=== PATIENT | female | born 1975 | race Caucasian/White ===

== ENCOUNTER 2019-11-04 08:34 | Emergency (ER) | payer OTHER, SELFPAY ==
[2019-11-04 08:43] VITALS: BP 117/68; PULSE 68; RESP 16; TEMP 36.9; O2SAT 100
--- NOTE | 2019-11-04 08:49 | ED.GENADULT ---
HPI - General Adult General Chief complaint: Ear Stated complaint: Ear Pain Time Seen by Provider: 11/04/19 09:06 Source: patient Mode of arrival: ambulatory Limitations: no limitations History of Present Illness HPI narrative: 43-year-old female patient resents to the [facility] with complaints of right ear pain. Patient states that she has had this off and on for the past 2 weeks but is gotten increasingly worse the past couple of days. Patient states she is also been having some cold and sinus symptoms for the past 2 weeks as well that she has been taking Tylenol and ibuprofen for but denies taking any other medication for symptoms. Denies any fevers. Denies any sore throat or coughing but states that she has had a little bit of a stuffy nose. Patient denies any chest pain or shortness of breath. Patient denies getting a flu shot this year. Related Data Home Medications Medication Instructions Recorded Confirmed albuterol sulfate INHALATION 11/04/19 dextroamphetamine-amphetamine 11/04/19 hydrocodone-acetaminophen 11/04/19 ibuprofen 11/04/19 ipratropium-albuterol [Combivent INHALATION 11/04/19 Respimat] tramadol mg 11/04/19 zolpidem 11/04/19 Allergies Allergy/AdvReac Type Severity Reaction Status Date / Time No Known Allergies Allergy Unknown Verified 11/29/18 20:54 Review of Systems Review of Systems: Narrative: CONSTITUTIONAL: Denies fever, chills, or sweats. EYES: Denies visual changes, redness, or discharge. ENT: Positive rhinorrhea, congestion, denies sore throat, positive right otalgia. CARDIOVASCULAR: Denies chest pain, palpitations, or edema. RESPIRATORY: Denies cough or dyspnea. GASTROINTESTINAL: Denies abdominal pain, nausea, vomiting, or diarrhea. GENITOURINARY: Denies dysuria or hematuria. SKIN: Denies rash or itching. MUSCULOSKELETAL: Denies back pain, joint pain, or myalgia. NEUROLOGIC: Positive headache, denies numbness, or weakness. PSYCHIATRIC: Denies anxiety or depression. COUNTS INCLUDE 234 BEDS AT THE [facility] Family History Family History Father Hypertension Family history of elevated blood lipids Family history of congestive heart failure Family history of lung cancer Family history of coronary artery disease Social History Social History Smoking status: Current every day smoker Alcohol intake: never Comments At the time of my signature I agree with nursing past medical history, surgical, social, and family history. There is no relevant family history pertinent to the presenting complaint. Exam Narrative: Exam Narrative: GENERAL: Well-appearing, well-nourished, and in no acute distress. HEAD: Normocephalic, atraumatic. No tenderness noted to frontal maxillary sinuses on palpation. EYES: PERRLA and EOMI. ENT: Nares with erythema and edema noted bilaterally, no rhinorrhea or epistaxis. Mucous membranes moist. Posterior pharynx with no erythema, tonsillectomy, exudates or lesions present. The left TM is clear with no erythema or foreign bodies in the canal. The right TM does have a significant amount of fluid behind the ear but there is no erythema no foreign bodies in the canal. NECK: Supple. No lymphadenopathy CHEST: Clear to auscultation. No respiratory distress. HEART: Regular rate and rhythm. No murmur heard. Normal peripheral pulses. ABDOMEN: Soft, nontender, nondistended, normal active bowel sounds. EXTREMITIES: Normal range of motion. No edema. SKIN: Warm, dry, no rash. NEURO: No focal deficits. Alert and oriented x3. Course Vital Signs Vital signs: Vital Signs Temperature 36.9 C 11/04/19 08:43 Pulse Rate 68 11/04/19 08:43 Respiratory Rate 16 11/04/19 08:43 Blood Pressure 117/68 11/04/19 08:43 Pulse Oximetry 100 11/04/19 08:43 Temperature 36.9 C 11/04/19 08:43 Pulse Rate 68 11/04/19 08:43 Respiratory Rate 16 11/04/19 08:43 Blood Pressure 1
== END 2019-11-04 09:21 | disposition home or self-care (01) ==
PROVIDERS: Emergency Provider Nurse Practitioner Family; PCP Emergency Medicine
DX: J01.90 Acute sinusitis, unspecified (principal); H93.8X1 Other specified disorders of right ear; F17.200 Nicotine dependence, unspecified, uncomplicated; J45.909 Unspecified asthma, uncomplicated; M79.7 Fibromyalgia
CPT/HCPCS: 99213; G0463

== ENCOUNTER 2019-11-23 18:09 | Emergency (ER) | payer OTHER, SELFPAY ==
[2019-11-23 18:30] VITALS: BP 125/65; PULSE 67; RESP 16; TEMP 37.1; O2SAT 98
--- NOTE | 2019-11-23 18:37 | ED.GENADULT ---
HPI - General Adult General Chief complaint: Ear Stated complaint: Earache/Toothache Time Seen by Provider: 11/23/19 18:39 Source: patient Mode of arrival: ambulatory Limitations: no limitations History of Present Illness HPI narrative: 43-year-old female patient presents to the [facility] with complaints of right ear pain for the past 2 to 3 weeks. Patient states she was seen here 2 weeks ago and was given a daily antihistamine, nasal steroid and an oral steroid for fluid behind the ears. Patient states that the oral steroid really did not help much but continues to take the Flonase and Zyrtec which she also feels like is not helping much either. Patient states that the pain to the right ear is actually shooting down that she also making her jaw painful. Patient states that she does have a broken tooth and back that is been broken for a long time so she is unsure if the pain is actually coming from the tooth or the ear. Denies any fevers. Denies any stuffy nose, runny nose, coughing, chest pain, shortness of breath or abdominal pain. Related Data Home Medications Medication Instructions Recorded Confirmed albuterol sulfate INHALATION 11/04/19 dextroamphetamine-amphetamine 11/04/19 hydrocodone-acetaminophen 11/04/19 ibuprofen 11/04/19 ipratropium-albuterol [Combivent INHALATION 11/04/19 Respimat] tramadol mg 11/04/19 zolpidem 11/04/19 Allergies Allergy/AdvReac Type Severity Reaction Status Date / Time No Known Allergies Allergy Unknown Verified 11/29/18 20:54 Review of Systems Review of Systems: Narrative: CONSTITUTIONAL: Denies fever, chills, or sweats. EYES: Denies visual changes, redness, or discharge. ENT: Denies rhinorrhea, congestion, sore throat, positive right otalgia. Positive right-sided jaw pain CARDIOVASCULAR: Denies chest pain, palpitations, or edema. RESPIRATORY: Denies cough or dyspnea. GASTROINTESTINAL: Denies abdominal pain, nausea, vomiting, or diarrhea. GENITOURINARY: Denies dysuria or hematuria. SKIN: Denies rash or itching. MUSCULOSKELETAL: Denies back pain, joint pain, or myalgia. NEUROLOGIC: Denies headache, numbness, or weakness. PSYCHIATRIC: Denies anxiety or depression. [facility]MERLY [facility], 1928–1983 Social History Social History Smoking status: Current every day smoker Alcohol intake: never Comments At the time of my signature I agree with nursing past medical history, surgical, social, and family history. There is no relevant family history pertinent to the presenting complaint. Exam Narrative: Exam Narrative: GENERAL: Well-appearing, well-nourished, and in no acute distress. HEAD: Normocephalic, atraumatic. EYES: PERRLA and EOMI. ENT: Nares clear, no rhinorrhea or epistaxis. Mucous membranes moist. Posterior pharynx with no erythema, tonsillar margin, exudates or lesions present. There is a broken tooth to the right back molar on the bottom but there is no surrounding erythema or tenderness noted on palpation. Bilateral TMs are clear no erythema or foreign bodies in the canal. No fluid noted behind the TMs at this time. NECK: Supple. No lymphadenopathy CHEST: Clear to auscultation. No respiratory distress. HEART: Regular rate and rhythm. No murmur heard. Normal peripheral pulses. ABDOMEN: Soft, nontender, nondistended, normal active bowel sounds. EXTREMITIES: Normal range of motion. No edema. SKIN: Warm, dry, no rash. NEURO: No focal deficits. Alert and oriented x3. Course Vital Signs Vital signs: Vital Signs Temperature 37.1 C 11/23/19 18:30 Pulse Rate 67 11/23/19 18:30 Respiratory Rate 16 11/23/19 18:30 Blood Pressure 125/65 11/23/19 18:30 Pulse Oximetry 98 11/23/19 18:30 Temperature 37.1 C 11/23/19 18:30 Pulse Rate 67 11/23/19 18:30 Respiratory Rate 16 11/23/19 18:30 Blood Pressure 125/65 11/23/19 18:30 Pulse Oximetry 98 11/23/19 18:30 Vital signs reviewed. Medical Decision Making
== END 2019-11-23 18:52 | disposition home or self-care (01) ==
PROVIDERS: Emergency Provider Nurse Practitioner Family; PCP Emergency Medicine
DX: H92.01 Otalgia, right ear (principal); F17.200 Nicotine dependence, unspecified, uncomplicated
CPT/HCPCS: 99213; G0463

== ENCOUNTER 2020-08-25 20:59 | Emergency (ER) | payer OTHER, SELFPAY ==
--- NOTE | ~2020-08-25 | XR_ITS ---
EXAMINATION: XR chest 1V portable DATE: 08/25/2020 21:51 INDICATION: Cough, congestion, wheezing, fever, body aches TECHNIQUE: frontal view of the chest was obtained. COMPARISON: Chest radiograph dated 05/08/2018 FINDINGS: The lungs remain clear with no focal airspace opacities, pulmonary edema, pleural effusion or pneumot horax. The cardiomediastinal silhouette is normal. Visualized bones and soft tissues are unremarkable . IMPRESSION: 1. No acute cardiopulmonary disease. Reviewed, dictated and finalized at location [facility]. [facility]
[2020-08-25 21:02] VITALS: BP 132/77; PULSE 101; RESP 18; TEMP 36.8
--- NOTE | 2020-08-25 21:17 | ED.URI ---
HPI - URI/Sore Throat General Chief Complaint: Upper Respiratory Infection Stated Complaint: flu like symptoms Time Seen by Provider: 08/25/20 21:17 Source: patient Mode of arrival: ambulatory Limitations: no limitations History of Present Illness HPI Narrative: Patient is a 44-year-old who presents for evaluation of flulike symptoms. States she started feeling unwell a week ago with low-grade fever, sore throat, rhinorrhea and congestion. No loss of sense of taste or smell. Patient reports fatigue and myalgias. She reports sore throat has improved. She reports dry cough without hemoptysis. She reports that she has been wheezing, she does endorse that she is a daily smoker. She denies any history of COPD or emphysema. Patient reports some intermittent shortness of breath, she denies any chest pain. Patient is concerned she may have pneumonia or influenza. Patient has follow-up with her primary care physician next week. Related Data Home Medications Medication Instructions Recorded Confirmed albuterol sulfate INHALATION 11/04/19 dextroamphetamine-amphetamine 11/04/19 hydrocodone-acetaminophen 11/04/19 ibuprofen 11/04/19 ipratropium-albuterol [Combivent INHALATION 11/04/19 Respimat] tramadol mg 11/04/19 zolpidem 11/04/19 Allergies Allergy/AdvReac Type Severity Reaction Status Date / Time No Known Allergies Allergy Unknown Verified 11/29/18 20:54 Review of Systems Review of Systems: Narrative: CONSTITUTIONAL: Reports intermittent fever and chills EYES: Denies visual changes, redness, or discharge. ENT: Reports rhinorrhea, congestion, sore throat CARDIOVASCULAR: Denies chest pain, palpitations, or edema. RESPIRATORY: Reports cough, reports intermittent mild shortness of breath GASTROINTESTINAL: Denies abdominal pain, nausea, vomiting, or diarrhea. GENITOURINARY: Denies dysuria or hematuria. SKIN: Denies rash or itching. MUSCULOSKELETAL: Denies back pain, joint pain, reports myalgias NEUROLOGIC: Denies headache, numbness, or weakness. [facility] Past Medical History Medical History Asthma Endometriosis Fibromyalgia Surgical History Surgical History H/O: hysterectomy Family History Family History Father Hypertension Family history of elevated blood lipids Family history of congestive heart failure Family history of lung cancer Family history of coronary artery disease Social History Social History Smoking status: Current every day smoker Alcohol intake: never Exam Narrative: Exam Narrative: GENERAL: Awake, alert, conversant HEAD: Normocephalic, atraumatic. EYES: PERRLA and EOMI. ENT: Nares clear, no rhinorrhea or epistaxis. Mucous membranes moist. Oropharynx is clear. No erythema or exudate. NECK: Supple. CHEST: No respiratory distress, breathing even and non labored, faint bilateral expiratory wheezing in the upper and lower lobes, coarse respirations HEART: Regular rate, sinus rhythm, no murmur ABDOMEN:Non distended, non tender EXTREMITIES: Normal range of motion. No edema. SKIN: Warm, dry, no rash. NEURO:No focal deficits. Alert and oriented x3 Course Vital Signs Vital signs: Vital Signs Temperature 36.8 C 08/25/20 21:02 Pulse Rate 101 H 08/25/20 21:02 Respiratory Rate 18 08/25/20 21:02 Blood Pressure 132/77 08/25/20 21:02 Temperature 36.8 C 08/25/20 21:02 Pulse Rate 72 08/25/20 22:27 Respiratory Rate 20 08/25/20 22:27 Blood Pressure 132/77 08/25/20 21:02 MDM - URI/Sore Throat MDM Narrative Medical decision making narrative: Patient presented for evaluation of fever, myalgias, cough. The time of assessment, ABCs are intact and vital signs are stable. No increased work of breathing or respiratory distress. Patient with m
--- NOTE | 2020-08-25 22:05 | PC.NURSE ---
Addendum entered by Diane Young RN 08/25/20 22:23: patient seen at 2150 Original Note: patient brought back to ED room 21 with possible flu-like symptoms vs covid. see triage notes. patient has been out in our waiting area due to no available beds. sitting on stretcher. alert. oriented. assessments documented. no distress. call light in reach. aware of expected wait time.
[2020-08-25 22:11] LABS: Basophils Absolute Auto 0.1 K/mm3 (0.0-0.1); Basophils Percent Auto 0.5 % (0.2-1.2); Eosinophils Absolute Auto 0.5 K/mm3 (0-0.3); Eosinophils Percent Auto 4.4 % (0-4.4); Hematocrit 41.6 % (37.0-47.0); Hemoglobin 14.1 g/dL (12.0-15.0); Immature Granulocyte Absolute 0.03 K/mm3 (0.00-0.031); Immature Granulocyte Percent A 0.3 % (0-0.5); Lymphocytes Absolute Auto 3.65 K/mm3 (0.9-3.2); Lymphocytes Percent Auto 33.2 % (18.3-44.2); Mean Corpuscular HGB Conc 33.9 g/dl (32-36); Mean Corpuscular Hemoglobin 29.6 pg (26-34); Mean Corpuscular Volume 87.2 fl (80-100); Mean Platelet Volume 9.1 fl (7.4-10.4); Monocytes Absolute Auto 0.6 K/mm3 (0.1-0.6); Monocytes Percent Auto 5.7 % (2.6-8.5); Neutrophils Absolute Auto 6.1 K/mm3 (1.3-6.7); Neutrophils Percent Auto 55.9 % (45.5-73.1); Platelet Count Result 436 k/mm3 (150-375); Red Blood Count 4.77 M/mm3 (4.2-5.4); Red Cell Distribution Width 13.3 % (11.5-14.5)
--- NOTE | 2020-08-25 22:15 | PC.NURSE ---
flu swab, strep swab and covid swab done. electronic prepress technician in room for labs. patient updated on current treatment plan and expected wait time. call light in reach. ice water offered. kleenex given.
[2020-08-25 22:19] VITALS: PULSE 68; RESP 20
[2020-08-25 22:19] LABS: Anion Gap 8 mmol/L (8-16); Blood Urea Nitrogen 12 mg/dL (7-17); Calcium 9.7 mg/dL (8.4-10.2); Carbon Dioxide 28 mmol/L (22-30); Chloride 102 mmol/L (98-107); Estimated CRCL calculation 80 ml/min; Estimated Glomerular Filt Rate > 60; Glucose 93 mg/dL (65-105); Potassium 4.1 mmol/L (3.4-5.0); Sodium 138 mmol/L (137-145)
[2020-08-25] MEDS: ALBUTEROL SULFATE NEB 2.5 MG/0.5 ML INH 5 MG INHALATION (22:19)
[2020-08-25] MEDS: IPRATROPIUM BR 0.02% INH SOLN 0.5 MG/2.5 ML VIAL INHALATION (22:19)
--- NOTE | 2020-08-25 22:23 | PC.NURSE ---
respiratory in room now.
--- NOTE | 2020-08-25 22:24 | PC.NURSE ---
patient updated on flu results and strep results.
[2020-08-25 22:27] VITALS: PULSE 72; RESP 20
--- NOTE | 2020-08-25 22:36 | PC.NURSE ---
provider here to see patient.
[2020-08-25 22:47] VITALS: BP 124/70; PULSE 68; RESP 16; TEMP 36.6; O2SAT 96
[2020-08-26 14:03] LABS: SARS-CoV-2 RNA PCR Negative
== END 2020-08-25 22:51 | disposition home or self-care (01) ==
PROVIDERS: Emergency Provider Emergency Medicine; PCP Emergency Medicine
DX: J06.9 Acute upper respiratory infection, unspecified (principal); Z20.828 Contact with and (suspected) exposure to other viral communicable diseases; J45.909 Unspecified asthma, uncomplicated; N80.9 Endometriosis, unspecified; M79.7 Fibromyalgia; F17.200 Nicotine dependence, unspecified, uncomplicated
CPT/HCPCS: 36415; 71045; 80048; 85025; 87081; 87635; 87804; 87880; 94640; 99283; C9803; U0003

== ENCOUNTER 2021-05-09 16:05 | Emergency (ER) | payer OTHER, SELFPAY ==
[2021-05-09 16:43] VITALS: BP 133/78; PULSE 74; RESP 18; TEMP 36.4; O2SAT 98
[2021-05-09 17:14] LABS: Basophils Absolute Auto 0.1 K/mm3 (0.0-0.1); Basophils Percent Auto 0.9 % (0.2-1.2); Eosinophils Absolute Auto 0.5 K/mm3 (0-0.3); Eosinophils Percent Auto 6.4 % (0-4.4); Hematocrit 41.5 % (37.0-47.0); Hemoglobin 13.8 g/dL (12.0-15.0); Immature Granulocyte Absolute 0.02 K/mm3 (0.00-0.031); Immature Granulocyte Percent A 0.2 % (0-0.5); Lymphocytes Absolute Auto 2.74 K/mm3 (0.9-3.2); Lymphocytes Percent Auto 33.5 % (18.3-44.2); Mean Corpuscular HGB Conc 33.3 g/dl (32-36); Mean Corpuscular Hemoglobin 29.5 pg (26-34); Mean Corpuscular Volume 88.7 fl (80-100); Mean Platelet Volume 9.7 fl (7.4-10.4); Monocytes Absolute Auto 0.7 K/mm3 (0.1-0.6); Monocytes Percent Auto 8.3 % (2.6-8.5); Neutrophils Absolute Auto 4.1 K/mm3 (1.3-6.7); Neutrophils Percent Auto 50.7 % (45.5-73.1); Platelet Count Result 381 k/mm3 (150-375); Red Blood Count 4.68 M/mm3 (4.2-5.4); Red Cell Distribution Width 13.2 % (11.5-14.5); White Blood Count 8.2 K/mm3 (4.5-10.0)
[2021-05-09 17:24] LABS: Anion Gap 9 mmol/L (8-16); Blood Urea Nitrogen 11 mg/dL (7-17); Calcium 9.9 mg/dL (8.4-10.2); Carbon Dioxide 26 mmol/L (22-30); Chloride 105 mmol/L (98-107); Estimated CRCL calculation 69 ml/min; Estimated Glomerular Filt Rate > 60; Glucose 85 mg/dL (65-110); Potassium 4.1 mmol/L (3.4-5.0); Sodium 140 mmol/L (137-145)
[2021-05-09 18:51] LABS: Add Urine Microscopic? YES; Amorphous Sediment Urine Few; Appearance Urine Cloudy (Clear); Bacteria Urine Trace /hpf; Bilirubin Urine 1+ (Negative); Blood Urine 2+ (Negative); Color Urine Amber (Yellow); Glucose Urine UA Negative (Negative); Ketones Urine Negative (Negative); Leukocyte Esterase Ur Negative LEU/UL (Negative); Mucus Urine Heavy /lpf; Nitrate Urine Negative (Negative); Protein Urine 1+ mg/dL (Negative); RBC Urine 21-50 /hpf (0-2); Squamous Epithelial Cell Urine Many /hpf (Few); WBC Urine 0-3 /hpf
[2021-05-09 18:52] LABS: Specific Grav Ur 1.035 (1.001-1.035)
--- NOTE | 2021-05-09 19:53 | ED.GENADULT ---
HPI - General Adult General Chief complaint: Back Pain/Injury Stated complaint: Middle back pain Time Seen by Provider: 05/09/21 18:58 Source: patient and RN notes reviewed Mode of arrival: ambulatory Limitations: no limitations History of Present Illness HPI narrative: Patient is a 45-year-old female who presents to emergency department for evaluation of blood low back pain on the right side for the last couple of days pain does not radiate not made worse with activity or movement patient denies any other injury or trauma does have history of chronic low back pain also notes chronic blood in her urine she has not followed up with a specialist for does not appear uncomfortable or distressed upon arrival Related Data Home Medications Medication Instructions Recorded Confirmed albuterol sulfate INHALATION 11/04/19 dextroamphetamine-amphetamine 11/04/19 hydrocodone-acetaminophen 11/04/19 ibuprofen 11/04/19 ipratropium-albuterol [Combivent INHALATION 11/04/19 Respimat] tramadol mg 11/04/19 zolpidem 11/04/19 Allergies Allergy/AdvReac Type Severity Reaction Status Date / Time No Known Allergies Allergy Unknown Verified 11/29/18 20:54 Review of Systems Review of Systems: All systems reviewed & are unremarkable except as noted in HPI and below PMFSH Past Medical History Medical History Asthma Endometriosis Fibromyalgia Surgical History Surgical History H/O: hysterectomy Family History Family History Father Hypertension Family history of elevated blood lipids Family history of congestive heart failure Family history of lung cancer Family history of coronary artery disease Social History Social History Smoking status: Current every day smoker Alcohol intake: never Gender identity (if verbalized by the patient): Female Exam Narrative: GENERAL: Well-appearing, well-nourished, and in no acute distress. HEAD: Normocephalic, atraumatic. EYES: PERRLA and EOMI. ENT: Nares clear, no rhinorrhea or epistaxis. Mucous membranes moist. CHEST: Clear to auscultation. No respiratory distress. No wheezes rales or rhonchi HEART: Regular rate and rhythm. No murmur heard. Normal peripheral pulses. ABDOMEN: Soft, nontender, nondistended EXTREMITIES: Normal range of motion. No edema. No tenderness of the lumbar region or deformities noted SKIN: Warm, dry, no rash. NEURO: No focal deficits. Alert and oriented x3. Cranial nerves II through XII grossly intact PSYCH: Normal mood and affect. Course Course Emergency Course: Patient in the room in no distress aware of case findings treatment plan diagnosis will follow with urology for hematuria and primary care for her low back is felt appropriate for outpatient reevaluation and agrees with this plan patient notes she has had some constipation which will also be treated Vital Signs Vital signs: Vital Signs Temperature 97.6 F 05/09/21 16:43 Pulse Rate 74 05/09/21 16:43 Respiratory Rate 18 05/09/21 16:43 Blood Pressure 133/78 05/09/21 16:43 Pulse Oximetry 98 05/09/21 16:43 Temperature 97.6 F 05/09/21 16:43 Pulse Rate 74 05/09/21 16:43 Respiratory Rate 18 05/09/21 16:43 Blood Pressure 133/78 05/09/21 16:43 Pulse Oximetry 98 05/09/21 16:43 Medical Decision Making MDM Narrative Medical decision making narrative: Patient in the room no distress will be treated for constipation and back pain her abdomen is nontender she is afebrile nontoxic-appearing and without emesis and felt appropriate for outpatient reevaluation Vital Signs Vital Signs: Vital Signs Temperature 97.6 F 05/09/21 16:43 Pulse Rate 74 05/09/21 16:43 Respiratory Rate 18 05/09/21 16:43 Blood Pressure 133/78 05/09/21 16:
[2021-05-09 20:07] VITALS: BP 122/78; PULSE 61; RESP 18; TEMP 36.2; O2SAT 100
== END 2021-05-09 20:09 | disposition home or self-care (01) ==
PROVIDERS: Emergency Provider Emergency Medicine; PCP Emergency Medicine
DX: M54.5 Low back pain (principal); K59.00 Constipation, unspecified; J45.909 Unspecified asthma, uncomplicated; N80.9 Endometriosis, unspecified; M79.7 Fibromyalgia; F17.200 Nicotine dependence, unspecified, uncomplicated
CPT/HCPCS: 36415; 80048; 81001; 85025; 99283

== ENCOUNTER 2021-07-15 16:52 | Emergency (ER) | payer OTHER, SELFPAY ==
--- NOTE | ~2021-07-15 | XR_ITS ---
EXAMINATION: XR foot LT min 3V EXAM DATE: 07/15/2021 17:18 INDICATION: Slipped, injured 1st metatarsal . Left foot pain. Initial encounter. TECHNIQUE: Left foot dorsoplantar, lateral and oblique projections obtained and reviewed. There is n o prior study for comparison. FINDINGS: Left metatarsal bones unremarkable. There are no acute fractures or dislocations identifi ed. There is no subcutaneous gas. The soft tissue is unremarkable. There are no radiopaque foreig n bodies. IMPRESSION: 1. XR foot LT min 3V exam without acute osseous findings. Reviewed, dictated and finalized at location G.
[2021-07-15 17:12] VITALS: BP 96/79; PULSE 65; RESP 16; TEMP 36.4; O2SAT 99
--- NOTE | 2021-07-15 17:33 | ED.LOWEXIN ---
HPI - Extremity Injury (Lower) General Chief Complaint: Extremity Injury, Lower Stated Complaint: left foot Pain Time Seen by Provider: 07/15/21 17:39 Source: patient Mode of arrival: ambulatory Limitations: no limitations History of Present Illness HPI Narrative: Lorenza Hanna is a 45 yo female with PMH of asthma fibromyalgia brought to [facility] after sliding on some hill losing her balance and causing pain to her left great toe on the solar side. She has had some swelling and pain when she tries to put on shoes or tennis shoes so she has been wearing thongs and sliders all week but the pain is still persistent. Here for evaluation of toe Related Data Home Medications Medication Instructions Recorded Confirmed albuterol sulfate INHALATION 11/04/19 dextroamphetamine-amphetamine 11/04/19 hydrocodone-acetaminophen 11/04/19 ibuprofen 11/04/19 ipratropium-albuterol [Combivent INHALATION 11/04/19 Respimat] tramadol mg 11/04/19 zolpidem 11/04/19 cyclobenzaprine mg 07/15/21 Allergies Allergy/AdvReac Type Severity Reaction Status Date / Time No Known Allergies Allergy Unknown Verified 07/15/21 17:29 Review of Systems Review of Systems: CONSTITUTIONAL: Denies fever, chills, sweats. EYES: Denies visual changes, redness, discharge. ENT: Denies rhinorrhea, congestion, sore throat, otalgia. CARDIOVASCULAR: Denies chest pain, palpitations, edema. RESPIRATORY: Denies dyspnea, wheezing, cough GASTROINTESTINAL: Denies abdominal pain, nausea, vomiting, diarrhea. GENITOURINARY: Denies dysuria, hematuria, abnormal discharge SKIN: Denies rash or itching. NEUROLOGIC: Denies numbness, or focal weakness. PSYCHIATRIC: Denies anxiety or depression. Left great toe pain PMFSH Past Medical History Medical History Asthma Endometriosis Fibromyalgia Surgical History Surgical History H/O: hysterectomy Family History Family History Father Hypertension Family history of elevated blood lipids Family history of congestive heart failure Family history of lung cancer Family history of coronary artery disease Social History Social History Smoking status: Current every day smoker Alcohol intake: never Gender identity (if verbalized by the patient): Female Comments At time of signature, I agree with nursing past medical, surgical, social and family history. There is no relevant family history pertinent to the presenting complaint. Exam Narrative: GENERAL: This is a well-nourished, well-developed patient, in mild distress. HEAD: normocephalic, atraumatic. EYES:Sclera clear/white. Vision is grossly intact. EARS: External ears normal, Hearing grossly intact. NOSE: External nose normal without nasal discharge, nares without redness, no rhinorrhea. THROAT: Mucous membranes moist, NECK: Neck supple, CARDIOVASCULAR: Regular rate and rhythm without murmurs, gallops, or rubs. RESPIRATORY: Clear to auscultation. Breath sounds equal bilaterally. No wheezes, rales, or rhonchi. GASTROINTESTINAL: Abdomen soft, SKIN: warm, intact with no suspicious lesions or rash, good texture and turgor. NEURO: awake, alert, and oriented to person, place and time. There were no obvious focal neurologic abnormalities. Steady gait EXTREMITIES: Normal range of motion. Left great toe is mildly swollen no ecchymosis the patient is unable to flex toe as she states she used to be able to and can do so with the right toe; mild pain on walking BACK: Nontender without deformity Course Course Emergency Course: Patient came after sliding and stubbing her toe X-ray shows no osseous findings no acute fracture subluxation or dislocation Patient placed in postop shoe and Trung wrap and told to take left 600 mg of ibuprofen 3 time
[2021-07-15 17:35] VITALS: BP 96/79; PULSE 65; RESP 16; TEMP 36.4; O2SAT 99
== END 2021-07-15 17:55 | disposition home or self-care (01) ==
PROVIDERS: Emergency Provider Nurse Practitioner; PCP Emergency Medicine
DX: S93.502A Unspecified sprain of left great toe, initial encounter (principal); W10.2XXA Fall (on)(from) incline, initial encounter; J45.909 Unspecified asthma, uncomplicated; N80.9 Endometriosis, unspecified; M79.7 Fibromyalgia
CPT/HCPCS: 73630; 99213; G0463

== ENCOUNTER 2021-07-27 15:10 | Emergency (ER) | payer OTHER, SELFPAY ==
--- NOTE | 2021-07-27 15:21 | ED.URI ---
HPI - URI/Sore Throat General Chief Complaint: Upper Respiratory Infection Stated Complaint: sore throat Time Seen by Provider: 07/27/21 15:40 Source: patient and RN notes reviewed Mode of arrival: ambulatory Limitations: no limitations History of Present Illness HPI Narrative: Lorenza is a 45-year-old female patient arrives ambulatory to the [facility]. Patient states she has had sneezing and cough since July 22. Patient states she has a sore throat feels like her chest hurts when she takes a deep breath. Patient states the family has been quarantined since when her daughter was sent home with a fever. Patient states that her sister was overall for dinner last Monday on 07/19 and was diagnosed with Covid on July 24. Patient states she has not used any [id number]-jgradoj medicines. Patient states that both daughters have also been sick since last . MD elicited complaint: sore throat and nasal congestion Related Data Home Medications Medication Instructions Recorded Confirmed albuterol sulfate INHALATION 11/04/19 dextroamphetamine-amphetamine 11/04/19 hydrocodone-acetaminophen 11/04/19 tramadol mg 11/04/19 zolpidem 11/04/19 cyclobenzaprine mg 07/15/21 Allergies Allergy/AdvReac Type Severity Reaction Status Date / Time No Known Allergies Allergy Unknown Verified 07/15/21 17:29 Review of Systems Review of Systems: CONSTITUTIONAL: Denies body aches, fever, chills, or sweats. EYES: Denies visual changes, redness, or discharge. ENT: Denies rhinorrhea,+ congestion,+ sore throat, + right otalgia. CARDIOVASCULAR: Denies chest pain, palpitations, or edema. RESPIRATORY: Denies dyspnea; + cough. GASTROINTESTINAL: Denies abdominal pain, +nausea, denies vomiting, or diarrhea. GENITOURINARY: Denies dysuria or hematuria. SKIN: Denies rash, itching, or wounds. MUSCULOSKELETAL: Denies back pain, joint pain, or myalgia. NEUROLOGIC: Denies headache, numbness, tingling, or weakness. PSYCH: Denies depression or anxiety. All systems reviewed & are unremarkable except as noted in HPI and below PMFSH Past Medical History Medical History Asthma Endometriosis Fibromyalgia Surgical History Surgical History H/O: hysterectomy Family History Family History Father Hypertension Family history of elevated blood lipids Family history of congestive heart failure Family history of lung cancer Family history of coronary artery disease Social History Social History Smoking status: Current every day smoker Alcohol intake: never Gender identity (if verbalized by the patient): Female Comments At time of signature, I have reviewed and agree with nursing past medical, surgical, social and family history unless otherwise noted. Please see nursing chart for further information. There is no relevant family history pertinent to the presenting complaint Exam Narrative: GENERAL: Well-appearing, well-nourished, and in no acute distress. HEAD: Normocephalic, atraumatic. EYES: EOMI. No redness or drainage. Conjunctivae normal. ENT: Mucous membranes pink and moist. Nares membranes erythemic. clear rhinorrhea. TMs : Right TM with moderate fluid, mild bulging, no erthema. Left TM with minimal fluid, no erythema. Throat with minimal erythema, clear post nasal drainage. Uvula midline. NECK: Normal AROM. Supple. No lymphadenopathy. CHEST: No respiratory distress. Clear to auscultation. MUSCULOSKELETAL: No bony tenderness. EXTREMITIES: Normal range of motion. No edema. SKIN: Warm, dry, no rash. Capillary refill normal. Normal skin turgor. NEURO: No focal deficits. Alert and oriented x3. Gait steady. PSYCH: Normal affect. No signs of depression or anxiety. C
[2021-07-27 15:29] VITALS: BP 115/75; PULSE 60; RESP 16; TEMP 36; O2SAT 99
== END 2021-07-27 16:20 | disposition home or self-care (01) ==
PROVIDERS: Emergency Provider Nurse Practitioner Family
DX: J00 Acute nasopharyngitis [common cold] (principal); Z20.822 Contact with and (suspected) exposure to COVID-19; J45.909 Unspecified asthma, uncomplicated; N80.9 Endometriosis, unspecified; M79.7 Fibromyalgia
CPT/HCPCS: 87426; 99212; C9803; G0463

== ENCOUNTER 2021-11-04 17:12 | Outpatient (CLI) | payer OTHER, SELFPAY ==
--- NOTE | ~2021-11-04 | MM_ITS ---
EXAMINATION: MM screening omari BI w nena HISTORY: Screening mammogram TECHNIQUE: Craniocaudal and mediolateral oblique 3-D tomosynthesis images were obtained and synthetic 2-D images were generated. CAD analysis was submitted and interpreted. COMPARISON: 01/07/2019 bilateral screening mammogram BREAST PARENCHYMAL COMPOSITION: The breasts are heterogeneously dense, which may obscure small masses . FINDINGS: There is no evidence of suspicious mass, calcification, or architectural distortion to sugg est malignancy in either breast. There has been no suspicious interval change. IMPRESSION: 1. No mammographic evidence of malignancy. 2. Recommend routine screening mammography in one year. BI-RADS Category 1: Negative Reviewed, dictated and finalized at location A. [employer]
== END 2021-11-04 17:13 | disposition home or self-care (01) ==
PROVIDERS: Visit Provider Emergency Medicine
DX: Z12.31 Encounter for screening mammogram for malignant neoplasm of breast (principal)
CPT/HCPCS: 77063; 77067

== ENCOUNTER 2021-12-24 12:21 | Emergency (ER) | payer OTHER, SELFPAY ==
[2021-12-24 12:33] VITALS: BP 93/73; PULSE 69; RESP 16; TEMP 36.8; O2SAT 99
--- NOTE | 2021-12-24 13:17 | ED.URI ---
HPI - URI/Sore Throat General Chief Complaint: Upper Respiratory Infection Stated Complaint: sore throat Time Seen by Provider: 12/24/21 12:50 Source: patient and RN notes reviewed Mode of arrival: ambulatory Limitations: no limitations History of Present Illness HPI Narrative: Patient presents today complaining of sore throat that started this morning. Both of her daughters also present with her with sore throats, and one has been diagnosed with strep throat. She currently rates her pain 4/10 and has tried no [id number] treatment prior to arrival. She denies any additional symptoms. MD elicited complaint: sore throat Related Data Home Medications Medication Instructions Recorded Confirmed dextroamphetamine-amphetamine 20 mg PO DAILY 11/04/19 12/24/21 hydrocodone-acetaminophen 1 tablet PO DIRECTED PRN 11/04/19 12/24/21 tramadol 50 mg PO DIRECTED 11/04/19 12/24/21 zolpidem 10 mg PO HS 11/04/19 12/24/21 Allergies Allergy/AdvReac Type Severity Reaction Status Date / Time No Known Allergies Allergy Unknown Verified 12/24/21 12:25 Review of Systems Review of Systems: CONSTITUTIONAL: Denies body aches, fever, chills, or sweats. EYES: Denies visual changes, redness, or discharge. ENT: Denies rhinorrhea, congestion, or otalgia.+ Sore throat CARDIOVASCULAR: Denies chest pain, palpitations, or edema. RESPIRATORY: Denies cough or dyspnea. GASTROINTESTINAL: Denies abdominal pain, nausea, vomiting, or diarrhea. GENITOURINARY: Denies dysuria or hematuria. SKIN: Denies rash, itching, or wounds. MUSCULOSKELETAL: Denies back pain, joint pain, or myalgia. NEUROLOGIC: Denies headache, numbness, tingling, or weakness. PSYCH: Denies depression or anxiety. [facility] Past Medical History Medical History Asthma Endometriosis Fibromyalgia Surgical History Surgical History H/O: hysterectomy Family History Family History Father Hypertension Family history of elevated blood lipids Family history of congestive heart failure Family history of lung cancer Family history of coronary artery disease Social History Social History Smoking status: Current every day smoker Alcohol intake: never Gender identity (if verbalized by the patient): Female Comments At time of signature, I have reviewed and agree with nursing past medical, surgical, social and family history unless otherwise noted. Please see nursing chart for further information. There is no relevant family history pertinent to the presenting complaint Exam Narrative: GENERAL: Well-appearing, well-nourished, and in no acute distress. HEAD: Normocephalic, atraumatic. EYES: EOMI. No redness or drainage. Conjunctivae normal. ENT: Mucous membranes pink and moist. Nares clear. No rhinorrhea. TMs normal bilaterally. Throat mildly erythematous without edema or exudate. Uvula midline. NECK: Normal AROM. Supple. 1 right posterior lymph node is mildly inflamed. CHEST: No respiratory distress. Clear to auscultation. HEART: Regular rate and rhythm. No murmur appreciated. Normal peripheral pulses. EXTREMITIES: Normal range of motion. No edema. SKIN: Warm, dry, no rash. Capillary refill normal. Normal skin turgor. NEURO: No focal deficits. Alert and oriented x3. Gait steady. PSYCH: Normal affect. No signs of depression or anxiety. Course Course Level of Care: Express Care Visit Vital Signs Vital signs: Vital Signs Temperature 98.3 F 12/24/21 12:33 Pulse Rate 69 12/24/21 12:33 Respiratory Rate 16 12/24/21 12:33 Blood Pressure 93/73 L 12/24/21 12:33 Pulse Oximetry 99 12/24/21 12:33 Temperature 98.3 F 12/24/21 12:33 Pulse Rate 69 12/24/21 12:33 Respiratory Rate 16 12/24/21 12:33 Blood P
== END 2021-12-24 13:27 | disposition home or self-care (01) ==
PROVIDERS: Emergency Provider Nurse Practitioner; PCP Emergency Medicine
DX: J02.9 Acute pharyngitis, unspecified (principal); F17.200 Nicotine dependence, unspecified, uncomplicated; J45.909 Unspecified asthma, uncomplicated; N80.9 Endometriosis, unspecified; M79.7 Fibromyalgia
CPT/HCPCS: 87081; 87880; 99213; G0463

== ENCOUNTER 2022-11-16 18:54 | Emergency (ER) | payer OTHER, SELFPAY ==
--- NOTE | 2022-11-16 18:56 | ED.URI ---
HPI - URI/Sore Throat General Chief Complaint: Upper Respiratory Infection Stated Complaint: fever/sore throat Time Seen by Provider: 11/16/22 18:55 Source: patient Mode of arrival: ambulatory Limitations: no limitations History of Present Illness HPI Narrative: Lorenza is a 46-year-old female patient presenting to the clinic today with complaints of fever and sore throat x 1 day. She reports she has had a fever of 101.8? F. Denies any known exposure to anybody with COVID, flu, or strep. MD elicited complaint: sore throat and nasal congestion Related Data Home Medications Medication Instructions Recorded Confirmed dextroamphetamine-amphetamine 20 20 mg PO DAILY 11/04/19 12/24/21 mg tablet hydrocodone 5 mg-acetaminophen 325 1 tablet PO DIRECTED PRN Pain 11/04/19 12/24/21 mg tablet tramadol 50 mg tablet 50 mg PO DIRECTED 11/04/19 12/24/21 zolpidem 10 mg tablet 10 mg PO HS 11/04/19 12/24/21 Allergies Allergy/AdvReac Type Severity Reaction Status Date / Time No Known Allergies Allergy Unknown Verified 11/16/22 18:59 Review of Systems Review of Systems: Pertinent positives per HPI. Patient denies any rash, headache, visual changes, dizziness, cough, shortness of breath, chest pain, palpitations, nausea, vomiting, diarrhea, constipation, abdominal pain, or any urinary issues. PMFSH Past Medical History Medical History Asthma Endometriosis Fibromyalgia Surgical History Surgical History H/O: hysterectomy Family History Family History Father Hypertension Family history of elevated blood lipids Family history of congestive heart failure Family history of lung cancer Family history of coronary artery disease Social History Social History Smoking status: Current every day smoker Alcohol intake: never Gender identity (if verbalized by the patient): Female Comments At the time of my signature, I reviewed and agree with the nursing past medical, surgical, social, and family history. There is no relevant family history pertinent to the patient complaint. Exam Narrative: General: Well-developed, well nourished, in no apparent distress Head: Normocephalic, atraumatic Eyes: Pupils equally round and reactive to light bilaterally, EOM intact, sclera and conjunctive clear, no discharge, lids normal Ears: TMs intact and clear, ear canals clear, no drainage, grossly hearing normal. Nose: Nares patent, clear discharge, no inflammation, no sinus tenderness. Mouth: Oral pharynx without lesions or masses, good dentition, MMM. Oropharynx red, postnasal drip Neck: Supple, trachea midline, no enlargement of anterior or posterior cervical nodes, no thyroid masses or goiter palpable. Cardio: Regular rate and rhythm, s1 and s2 normal, no murmur appreciated. Resp: Clear to auscultation bilaterally, no rhonchi, rales, wheezing or rubs Course Course Emergency Course: Portions of this record may have been created with voice recognition software. Level of Care: Express Care Visit Vital Signs Vital signs: Vital Signs Temperature 37.0 C 11/16/22 18:57 Pulse Rate 75 11/16/22 18:57 Respiratory Rate 16 11/16/22 18:57 Blood Pressure 124/76 11/16/22 18:57 Pulse Oximetry 100 11/16/22 18:57 Oxygen Delivery Room Air 11/16/22 18:57 Temperature 37.0 C 11/16/22 18:57 Pulse Rate 75 11/16/22 18:57 Respiratory Rate 16 11/16/22 18:57 Blood Pressure 124/76 11/16/22 18:57 Pulse Oximetry 100 11/16/22 18:57 Oxygen Delivery Room Air 11/16/22 18:57 Vital signs reviewed MDM - URI/Sore Throat MDM Narrative Medical decision making narrative: At the time of visit patient is resting comfortably on exam table. Strep screen was nega
[2022-11-16 18:57] VITALS: BP 124/76; PULSE 75; RESP 16; TEMP 37; O2SAT 100
== END 2022-11-16 19:35 | disposition home or self-care (01) ==
PROVIDERS: Emergency Provider Nurse Practitioner Family; PCP Emergency Medicine
DX: J02.8 Acute pharyngitis due to other specified organisms (principal); F17.200 Nicotine dependence, unspecified, uncomplicated; Z79.891 Long term (current) use of opiate analgesic; Z20.822 Contact with and (suspected) exposure to COVID-19
CPT/HCPCS: 87081; 87426; 87804; 87880; 99213; C9803; G0463

== ENCOUNTER 2023-02-18 10:32 | Emergency (ER) | payer OTHER, SELFPAY ==
[2023-02-18 10:47] VITALS: BP 122/74; PULSE 62; RESP 16; TEMP 36.6; O2SAT 98
--- NOTE | 2023-02-18 11:38 | ED.URI ---
HPI - URI/Sore Throat General Chief Complaint: Upper Respiratory Infection Stated Complaint: itchy throat, productive cough History of Present Illness HPI Narrative: 47-year-old female presented for complaint of sore throat occasional nonproductive cough since yesterday. Endorses daughter with similar symptoms. Has not taken anything for symptoms. Denies shortness of breath, wheezing, nausea, vomiting, fevers or chills. Related Data Home Medications Medication Instructions Recorded Confirmed dextroamphetamine-amphetamine 20 20 mg PO DAILY 11/04/19 02/18/23 mg tablet hydrocodone 5 mg-acetaminophen 325 1 tablet PO DIRECTED PRN Pain 11/04/19 02/18/23 mg tablet tramadol 50 mg tablet 50 mg PO DIRECTED 11/04/19 02/18/23 zolpidem 10 mg tablet 10 mg PO HS 11/04/19 02/18/23 Allergies Allergy/AdvReac Type Severity Reaction Status Date / Time No Known Allergies Allergy Unknown Verified 02/18/23 10:39 Review of Systems Review of Systems: CONSTITUTIONAL: Denies body aches, fever, chills, or sweats. EYES: Denies visual changes, redness, or discharge. ENT: Denies rhinorrhea, congestion, or otalgia. CARDIOVASCULAR: Denies chest pain, palpitations, or edema. RESPIRATORY: Denies dyspnea. GASTROINTESTINAL: Denies abdominal pain, nausea, vomiting, or diarrhea. SKIN: Denies rash, itching, or wounds. MUSCULOSKELETAL: Denies back pain, joint pain, or myalgia. NEUROLOGIC: Denies headache PMFSH Past Medical History Medical History Asthma Endometriosis Fibromyalgia Surgical History Surgical History H/O: hysterectomy Family History Family History Father Hypertension Family history of elevated blood lipids Family history of congestive heart failure Family history of lung cancer Family history of coronary artery disease Social History Social History Smoking status: Current every day smoker Alcohol intake: never Gender identity (if verbalized by the patient): Female Exam Narrative: GENERAL: well-appearing, no acute distress. EYES: conjunctivae clear ENT: Mucous membranes moist. TM pearly sellers with normal light reflex bilaterally; no tragal tenderness. Oropharynx erythematous without lesions. Tonsils absent. No drooling, no hoarseness, no trismus, uvula midline. No tripod positioning, hot potato voice, or soft palate swelling. NECK: Supple. No lymphadenopathy CHEST: Clear to auscultation, breath sounds equal. No respiratory distress, speaks in full sentences. HEART: Regular rate and rhythm. No murmur heard. SKIN: Warm, dry, no rash. NEURO: Alert and oriented x3. Course Course Emergency Course: Patient is aware of diagnosis, understands and agrees to treatment plan. Anticipatory guidance given. Patient agrees to follow-up as directed and is aware of reasons to seek care at the emergency department. Portions of this record may have been created with voice recognition software Level of Care: Express Care Visit Vital Signs Vital signs: Vital Signs Temperature 98 F 02/18/23 10:47 Pulse Rate 62 02/18/23 10:47 Respiratory Rate 16 02/18/23 10:47 Blood Pressure 122/74 02/18/23 10:47 Pulse Oximetry 98 02/18/23 10:47 Oxygen Delivery Room Air 02/18/23 10:47 Temperature 98 F 02/18/23 10:47 Pulse Rate 62 02/18/23 10:47 Respiratory Rate 16 02/18/23 10:47 Blood Pressure 122/74 02/18/23 10:47 Pulse Oximetry 98 02/18/23 10:47 Oxygen Delivery Room Air 02/18/23 10:47 MDM - URI/Sore Throat MDM Narrative Medical decision making narrative: strep result reviewed with pt. mother is requesting antibiotic treatment at this time, advised against it and to wait for culture. Mother refused. Advise supportive treatments.
== END 2023-02-18 11:45 | disposition home or self-care (01) ==
PROVIDERS: Emergency Provider Nurse Practitioner Family; PCP Emergency Medicine
DX: J02.9 Acute pharyngitis, unspecified (principal); F17.200 Nicotine dependence, unspecified, uncomplicated; J45.909 Unspecified asthma, uncomplicated; N80.9 Endometriosis, unspecified; M79.7 Fibromyalgia
CPT/HCPCS: 87081; 87880; 99213; G0463

== ENCOUNTER 2023-02-22 11:43 | Outpatient (CLI) | payer OTHER, SELFPAY ==
--- NOTE | ~2023-02-22 | MM_ITS ---
EXAMINATION: MM screening omari BI w nena HISTORY: Screening mammogram, family history of breast cancer in her mother. TECHNIQUE: Craniocaudal and mediolateral oblique 3-D tomosynthesis images were obtained and synthetic 2-D images were generated. CAD analysis was submitted and interpreted. COMPARISON: 11/04/2021, 01/07/2019 BREAST PARENCHYMAL COMPOSITION: The breasts are heterogeneously dense, which may obscure small masses . FINDINGS: RIGHT BREAST: No suspicious mass, calcification, or architectural distortion are identified to sugges t malignancy. There has been no suspicious interval change. LEFT BREAST: There is a possible mass in the middle third of the outer breast 5 cm from the nipple. I n addition, there is an asymmetry in the posterior third of inner breast on the craniocaudal view. IMPRESSION: 1. Left breast findings as above. 2. Additional mammographic views and possible breast ultrasound are recommended. BI-RADS Category 0: Incomplete: Needs additional imaging evaluation. Reviewed, dictated and finalized at location A. IMPRESSION: 1. Left breast findings as above. 2. Additional mammographic views and possible breast ultrasound are recommended . BI-RADS Category 0: Incomplete: Needs additional imaging evaluation.
== END 2023-02-22 11:44 | disposition home or self-care (01) ==
LOC: ANHIMG 11:44
PROVIDERS: PCP Emergency Medicine; Visit Provider Emergency Medicine
DX: Z12.31 Encounter for screening mammogram for malignant neoplasm of breast (principal); R92.8 Other abnormal and inconclusive findings on diagnostic imaging of breast
CPT/HCPCS: 77063; 77067

== ENCOUNTER 2023-04-27 14:40 | Emergency (ER) | payer OTHER, SELFPAY ==
--- NOTE | ~2023-04-27 | XR_ITS ---
XR chest 2V DATE: 04/27/2023 15:31 INDICATION: Chest pain TECHNIQUE: PA and lateral views COMPARISON: 08/25/2020 portable AP chest FINDINGS: Normal heart size. No hilar or mediastinal enlargement. No pulmonary infiltrate or consolid ation, pleural effusion or pulmonary vascular congestion or pneumothorax is detected. Included skelet al structures are unremarkable. IMPRESSION: No active cardiopulmonary disease Reviewed, dictated and finalized at location L.
--- NOTE | 2023-04-27 14:41 | ECG_ITS ---
Measurements Intervals [place] Rate: 62 P: 65 [place]: 134 QRS: -4 QRSD: 80 T: 48 QT: 419 QTc: 427 Interpretive Statements SINUS RHYTHM RSR' IN V1 OR V2, PROBABLY NORMAL VARIANT BASELINE ARTIFACT- II, III BORDERLINE ECG NO PREVIOUS ECG AVAILABLE FOR COMPARISON Electronically Signed On 04-27-2023 15:43:39 CDT by Rey Bliss D.O.
[2023-04-27 14:42] VITALS: BP 146/83; PULSE 62; RESP 16; TEMP 36.4; O2SAT 99
[2023-04-27 15:06] LABS: Basophils Absolute Auto 0.1 K/mm3 (0.0-0.1); Basophils Percent Auto 0.8 % (0.2-1.2); Eosinophils Absolute Auto 0.3 K/mm3 (0-0.3); Eosinophils Percent Auto 3.9 % (0-4.4); Hematocrit 36.5 % (37.0-47.0); Hemoglobin 12.3 g/dL (12.0-15.0); Immature Granulocyte Absolute 0.01 K/mm3 (0.00-0.031); Immature Granulocyte Percent A 0.1 % (0-0.5); Mean Corpuscular HGB Conc 33.7 g/dl (32-36); Mean Corpuscular Hemoglobin 29.1 pg (26-34); Mean Corpuscular Volume 86.3 fl (80-100); Mean Platelet Volume 9.2 fl (7.4-10.4); Monocytes Absolute Auto 0.5 K/mm3 (0.1-0.6); Monocytes Percent Auto 7.4 % (2.6-8.5); Neutrophils Absolute Auto 4.3 K/mm3 (1.3-6.7); Neutrophils Percent Auto 58.8 % (45.5-73.1); Platelet Count Result 380 k/mm3 (150-375); Red Blood Count 4.23 M/mm3 (4.2-5.4); Red Cell Distribution Width 12.9 % (11.5-14.5); White Blood Count 7.3 K/mm3 (4.5-10.0)
[2023-04-27 15:15] LABS: Prothrombin Time 13.9 Seconds (11.1-14.7)
[2023-04-27 15:16] LABS: Alanine Aminotransferase 20 U/L (6-35); Albumin Level 4.3 g/dL (3.5-5.1); Alkaline Phosphatase 52 U/L (38-126); Anion Gap 9 mmol/L (8-16); Aspartate Amino Transferase 24 U/L (14-36); Bilirubin,Total 0.5 mg/dL (0.2-1.3); Blood Urea Nitrogen 9 mg/dL (7-17); Carbon Dioxide 24 mmol/L (22-30); Chloride 103 mmol/L (98-107); Estimated CRCL calculation 68 ml/min; Estimated Glomerular Filt Rate > 60; Glucose 108 mg/dL (65-110); Lipase 86 U/L (23-300); Partial Thromboplastin Time 24.8 SECONDS (22.3-36.8); Potassium 3.1 mmol/L (3.4-5.0); Sodium 136 mmol/L (137-145)
[2023-04-27 15:28] LABS: Troponin I < 0.012 ng/mL (0.000-0.034)
[2023-04-27 16:54] VITALS: O2SAT 100
[2023-04-27 18:52] LABS: Troponin I < 0.012 ng/mL (0.000-0.034)
[2023-04-27 19:45] VITALS: PULSE 53; RESP 22; O2SAT 100
[2023-04-27 19:54] VITALS: BP 123/73
--- NOTE | 2023-04-27 20:08 | ED.CHESTPAIN ---
HPI - Chest Pain General Chief Complaint: Chest Pain Stated Complaint: cp Time Seen by Provider: 04/27/23 16:45 History of Present Illness HPI narrative: Patient is a 47-year-old female who presents ER with chest pain. Right side going into the armpit. Occurred for several seconds. Then it went away on its own. It then returned for 15 minutes. No radiation into the jaw. No dyspnea. No runny nose or sore throat or productive cough. Initially she could not talk due to the pain. No history of heart disease. No lower extremity swelling. No hemoptysis. Patient reports she was particularly active doing yard work yesterday. Related Data Home Medications Medication Instructions Recorded Confirmed dextroamphetamine-amphetamine 20 20 mg PO DAILY 11/04/19 02/18/23 mg tablet hydrocodone 5 mg-acetaminophen 325 1 tablet PO DIRECTED PRN Pain 11/04/19 02/18/23 mg tablet tramadol 50 mg tablet 50 mg PO DIRECTED 11/04/19 02/18/23 zolpidem 10 mg tablet 10 mg PO HS 11/04/19 02/18/23 Allergies Allergy/AdvReac Type Severity Reaction Status Date / Time No Known Allergies Allergy Unknown Verified 04/27/23 16:59 Review of Systems Review of Systems: All systems reviewed & are unremarkable except as noted in HPI and below Constitutional: Constitutional: Denies chills, Denies fatigue and Denies fever(s) ENT: Denies nasal congestion and Denies sore throat Cardiovascular: Cardiovascular: Reports chest pain, Denies rapid heart rate and Denies radiating jaw, neck or arm pain Respiratory: Respiratory: Denies cough and Denies dyspnea Gastrointestinal: Gastrointestinal: Denies abdominal pain, Denies nausea and Denies vomiting Integumentary/Breasts: Skin/Breast: Denies erythema and Denies rash PMF Past Medical History Medical History Asthma Endometriosis Fibromyalgia Surgical History Surgical History H/O: hysterectomy Family History Family History Father Hypertension Family history of elevated blood lipids Family history of congestive heart failure Family history of lung cancer Family history of coronary artery disease Social History Social History Smoking status: Current every day smoker Alcohol intake: never Gender identity (if verbalized by the patient): Female Exam Narrative: GENERAL: Well-appearing, well-nourished, and in no acute distress. HEAD: Normocephalic, atraumatic. ENT: Mucous membranes moist. CHEST: Clear to auscultation. No respiratory distress. HEART: Regular rate and rhythm. Normal peripheral pulses. ABDOMEN: Soft, nontender, nondistended. EXTREMITIES: Normal range of motion. No edema. SKIN: Warm, dry, no rash. NEURO: Alert and oriented x3. PSYCH: Normal mood and affect. Course Course Emergency Course: Patient resting comfortably. Troponin negative x2. EKG reassuring. Discharge home. Vital Signs Vital signs: Vital Signs Temperature 97.6 F 04/27/23 14:42 Pulse Rate 62 04/27/23 14:42 Respiratory Rate 16 04/27/23 14:42 Blood Pressure 146/83 H 04/27/23 14:42 Pulse Oximetry 99 04/27/23 14:42 Oxygen Delivery Room Air 04/27/23 14:42 Temperature 97.6 F 04/27/23 14:42 Pulse Rate 53 L 04/27/23 19:45 Respiratory Rate 22 H 04/27/23 19:45 Blood Pressure 123/73 04/27/23 19:54 Pulse Oximetry 100 04/27/23 19:45 Oxygen Delivery Room Air 04/27/23 16:54 MDM - Chest Pain Lab Data 04/27/23 14:57 04/27/23 14:57 Labs: Lab Results 04/27/23 04/27/23 Range/Units 14:57 18:21 WBC 7.3 (4.5-10.0) K/mm3 RBC 4.23 (4.2-5.4) M/mm3 Hgb 12.3 (12.0-15.0) g/dL Hct 36.5 L (37.0-47.0) % MCV 86.3 (80-100) fl MCH 29.1 (26-34) pg MCHC 33.7 (32-36) g/dl RDW
[2023-04-27 20:28] VITALS: BP 117/67
== END 2023-04-27 20:28 | disposition home or self-care (01) ==
PROVIDERS: Emergency Provider Emergency Medicine; PCP Emergency Medicine
DX: R07.9 Chest pain, unspecified (principal); J45.909 Unspecified asthma, uncomplicated; N80.9 Endometriosis, unspecified; M79.7 Fibromyalgia; F17.200 Nicotine dependence, unspecified, uncomplicated; R94.31 Abnormal electrocardiogram [ECG] [EKG]
CPT/HCPCS: 36415; 71046; 80053; 83690; 84484; 85025; 85610; 85730; 93005; 99284

== ENCOUNTER 2023-05-03 12:16 | Outpatient (CLI) | payer OTHER, SELFPAY ==
--- NOTE | ~2023-05-03 | MMUS_ITS ---
EXAMINATION: MM diagnostic omari LT w nena, US breast LT limited HISTORY: Left breast asymmetry and possible left breast mass on screening mammogram TECHNIQUE: Additional 3-D tomosynthesis images of the left breast were performed and synthetic 2-D im ages were generated. CAD analysis was submitted and interpreted. High resolution limited left breast ultrasound was performed. COMPARISON: 02/22/2023, 11/04/2021, 01/07/2019 BREAST PARENCHYMAL COMPOSITION: The breasts are heterogeneously dense, which may obscure small masses . FINDINGS: MAMMOGRAPHIC FINDINGS: There is a 5 mm round, obscured, equal density mass in the middle third of the outer breast at the 3: 00 location 4.5 cm from the nipple. A subtle asymmetry persists in the posterior third of the upper i nner breast 8 cm from the nipple. ULTRASOUND: There is a 6 mm cyst at the 2:00 location 3 cm from the nipple corresponding to the mammographic find ing in the upper outer breast. No sonographic correlate is identified for the asymmetry of the inner breast. IMPRESSION: 1. Probably benign asymmetry of the inner left breast. 2. Recommend 6 month follow-up left diagnostic mammogram and possible ultrasound. BI-RADS category 3, probably benign findings. Reviewed, dictated and finalized at location A. IMPRESSION: 1. Probably benign asymmetry of the inner left breast. 2. Recommend 6 month follow-up left diagnostic mammogram and possible ultrasoun d. BI-RADS category 3, probably benign findings.
== END 2023-05-03 12:17 | disposition home or self-care (01) ==
PROVIDERS: PCP Emergency Medicine; Visit Provider Emergency Medicine
DX: R92.8 Other abnormal and inconclusive findings on diagnostic imaging of breast (principal)
CPT/HCPCS: 76642; 77061; 77065; G0279

== ENCOUNTER 2023-06-09 17:58 | Emergency (ER) | payer OTHER, SELFPAY ==
[2023-06-09 18:13] VITALS: BP 136/68; PULSE 63; RESP 16; TEMP 37; O2SAT 100
--- NOTE | 2023-06-09 19:05 | ED.URI ---
HPI - URI/Sore Throat General Chief Complaint: Upper Respiratory Infection Stated Complaint: Sore Throat Time Seen by Provider: 06/09/23 18:52 Source: patient and RN notes reviewed Mode of arrival: ambulatory Limitations: no limitations History of Present Illness HPI Narrative: Patient presents today complaining of a sore throat since yesterday. Denies any additional symptoms. Currently rates her pain 3/10 and has tried no [id number] treatment prior to arrival. One of her daughters tested positive for strep throat today. Related Data Home Medications Medication Instructions Recorded Confirmed dextroamphetamine-amphetamine 20 20 mg PO DAILY 11/04/19 02/18/23 mg tablet hydrocodone 5 mg-acetaminophen 325 1 tablet PO DIRECTED PRN Pain 11/04/19 02/18/23 mg tablet tramadol 50 mg tablet 50 mg PO DIRECTED 11/04/19 02/18/23 zolpidem 10 mg tablet 10 mg PO HS 11/04/19 02/18/23 Allergies Allergy/AdvReac Type Severity Reaction Status Date / Time No Known Allergies Allergy Unknown Verified 06/09/23 18:41 Review of Systems Review of Systems: CONSTITUTIONAL: Denies body aches, fever, chills, or sweats. EYES: Denies visual changes, redness, or discharge. ENT: Denies rhinorrhea, congestion, or otalgia.+ sore throat CARDIOVASCULAR: Denies chest pain, palpitations, or edema. RESPIRATORY: Denies cough or dyspnea. GASTROINTESTINAL: Denies abdominal pain, nausea, vomiting, or diarrhea. GENITOURINARY: Denies dysuria or hematuria. SKIN: Denies rash, itching, or wounds. MUSCULOSKELETAL: Denies back pain, joint pain, or myalgia. NEUROLOGIC: Denies headache, numbness, tingling, or weakness. PSYCH: Denies depression or anxiety. [facility] Past Medical History Medical History Asthma Endometriosis Fibromyalgia Surgical History Surgical History H/O: hysterectomy Family History Family History Father Hypertension Family history of elevated blood lipids Family history of congestive heart failure Family history of lung cancer Family history of coronary artery disease Social History Social History Smoking status: Current every day smoker Alcohol intake: never Gender identity (if verbalized by the patient): Female Comments At time of signature, I have reviewed and agree with nursing past medical, surgical, social and family history unless otherwise noted. Please see nursing chart for further information. There is no relevant family history pertinent to the presenting complaint Exam Narrative: GENERAL: Well-appearing, well-nourished, and in no acute distress. HEAD: Normocephalic, atraumatic. EYES: EOMI. No redness or drainage. Conjunctivae normal. ENT: Mucous membranes pink and moist. Nares clear. No rhinorrhea. TMs normal bilaterally. Throat mildly erythematous without edema or exudate. Uvula midline. NECK: Normal AROM. Supple. No lymphadenopathy. CHEST: No respiratory distress. Clear to auscultation. HEART: Regular rate and rhythm. No murmur appreciated. Normal peripheral pulses. EXTREMITIES: Normal range of motion. No edema. SKIN: Warm, dry, no rash. Capillary refill normal. Normal skin turgor. NEURO: No focal deficits. Alert and oriented x3. Gait steady. PSYCH: Normal affect. No signs of depression or anxiety. Course Course Level of Care: Express Care Visit Vital Signs Vital signs: Vital Signs Temperature 98.6 F 06/09/23 18:13 Pulse Rate 63 06/09/23 18:13 Respiratory Rate 16 06/09/23 18:13 Blood Pressure 136/68 06/09/23 18:13 Pulse Oximetry 100 06/09/23 18:13 Oxygen Delivery Room Air 06/09/23 18:13 Temperature 98.6 F 06/09/23 18:13 Pulse Rate 63 06/09/23 18:13 Respiratory Rate 16 06/09/23 18:13 Blood
== END 2023-06-09 19:14 | disposition home or self-care (01) ==
PROVIDERS: Emergency Provider Nurse Practitioner; PCP Emergency Medicine
DX: J02.9 Acute pharyngitis, unspecified (principal); F17.200 Nicotine dependence, unspecified, uncomplicated; J45.909 Unspecified asthma, uncomplicated; N80.9 Endometriosis, unspecified; M79.7 Fibromyalgia
CPT/HCPCS: 87081; 87880; 99213; G0463

== ENCOUNTER 2023-11-04 11:47 | Emergency (ER) | payer OTHER, SELFPAY ==
[2023-11-04 11:58] VITALS: BP 133/77; PULSE 71; RESP 16; TEMP 37.4; O2SAT 99
--- NOTE | 2023-11-04 12:09 | ED.GENADULT ---
HPI - General Adult General Chief complaint: Back Pain/Injury Stated complaint: right lower back pain Time Seen by Provider: 11/04/23 12:09 Source: patient, RN notes reviewed and old records reviewed Mode of arrival: ambulatory Limitations: no limitations History of Present Illness HPI narrative: 47-year-old female presents to the [facility] with right lower back pain. Patient states that it started this morning. Also reports some urgency and frequency with urination. Denies burning. Denies abdominal pain. No nausea or vomiting. States that she takes had Vicodin on a regular basis Onset (ago): hour(s) Treatments prior to arrival: none Related Data Home Medications Medication Instructions Recorded Confirmed dextroamphetamine-amphetamine 20 20 mg PO DAILY 11/04/19 11/04/23 mg tablet hydrocodone 5 mg-acetaminophen 325 1 tablet PO DIRECTED PRN Pain 11/04/19 11/04/23 mg tablet tramadol 50 mg tablet 50 mg PO DIRECTED 11/04/19 11/04/23 zolpidem 10 mg tablet 10 mg PO HS 11/04/19 11/04/23 valacyclovir 500 mg tablet See Rx Instructions .Route .COMPLEX 11/04/23 11/04/23 Allergies Allergy/AdvReac Type Severity Reaction Status Date / Time No Known Allergies Allergy Unknown Verified 11/04/23 12:01 Review of Systems Review of Systems: All systems reviewed & are unremarkable except as noted in HPI and below Constitutional: Constitutional: Reports no additional constitutional complaints Eyes: Eyes: Reports no additional eye complaints ENT: Reports system reviewed and no additional complaints, except as documented Cardiovascular: Cardiovascular: Reports no additional cardiovascular complaints, Denies chest pain and Denies dyspnea Respiratory: Respiratory: Reports no additional respiratory complaints, Denies chest congestion, Denies cough and Denies dyspnea Gastrointestinal: Gastrointestinal: Reports no additional gastrointestinal complaints, Denies abdominal pain, Denies nausea and Denies vomiting Genitourinary: Genitourinary: Reports as per HPI Musculoskeletal: Musculoskeletal: Reports as per HPI and Reports back pain Integumentary/Breasts: Skin/Breast: Reports system reviewed and no additional complaints, except as docu Neurologic: Reports system reviewed and no additional complaints, except as documented Psychiatric: Psychiatric: Reports no additional psychiatric complaints Allergic/Immunologic: Allergic/Immunologic: Reports no additional allergic/immunologic complaints PMFSH Past Medical History Medical History Asthma Endometriosis Fibromyalgia Surgical History Surgical History H/O: hysterectomy Family History Family History Father Hypertension Family history of elevated blood lipids Family history of congestive heart failure Family history of lung cancer Family history of coronary artery disease Social History Social History Smoking status: Current every day smoker Alcohol intake: never Gender identity (if verbalized by the patient): Female Comments At the time of my signature, I reviewed and agree with the nursing past medical, surgical, social, and family history. There is no relevant family history pertinent to the patient complaint. Exam Const: General: cooperative, healthy appearing, comfortable, no acute distress, well developed, alert and well nourished Nutritional Appearance: well nourished Orientation/consciousness: patient oriented x3 Limitations: no limitations HENMT: Head: normal to inspection Ears: hearing grossly normal bilaterally and external ears normal Face/Nose/Sinus: Normal external nose present, Normal nares present, Normal nasal mucous membranes and turbinates present, normal facial exam and face symmetric Face and sinus: normal facial e
== END 2023-11-04 12:57 | disposition home or self-care (01) ==
PROVIDERS: Emergency Provider Nurse Practitioner; PCP Emergency Medicine
DX: N39.0 Urinary tract infection, site not specified (principal); J45.909 Unspecified asthma, uncomplicated; M79.7 Fibromyalgia; N80.9 Endometriosis, unspecified; F17.200 Nicotine dependence, unspecified, uncomplicated
CPT/HCPCS: 81003; 87086; 99213; G0463

== ENCOUNTER 2024-01-31 10:08 | Outpatient (CLI) | payer OTHER, SELFPAY ==
--- NOTE | ~2024-01-31 | MMUS_ITS ---
EXAMINATION: MM diagnostic omari BI w nena, US breast BI complete HISTORY: Six-month follow-up of probable benign mammographic asymmetry of left breast TECHNIQUE: ML, MLO and CC 3-D tomosynthesis images of both breasts were performed and synthetic 2-D i mages were generated. CAD analysis was submitted and interpreted. High resolution bilateral complete breast ultrasound examination including all 4 quadrants and subareolar area of each breast was perfor med. COMPARISON: 05/03/2023 diagnostic left mammogram and limited left breast ultrasound examination 02/22/2023, 11/04/2019 bilateral screening mammogram examinations BREAST PARENCHYMAL COMPOSITION: The breasts are heterogeneously dense, which may obscure small masses . FINDINGS: MAMMOGRAPHIC FINDINGS: There is a low-density circumscribed approximately 7 mm mass in the upper outer left breast at mid de pth (MLO Tomosynthesis image /, ML Tomosynthesis image ). No suspicious mass or architectural distortion, malignant calcification, skin thickening or retractio n or significant new or developing density is detected. ULTRASOUND: No suspicious mass or suspicious shadowing of either breast is detected. 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 Bilateral benign cysts; no evidence of malignancy 2. Routine annual mammographic screening is recommended BI-RADS Category 2: Benign finding(s). Reviewed, dictated and finalized at location A. IMPRESSION: 1. Bilateral benign cysts; no evidence of malignancy 2. Routine annual mammographic screening is recommended BI-RADS Category 2: Benign finding(s).
== END 2024-01-31 10:09 | disposition home or self-care (01) ==
LOC: ANHIMG 11:47
PROVIDERS: PCP Emergency Medicine; Visit Provider Emergency Medicine
DX: R92.2 Inconclusive mammogram (principal); N63.20 Unspecified lump in the left breast, unspecified quadrant
CPT/HCPCS: 76641; 77061; 77062; 77065; 77066; G0279

== ENCOUNTER 2024-07-16 10:34 | Emergency (ER) | payer OTHER, SELFPAY ==
[2024-07-16 10:50] VITALS: BP 117/69; PULSE 62; RESP 16; TEMP 36.3; O2SAT 100
--- NOTE | 2024-07-16 11:06 | ED.URI ---
HPI - URI/Sore Throat General Chief Complaint: Upper Respiratory Infection Stated Complaint: Sore Throat Time Seen by Provider: 07/16/24 10:35 Source: patient Mode of arrival: ambulatory Limitations: no limitations History of Present Illness HPI Narrative: Patient is a 48-year-old female who presents with congestion and sore throat started yesterday. Denies any fever, chills, nausea vomiting, diarrhea, abdominal pain, ear pain, cough. Has not taken anything for her symptoms Related Data Home Medications Medication Instructions Recorded Confirmed dextroamphetamine-amphetamine 20 20 mg PO DAILY 11/04/19 07/16/24 mg tablet hydrocodone 5 mg-acetaminophen 325 1 tablet PO DIRECTED PRN Pain 11/04/19 07/16/24 mg tablet tramadol 50 mg tablet 50 mg PO DIRECTED 11/04/19 07/16/24 zolpidem 10 mg tablet 10 mg PO HS 11/04/19 07/16/24 valacyclovir 500 mg tablet 500 mg PO DAILY 11/04/23 07/16/24 Allergies Allergy/AdvReac Type Severity Reaction Status Date / Time No Known Allergies Allergy Unknown Verified 07/16/24 10:54 Review of Systems Review of Systems: All systems reviewed & are unremarkable except as noted in HPI and below Constitutional: Constitutional: Denies body ache(s), Denies chills, Denies fatigue, Denies fever(s), Denies headache(s), Denies malaise and Denies weakness Eyes: Eyes: Denies blurry vision, Denies itchy eyes and Denies loss of vision ENT: Denies otalgia, Denies headache(s), Reports nasal congestion, Denies sinus pain and Reports sore throat Cardiovascular: Cardiovascular: Denies chest pain, Denies irregular heart rhythm and Denies dyspnea Respiratory: Respiratory: Denies cough and Denies dyspnea Gastrointestinal: Gastrointestinal: Denies abdominal pain, Denies diarrhea, Denies nausea and Denies vomiting Musculoskeletal: Musculoskeletal: Denies back pain, Denies myalgias and Denies arthralgias Integumentary/Breasts: Skin/Breast: Denies pruritus and Denies rash Neurologic: Denies headache(s), Denies loss of vision and Denies weakness Psychiatric: Psychiatric: Reports no additional psychiatric complaints Endocrine: Endocrine: Denies fatigue Allergic/Immunologic: Allergic/Immunologic: Denies itchy eyes PMFSH Past Medical History Medical History Asthma Endometriosis Fibromyalgia Surgical History Surgical History H/O: hysterectomy Family History Family History Father Hypertension Family history of elevated blood lipids Family history of congestive heart failure Family history of lung cancer Family history of coronary artery disease Social History Social History Smoking status: Current every day smoker Alcohol intake: never Gender identity (if verbalized by the patient): Female Comments At time of signature, agree with nursing past medical, surgical, social and family history. There is no relevant family history pertinent to the presenting complaint. Exam Const: General: cooperative, healthy appearing, comfortable, no acute distress and well nourished Nutritional Appearance: well nourished Orientation/consciousness: patient oriented x3 Limitations: no limitations HENMT: Head: normal to inspection, normocephalic and atraumatic Ears: hearing grossly normal bilaterally, external ears normal, TM's normal bilaterally, EAC's normal and no periauricular adenopathy Face/Nose/Sinus: Normal external nose present, Abnormal mucous membranes and turbinates present erythematous bilateral and diffuse, normal facial exam, sinuses nontender and face symmetric Face and sinus: normal facial exam, sinuses nontender and face symmetric Mouth: Yes Normal oral and palatal mucosa present, Yes lip normal, Yes tongue normal, Yes Normal salivary glands and ducts present, Yes
== END 2024-07-16 11:45 | disposition home or self-care (01) ==
PROVIDERS: Emergency Provider Nurse Practitioner Family; PCP Emergency Medicine
DX: J06.9 Acute upper respiratory infection, unspecified (principal); F17.200 Nicotine dependence, unspecified, uncomplicated; J45.909 Unspecified asthma, uncomplicated; N80.9 Endometriosis, unspecified; M79.7 Fibromyalgia
CPT/HCPCS: 99211; G0463

== ENCOUNTER 2024-09-19 13:02 | Emergency (ER) | payer OTHER, SELFPAY ==
[2024-09-19 13:16] VITALS: BP 131/74; PULSE 77; RESP 18; TEMP 36.6; O2SAT 100
--- NOTE | 2024-09-19 13:26 | ED.URI ---
HPI - URI/Sore Throat General Chief Complaint: Upper Respiratory Infection Stated Complaint: Fever/Sore Throat Source: patient, family, RN notes reviewed and old records reviewed Mode of arrival: ambulatory Limitations: no limitations History of Present Illness HPI Narrative: Patient presents accompanied by her daughter. She is complaining of sore throat for 1 day. She is unsure of fever status. She has been taking [id number] medications for her symptoms with poor relief. She is concerned that she has strep throat, reports that her mother lives with her and her daughter, and she was recently diagnosed with strep. No drooling or stridor, able to manage own secretions. Not in any distress at this time Related Data Home Medications ?Medication ?Instructions ?Recorded ?Confirmed ?Last Taken ?Type dextroamphetamine-amphetamine 20 20 mg PO DAILY 11/04/19 07/16/24 Unknown History mg tablet hydrocodone 5 mg-acetaminophen 325 1 tablet PO DIRECTED PRN Pain 11/04/19 07/16/24 Unknown History mg tablet tramadol 50 mg tablet 50 mg PO DIRECTED 11/04/19 07/16/24 Unknown History zolpidem 10 mg tablet 10 mg PO HS 11/04/19 07/16/24 Unknown History valacyclovir 500 mg tablet 500 mg PO DAILY 11/04/23 07/16/24 Unknown History Allergies Allergy/AdvReac Type Severity Reaction Status Date / Time No Known Allergies Allergy Unknown Verified 07/16/24 10:54 Review of Systems Review of Systems: All systems reviewed & are unremarkable except as noted in HPI and below Constitutional: Constitutional: Reports no additional constitutional complaints ENT: Reports system reviewed and no additional complaints, except as documented, Reports as per HPI and Reports sore throat Cardiovascular: Cardiovascular: Reports no additional cardiovascular complaints Respiratory: Respiratory: Reports no additional respiratory complaints Gastrointestinal: Gastrointestinal: Reports no additional gastrointestinal complaints [facility] Past Medical History Medical History Asthma Endometriosis Fibromyalgia Surgical History Surgical History H/O: hysterectomy Family History Family History Father Hypertension Family history of elevated blood lipids Family history of congestive heart failure Family history of lung cancer Family history of coronary artery disease Social History Social History Smoking status: Current every day smoker Alcohol intake: never Gender identity (if verbalized by the patient): Female Comments At the time of my signature, I reviewed and agree with the nursing past medical, surgical, social, and family history. There is no relevant family history pertinent to the patient complaint. Exam Const: General: cooperative, no acute distress, alert and awake Orientation/consciousness: oriented to person, oriented to place and oriented to time HENMT: Head: normal to inspection Mouth: Yes moist mucous membranes Throat: posterior oropharynx abnormal erythema Resp: Effort & Inspection: normal respiratory effort and able to speak in complete sentences Auscultation: clear to auscultation bilaterally, no crackles, no rales, no rhonchi and no wheezes Cardio: Palpation: normal PMI Rate: regular rate Rhythm: regular rhythm Heart sounds: S1 normal heart sound present and S2 normal heart sound present Neuro: General: oriented to person, oriented to place and oriented to time Cranial nerves: Yes CN's II-XII intact bilaterally Psych: Appearance: grossly normal Thought process: Normal thought process present Insight: Good insight present (Psych) Judgement: Good judgement present (Psych) Course Course Level of Care: Express Care Visit Vital Signs Vital signs: Vital Signs Temperature 97.9 F 09/19/24 13:16 Pulse Rate 77 09/19/24 13:16 Respiratory Rate 18 09/19/24 13:16 Blood Pressure 131/74 09/19/24 13:16 Pulse Oximetry 100 09/19/24 13:16 Oxygen Delivery Room Air 09/19/24 13:16 Temperature 97.9 F 09/19/24 13:16 Pulse Rate 77 09/19/24 13:16 Respiratory Rate 18 09/19/24 13:16 Blood Pressure 131/74 09/19/24 13:16 Pulse Oximetry 100 09/19/24 13:16 Oxygen Delivery Room Air 09/19/24 13:16 Reviewed MDM - URI/Sore Throat MDM Narrative Medical decision making narrative: Negative strep, culture pending. Patient nontoxic appearing. Stable for discharge home with supportive care measures. Some parts of this dictation were generated by voice recognition software and may contain typographical and/or grammatical inaccuracies. Discharge instructions reviewed with patient, as well as provided in writing per nursing staff. The instructions also include specific and strict return/GO TO THE ER as well as f/u information. All questions have been answered, and the patient deny any further questions with discharge and discharge plan. Differential Diagnosis Differential diagnosis: Likely upper respiratory infection, otitis media, sinusitis, influenza and pharyngitis Medical Records Attestation: I reviewed the patient's medical records. Lab Data Attestation: I reviewed the patient's lab results. Discharge Plan Discharge Clinical Impression: Viral infection Patient Disposition: Home, Self-Care Condition: Stable Instructions: Antibiotic Form, Cold Symptoms (ED) Additional Instructions: Tylenol and/or ibuprofen per package instructions as needed for fever or pain. Emergency department for new or worse symptoms. Follow with primary care provider. Patient Language: Kazakh Prescriptions: No Action hydrocodone-acetaminophen 5-325 mg tablet 1 tablet PO DIRECTED PRN (Reason: Pain) tramadol 50 mg tablet 50 mg PO DIRECTED dextroamphetamine-amphetamine 20 mg tablet 20 mg PO DAILY zolpidem 10 mg tablet 10 mg PO HS valacyclovir 500 mg tablet 500 mg PO DAILY nitrofurantoin monohyd/m-cryst [Macrobid] 100 mg capsule 100 mg PO Q12H 5 Days Qty: 10 0RF Rx Instructions: must administer with a meal/food Follow-up/Referrals: Pierre Ramon MD [Primary Care Provider] - 2 Weeks Stand Alone Forms: Work/School Release IP Time of Disposition: 13:38
[2024-09-19 13:32] LABS: EDSTREPNEGPOS1 Negative (Negative)
== END 2024-09-19 13:47 | disposition home or self-care (01) ==
PROVIDERS: Emergency Provider Nurse Practitioner Family; PCP Emergency Medicine
DX: B34.9 Viral infection, unspecified (principal); F17.200 Nicotine dependence, unspecified, uncomplicated; J45.909 Unspecified asthma, uncomplicated; N80.9 Endometriosis, unspecified; M79.7 Fibromyalgia
CPT/HCPCS: 87070; 87880; 99213; G0463

== ENCOUNTER 2024-10-29 08:52 | Emergency (ER) | payer OTHER, SELFPAY ==
--- NOTE | ~2024-10-29 | XR_ITS ---
EXAMINATION: XR foot RT min 3V DATE: 10/29/2024 09:24 INDICATION: Right second toe pain. TECHNIQUE: 4 views of right foot were obtained. COMPARISON: None. FINDINGS: There is mild hallux valgus. No fracture. There is mild osteoarthritis of first metatarsoph alangeal joint. IMPRESSION: 1. Mild hallux valgus. 2. Mild osteoarthritis of first metatarsophalangeal joint. Reviewed, dictated and finalized at location [facility]
--- NOTE | 2024-10-29 08:54 | ED_ITS ---
HPI - Extremity Injury (Lower) General Chief Complaint: Extremity Injury, Lower Stated Complaint: right ankle injury Time Seen by Provider: 10/29/24 09:09 Source: patient, RN notes reviewed and old records reviewed Mode of arrival: ambulatory Limitations: no limitations History of Present Illness HPI Narrative: 48-year-old female presents to the [facility] with right distal foot pain and 2nd toe pain patient states that it 10 days ago she missed a step and stubbed her toe. Reports that it was bruise, swollen. Concern for fracture. Patient does take prescribed tramadol and hydrocodone Onset (ago): day(s) (8-) Treatments prior to arrival: other (Pain medication) Related Data Home Medications ?Medication ?Instructions ?Recorded ?Confirmed ?Last Taken ?Type dextroamphetamine-amphetamine 20 20 mg PO DAILY 11/04/19 10/29/24 Unknown History mg tablet hydrocodone 5 mg-acetaminophen 325 1 tablet PO DIRECTED PRN Pain 11/04/19 10/29/24 Unknown History mg tablet tramadol 50 mg tablet 50 mg PO DIRECTED 11/04/19 10/29/24 Unknown History zolpidem 10 mg tablet 10 mg PO HS 11/04/19 10/29/24 Unknown History valacyclovir 500 mg tablet 500 mg PO DAILY 11/04/23 10/29/24 Unknown History Allergies Allergy/AdvReac Type Severity Reaction Status Date / Time No Known Allergies Allergy Unknown Verified 10/29/24 08:59 Review of Systems 2 Review of Systems: All systems reviewed & are unremarkable except as noted in HPI and below Constitutional: Constitutional: Reports no additional constitutional complaints ENT: Reports system reviewed and no additional complaints, except as documented Cardiovascular: Cardiovascular: Reports no additional cardiovascular complaints, Denies chest pain and Denies dyspnea Respiratory: Respiratory: Reports no additional respiratory complaints, Denies chest congestion, Denies cough and Denies dyspnea Musculoskeletal: Musculoskeletal: Reports as per HPI Integumentary/Breasts: Skin/Breast: Reports system reviewed and no additional complaints, except as docu PMFSH Past Medical History Medical History Fibromyalgia Endometriosis Asthma Surgical History Surgical History H/O: hysterectomy Family History Family History Father Hypertension Family history of elevated blood lipids Family history of congestive heart failure Family history of lung cancer Family history of coronary artery disease Social History Social History Smoking status: Current every day smoker Alcohol intake: never Gender identity (if verbalized by the patient): Female Comments At the time of my signature, I reviewed and agree with the nursing past medical, surgical, social, and family history. There is no relevant family history pertinent to the patient complaint. Exam 2 Const: General: cooperative, healthy appearing, comfortable, no acute distress, well developed, alert and well nourished Nutritional Appearance: w ell nourished Orientation/consciousness: patient oriented x3 Limitations: no limitations HENMT: Head: normal to inspection Eyes: General: appearance normal, both eyes and all related structures A lignment and Position: alignment normal Neck: Neck: normal visual inspection, full ROM, no lymphadenopathy and no meningeal signs Chest: Chest palpation & inspection: normal inspection of the chest Resp: Effort & Inspection: normal respiratory effort and able to speak in complete sentences Cardio: Rate: regular rate Skin: General skin exam: normal color and no rashes or lesions noted Neuro: General: patient oriented x3, gait normal, moves all extremities and no meningeal signs Cognition (Neuro): normal cognition Speech: normal speech Gait exam (Neuro): Normal gait present Extrem: General: normal to inspection, full ROM, capillary refill normal and normal gait Right lower extremity: foot Details: tenderness (2nd toe. plantar aspect, 2nd metatarsal distal), toes with normal ROM, no edema and vascular exam Details: dorsalis pedis pulse present and normal capillary refill; no abrasion, no laceration, no ecchymosis, no crepitus, no foreign bodies and no puncture wound Ankle/foot/toe images: 1. Tenderness to palpation, no erythema, ecchymosis or swelling is noted. Psych: Appearance: grossly normal and well kempt Mental Status: mental status grossly normal Speech and movement: Normal speech and movement present and Clear speech present Affect: normal affect Attitude: cooperative Course Course Level of Care: Express Care Visit Vital Signs Vital signs: Vital Signs Temperature 97.6 F 10/29/24 09:00 Pulse Rate 56 L 10/29/24 09:00 Respiratory Rate 16 10/29/24 09:00 Blood Pressure 110/58 L 10/29/24 09:00 Pulse Oximetry 100 10/29/24 09:00 Oxygen Delivery Room Air 10/29/24 09:00 Temperature 97.6 F 10/29/24 09:00 Pulse Rate 56 L 10/29/24 09:00 Respiratory Rate 16 10/29/24 09:00 Blood Pressure 110/58 L 10/29/24 09:00 Pulse Oximetry 100 10/29/24 09:00 Oxygen Delivery Room Air 10/29/24 09:00 Reviewed MDM - Extremity Injury (Lower) MDM Narrative Medical decision making narrative: Patient sitting comfortably in exam room. Nontoxic, vitals stable. Patient is in no acute distress. Patient presents with 810 days discomfort to the right 2nd toe, distal metatarsal. X-ray negative Patient appropriate for outpatient treatment with follow-up Discharge instructions reviewed with patient, as well as provided in writing per nursing staff. The instructions also include specific and strict return/GO TO THE ER as well as f/u information. All questions have been answered, and the patient deny any further questions with discharge and discharge plan. Some parts of this dictation were generated by voice recognition software and may contain typographical and/or grammatical inaccuracies. Differential Diagnosis Differential diagnosis: Likely other (Foot fracture, foot contusion, foot strain) Imaging Data Radiologist's impression: EXAMINATION: XR foot RT min 3V DATE: 10/29/2024 09:24 INDICATION: Right second toe pain. TECHNIQUE: 4 views of right foot were obtained. COMPARISON: None. FINDINGS: There is mild hallux valgus. No fracture. There is mild osteoarthritis of first metatarsophalangeal joint. IMPRESSION: 1. Mild hallux valgus. 2. Mild osteoarthritis of first metatarsophalangeal joint. Critical Care Time Critical Care Time Critical Care Time: No Discharge Plan Discharge Clinical Impression: Pain in toe of right foot, Acute pain of right foot Patient Disposition: Home, Self-Care Condition: Stable Instructions: Antibiotic Form, Arthralgia (ED) Additional Instructions: Your Xray did not show a fracture. Wear good supportive shoes at all times. Ice should be applied to help reduce swelling. It can be used for 20 to 30 minutes, every 2-3 hours while awake. Do not apply ice directly to your skin. You can alternate ibuprofen 600mg and Tylenol 500mg every 4 hours as needed for pain. Please schedule a follow-up visit with your personal physician for further evaluation and treatment within 2 weeks especially if symptoms persist. For new or worsening symptoms go directly to the emergency room Patient Language: Kyrgyz Prescriptions: No Action hydrocodone-acetaminophen 5-325 mg tablet 1 tablet PO DIRECTED PRN (Reason: Pain) tramadol 50 mg tablet 50 mg PO DIRECTED dextroamphetamine-amphetamine 20 mg tablet 20 mg PO DAILY zolpidem 10 mg tablet 10 mg PO HS valacyclovir 500 mg tablet 500 mg PO DAILY Follow-up/Referrals: George Mcghee Jr., DPM [Physician] - 1 Week (right foot pain) Pierre Ramon MD [Primary Care Provider] - 2 Weeks (express care follow up right foot pain) Time of Disposition: 09:34
[2024-10-29 09:00] VITALS: BP 110/58; PULSE 56; RESP 16; TEMP 36.4; O2SAT 100
== END 2024-10-29 09:41 | disposition home or self-care (01) ==
PROVIDERS: Emergency Provider Nurse Practitioner; PCP Emergency Medicine
DX: M79.674 Pain in right toe(s) (principal); M79.671 Pain in right foot; F17.200 Nicotine dependence, unspecified, uncomplicated; M79.7 Fibromyalgia; N80.9 Endometriosis, unspecified; J45.909 Unspecified asthma, uncomplicated
CPT/HCPCS: 73630; 99213; G0463

== ENCOUNTER 2024-11-08 02:14 | Day surgery (SDC) | payer OTHER, SELFPAY ==
[2024-10-31 12:45] VITALS: BMI 25.4
--- OUTSIDE RECORDS SUMMARY | 2024-11-08 02:18 | XMS_ITS | Clinical Summary ---
Author Organization [facility] Address [address] [place] [address]. [place], [place] [id number] [place] [id number] Care Team Providers Care Replenishment Analyst Name Role Phone Unavailable Primary Care Provider Unavailabl e Social History Tobacco Use Types Packs/Day Years Used Date Smoking Tobacco: Never Assessed Comments Unknown Sex and Gender Information Value Date Recorded Sex Assigned at Not on file Legal Sex Female 8:00 PM CDT Gender Identity Not on file Sexual Orientation Not on file Plan of Treatment Health Maintenance Due Date Last Done Comments Cervical Cancer Screening Pa p Smear (Age 30 to 64) Every 3 Years 1976 Colorectal Cancer Screening Colonoscopy (10 Years) 1976 Annual Physical 12/30/1979 Hepatitis C 1994 DTaP, Tdap and Td Vaccines ( 1 - Tdap) 12/30/1995 Hepatitis B Vaccines (1 of 3 - 19+ 3-dose series) 12/30/1995 Cervical Cancer Screening Pa p with HPV Testing (Age 30 to 64) Every 5 Years 2006 Cervical Cancer Screening with HPV 2006 Mammogram Screening 2016 COVID-19 Vaccine (2023-2 5 season) 2024 Influenza Adult (#1) 2024 Meningococcal B Vaccine Aged Out No l onger eligible based on patient's age to complete this topic Meningococcal Vaccine Aged Out No josep steven eligible based on patient's age to complete this topic Pneumococcal Vaccine: Pediat rics (0 to 5 Years) and At-Risk Patients (6 to 64 Years) Aged Out No longer eligible b ased on patient's age to complete this topic RSV Immunizations Under 20 Months Aged Out No longer eligible based on patient's age to complete this topic
--- OUTSIDE RECORDS SUMMARY | 2024-11-08 02:18 | XMS_ITS | Continuity of Care Document ---
Author Organization [facility] Address [address] [place] [address] Phone Care Team Providers Care Demo Specialist Name Role Phone Pierre Ramon MD Unavailable Unavailable Allergies, Adverse Reactions, Alerts Substance Reaction Status Criticality No Known Allergies Active No Inform ation Medications Medication Instructions Dosage Effective Dates (start - stop) Status Comments Ambien 10 mg tablet take 1 tablet by oral route every day at bedtime as needed 10 MG - Active avoid driving or operate machines, PRN for insomnia tramadol 50 mg tablet take 1 tablet by oral route every 6 hours as needed as needed 50 MG - Active PRN for pain, avoid driving or operate machines hydrocodone 5 mg-acetaminophen 325 mg tablet take 1 tablet by oral route every 6 hours as needed for pain as needed 1.00 tablet - Active PRN for pain, avoid driving or operate machines Adderall 20 mg tablet take 1 tablet by oral route 2 times every day before breakfast and at noon 20 MG - Active ibuprofen 800 mg tablet take 1 tablet by oral route every 6 - 8 hours with food as needed 800 MG - Active PRN for pain clobetasol 0.05 % shampoo apply by topical route every day a thin layer to dry scalp Leave in place 15 min. then lather and rinse. 0.00 - Active Procedures Procedure Date OFFICE/OUTPATIENT VISIT, EST OFFICE/OUTPATIENT VISIT, EST OFFICE/OUTPATIENT VISIT, EST OFFICE/OUTPATIENT VISIT, EST OFFICE/OUTPATIENT VISIT, EST OFFICE/OUTPATIENT VISIT, EST OFFICE/OUTPATIENT VISIT, EST OFFICE/OUTPATIENT VISIT, EST PREV VISIT, EST, AGE 40-64 February- OFFICE/OUTPATIENT VISIT, EST OFFICE/OUTPATIENT VISIT, EST OFFICE/OUTPATIENT VISIT, EST OFFICE/OUTPATIENT VISIT, EST OFFICE/OUTPATIENT VISIT, EST OFFICE/OUTPATIENT VISIT, EST OFFICE/OUTPATIENT VISIT, EST OFFICE/OUTPATIENT VISIT, EST OFFICE/OUTPATIENT VISIT, EST OFFICE/OUTPATIENT VISIT, EST OFFICE/OUTPATIENT VISIT, EST OFFICE/OUTPATIENT VISIT, EST OFFICE/OUTPATIENT VISIT, EST OFFICE/OUTPATIENT VISIT, EST OFFICE/OUTPATIENT VISIT, EST PREV VISIT, EST, AGE 40-64 Oct- OFFICE/OUTPATIENT VISIT, EST OFFICE/OUTPATIENT VISIT, EST OFFICE/OUTPATIENT VISIT, EST OFFICE/OUTPATIENT VISIT, EST OFFICE/OUTPATIENT VISIT, EST OFFICE/OUTPATIENT VISIT, EST OFFICE/OUTPATIENT VISIT, EST OFFICE/OUTPATIENT VISIT, EST OFFICE/OUTPATIENT VISIT, EST OFFICE/OUTPATIENT VISIT, EST OFFICE/OUTPATIENT VISIT, EST OFFICE/OUTPATIENT VISIT, EST PREV VISIT, EST, AGE 40-64 OFFICE/OUTPATIENT VISIT, EST OFFICE/OUTPATIENT VISIT, EST OFFICE/OUTPATIENT VISIT, EST OFFICE/OUTPATIENT VISIT, EST OFFICE/OUTPATIENT VISIT, EST OFFICE/OUTPATIENT VISIT, EST OFFICE/OUTPATIENT VISIT, EST OFFICE/OUTPATIENT VISIT, EST OFFICE/OUTPATIENT VISIT, EST OFFICE/OUTPATIENT VISIT, EST OFFICE/OUTPATIENT VISIT, EST OFFICE/OUTPATIENT VISIT, EST OFFICE/OUTPATIENT VISIT, EST OFFICE/OUTPATIENT VISIT, EST OFFICE/OUTPATIENT VISIT, EST OFFICE/OUTPATIENT VISIT, EST OFFICE/OUTPATIENT VISIT, EST OFFICE/OUTPATIENT VISIT, EST OFFICE/OUTPATIENT VISIT, EST PREV VISIT, EST, AGE 40-64 OFFICE/OUTPATIENT VISIT, EST OFFICE/OUTPATIENT VISIT, EST OFFICE/OUTPATIENT VISIT, EST OFFICE/OUTPATIENT VISIT, EST OFFICE/OUTPATIENT VISIT, EST OFFICE/OUTPATIENT VISIT, EST OFFICE/OUTPATIENT VISIT, EST OFFICE/OUTPATIENT VISIT, EST OFFICE/OUTPATIENT VISIT, EST OFFICE/OUTPATIENT VISIT, EST OFFICE/OUTPATIENT VISIT, EST PREV VISIT, EST, AGE 40-64 OFFICE/OUTPATIENT VISIT, EST OFFICE/OUTPATIENT VISIT, EST OFFICE/OUTPATIENT VISIT, EST OFFICE/OUTPATIENT VISIT, EST OFFICE/OUTPATIENT VISIT, EST OFFICE/OUTPATIENT VISIT, EST OFFICE/OUTPATIENT VISIT, EST OFFICE/OUTPATIENT VISIT, EST OFFICE/OUTPATIENT VISIT, EST OFFICE/OUTPATIENT VISIT, EST OFFICE/OUTPATIENT VISIT, EST PREV VISIT, EST, AGE 40-64 OFFICE/OUTPATIENT VISIT, EST OFFICE/OUTPATIENT VISIT, EST OFFICE/OUTPATIENT VISIT, EST OFFICE/OUTPATIENT VISIT, EST OFFICE/OUTPATIENT VISIT, EST PREV VISIT, EST, AGE 40-64 OFFICE/OUTPATIENT VISIT, EST OFFICE/OUTPATIENT VISIT, EST OFFICE/OUTPATIENT VISIT, EST OFFICE/OUTPATIENT VISIT, EST OFFICE/OUTPATIENT VISIT, EST OFFICE/OUTPATIENT VISIT, EST OFFICE/OUTPATIENT VISIT, EST OFFICE/OUTPATIENT VISIT, EST OFFICE/OUTPATIENT VISIT, EST PREV VISIT, EST, AGE 18-39 OFFICE/OUTPATIENT VISIT, EST OFFICE/OUTPATIENT VISIT, EST OFFICE/OUTPATIENT VISIT, EST OFFICE/OUTPATIENT VISIT, EST OFFICE/OUTPATIENT VISIT, EST OFFICE/OUTPATIENT VISIT, EST OFFICE/OUTPATIENT VISIT, EST OFFICE/OUTPATIENT VISIT, EST OFFICE/OUTPATIENT VISIT, EST OFFICE/OUTPATIENT VISIT, EST OFFICE/OUTPATIENT VISIT, EST OFFICE/OUTPATIENT VISIT, EST OFFICE/OUTPATIENT VISIT, EST PREV VISIT, NEW, AGE 18-39 Advance Directives Directive Yes / No Effective Date File Name No Information Encounters Encounter Description Practice Location Reason(s) For Visit Diagnoses Date Provider Providers Copied on Encounter OFFICE/OUTPA TIENT VISIT, [facility], [address], [place], [place], [address], tel:[phone] [facility] ADD (chief complaint)fib royalgia1 (chief complaint)ins omnia1 (chief complaint) Attention deficitFibromyal giaPrimary insomnia 5 Tristen Rosas [address] [place], [address] , [place]. tel:[phone] OFFICE/OUTPA TIENT VISIT, [facility], [address], [place], [place], [address], [place] tel:[phone] [facility] ADD (chief complaint)kary n (chief complaint) FibromyalgiaAtte ntion deficit 4 Ramon Pierre. [address], [place], [place], [address] , [place]. tel:[phone] OFFICE/OUTPA TIENT VISIT, [facility], [address], [place], [place], [address], [place] tel:[phone] [facility] ADD (chief complaint)kary n (chief complaint)col on (chief complaint) Attention deficitFibromyal giaEncounter for screening for malignant neoplasm of colon 4 Ramon Pierre. [address], [place], [place], [address] , [place]. tel:[phone] OFFICE/OUTPA TIENT VISIT, [facility], [address], [place], [place], [address], [place] tel:[phone] [facility] ADD (chief complaint)kary n (chief complaint)sin us1 (chief complaint)ins omnia1 (chief complaint) Attention deficitFibromyal giaPrimary insomniaAcute sinusitis 4 Ramon Pierre. [address], [place], [place], [address] , [place]. tel:[phone] OFFICE/OUTPA TIENT VISIT, [facility], [address], [place], [place], [address], [place] tel:[phone] [facility] ADD (chief complaint)kary n1 (chief complaint) Attention deficitFibromyal delisa 4 Tristen Jay. [address], [place], [place], [address] , [place]. tel:[phone] OFFICE/OUTPA TIENT VISIT, [facility], [address], [place], [place], [address], [place] tel:[phone] [facility] ADD (chief complaint)kary n (chief complaint) Attention deficitFibromyal delisa 4 Ramon Pierre. [address], [place], [place], [address] , [place]. tel:[phone] OFFICE/OUTPA TIENT VISIT, EST [facility], [address], [place], [place], [address], [place] tel:[phone] [facility] Medicine ADD (chief complaint)kary n (chief complaint)ins omnia1 (chief complaint)vag inal itching1 (chief complaint) Attention deficitFibromyal giaPrimary insomniaAcute candidal vulvovaginitis 4 Tristen Jay. [address], [place], [place], [address] , [place]. tel:[phone] OFFICE/OUTPA TIENT VISIT, EST [facility], [address], [place], [place], [address], [place] tel:[phone] [facility] ADD (chief complaint)fib romyalgia1 (chief complaint)con stipation1 (chief complaint)ins omnia1 (chief complaint) FibromyalgiaAtte ntion deficitIrritable bowel syndrome with constipationPrim mary insomnia 4 Tristen Rosas [address], [place], [place], [address] , [place]. tel:[phone] PREV VISIT, EST, AGE 40-64 [facility], [address], [place], [place], [address], [place] tel:[phone] [facility] ADD (chief complaint)fib romyalgia1 (chief complaint)Gino orrheic1 (chief complaint)ins omnia1 (chief complaint) Encounter for general adult medical examination without abnormal findings 4 Tristen Rosas [address], [place], [place], [address] , [place]. tel:[phone] OFFICE/OUTPA TIENT VISIT, EST [facility], [address], [place], [place], [address], [place] tel:[phone] [facility] ADD (chief complaint)fib romyalgia1 (chief complaint)sca lp1 (chief complaint) Seborrheic dermatitisFibrom yalgiaAttention deficitLump in the left breast 4 Tristen Jay. [address], [place], [place], [address] , [place]. tel:[phone] OFFICE/OUTPA TIENT VISIT, [facility], [address], [place], [place], [address], [place] tel:[phone] [facility] ADD (chief complaint)fib romyalgia1 (chief complaint)sca lp1 (chief complaint) Attention deficitFibromyal giaInconclusive mammogramSeborrh eic dermatitis 4 Tristen Jay. [address], [place], [place], [address] , [place]. tel:[phone] OFFICE/OUTPA TIENT VISIT, [facility], [address], [place], [place], [address], [place] tel:[phone] [facility] ADD (chief complaint)fib romyalgia1 (chief complaint)omari mo (chief complaint) FibromyalgiaAtte ntion deficitInconclus mari mammogram 4 Tristen Jay. [address], [place], [place], [address] , [place]. tel:[phone] OFFICE/OUTPA TIENT VISIT, [facility], [address], [place], [place], [address], [place] tel:[phone] [facility] ADD (chief complaint)kary n (chief complaint) FibromyalgiaAtte ntion deficit 4 Tristen Jay. [address], [place], [place], [address] , [place]. tel:[phone] OFFICE/OUTPA TIENT VISIT, [facility], [address] [place], [address], [place] tel:[phone] [facility] ADD (chief complaint)kary n (chief complaint)emp hysema1 (chief complaint) Attention deficitFibromyal giaCentrilobular emphysema 3 Tristen Jay. [address], [place], [place], [address] , [place]. tel:[phone] OFFICE/OUTPA TIENT VISIT, [facility], [address], [place], [place], [address], [place] tel:[phone] [facility] ADD (chief complaint)fib romyalgia1 (chief complaint) Attention deficitFibromyal delisa 3 Tristen Jay. [address], [place], [place], [address] , [place]. tel:[phone] OFFICE/OUTPA TIENT VISIT, [facility], [address], [place], [place], [address], [place] tel:[phone] [facility] ADD (chief complaint)kary n (chief complaint)ins omnia1 (chief complaint)IBS 1 (chief complaint) Attention deficitFibromyal giaPrimary insomniaIrritabl e bowel syndrome with constipation 3 Tristen Jay. [address], [place], [place], [address] , [place]. tel:[phone] OFFICE/OUTPA TIENT VISIT, [facility], [address], [place], [place], [address], [place] tel:[phone] [facility] ADD (chief complaint)kary n (chief complaint) Attention deficitFibromyal delisa 3 Tristen Jay. [address], [place], [place], [address] , [place]. tel:[phone] OFFICE/OUTPA TIENT VISIT, [facility], [address], [place], [place], [address], [place] tel:[phone] [facility] ADD (chief complaint)kary n (chief complaint)sca lp1 (chief complaint)omari mo1 (chief complaint) Attention deficitFibromyal giaSeborrheic dermatitisInconc lusive mammogram 3 Tristen Jay. [address], [place], [place], [address] , [place]. tel:[phone] OFFICE/OUTPA TIENT VISIT, [facility], [address], [place], [place], [address], [place] tel:[phone] [facility] ADD (chief complaint)kary n (chief complaint)sca lp1 (chief complaint) Attention deficitFibromyal giaLump in the left breastSeborrheic dermatitis 3 Tristen Jay. [address], [place], [place], [address] , [place]. tel:[phone] OFFICE/OUTPA TIENT VISIT, [facility], [address], [place], [place], [address], [place] [phone] [facility] breast1 (chief complaint)ADD (chief complaint)kary n (chief complaint)con stipation1 (chief complaint) Lump in the left breastIrritable bowel syndrome with constipationAtte ntion deficitFibromyal delisa 3 Tristen Jay. [address], [place], [place], [address] , [place]. [phone] OFFICE/OUTPA TIENT VISIT, [facility], [address], [place], [place], [address], [place] tel:[phone] [facility] ADD (chief complaint)kary n (chief complaint)ins omani1 (chief complaint) Attention deficitFibromyal giaPrimary insomniaIrritabl e bowel syndrome with constipation 3 Tristen Jay. [address], [place], [place], [address] , [place]. tel:[phone] OFFICE/OUTPA TIENT VISIT, [facility], [address], [place], [place], [address], [place] tel:[phone] [facility] ADD (chief complaint)kary n (chief complaint)acn e (chief complaint) AcneAttention deficitFibromyal delisa 3 Tristen Jay. [address], [place], [place], [address] , [place]. tel:[phone] OFFICE/OUTPA TIENT VISIT, [facility], [address], [place], [place], [address], [place] tel:[phone] [facility] Medicine pain (chief complaint)ADD (chief complaint)acn e1 (chief complaint) AcneAttention deficitFibromyal delisa 3 Tristen Rosas [address], [place], [place], [address] , [place]. tel:[phone] OFFICE/OUTPA TIENT VISIT, EST [facility], [address], [place], [place], [address], [place] tel:[phone] [facility] pain (chief complaint)ADD (chief complaint)ins omnia1 (chief complaint)sic k (chief complaint) FibromyalgiaAtte ntion deficitPrimary insomniaAcute sinusitis 3 Tristen Rosas [address], [place], [place], [address] , [place]. tel:[phone] PREV VISIT, EST, AGE 40-64 [facility], [address], [place], [place], [address], [place] tel:[phone] [facility] physical (chief complaint) Encounter for general adult medical examination without abnormal findings 3 Tristen Jay. [address], [place], [place], [address] , [place]. 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 tel:[phone] OFFICE/OUTPA TIENT VISIT, [facility], [address], [place], [place], [address], [place] tel:[phone] [facility] Medicine pain (chief complaint)ADD (chief complaint)hunter k pain1 (chief complaint)ins omnia1 (chief complaint) Attention deficitFibromyal giaBursitis of lt shoulderPrimary insomnia 2 Tristen Jay. [address], [place], [place], [address] , [place]. tel:[phone] OFFICE/OUTPA TIENT VISIT, [facility], [address], [place], [place], [address], [place] tel:[phone] [facility] pain (chief complaint)ADD (chief complaint) FibromyalgiaAtte ntion deficit 2 Tristen Jay. [address], [place], [place], [address] , [place]. [phone] OFFICE/OUTPA TIENT VISIT, [facility], [address], [place], [place], [address], [place] tel:[phone] [facility] pain (chief complaint)ADD (chief complaint)con stipation1 (chief complaint) Attention deficitFibromyal giaIrritable bowel syndrome with constipation 2 Tristen Jay. [address], [place], [place], [address] , [place]. tel:[phone] OFFICE/OUTPA TIENT VISIT, [facility], [address], [place], [place], [address], [place] tel:[phone] [facility] pain (chief complaint)ADD (chief complaint)ins omnia1 (chief complaint) Attention deficitFibromyal giaPrimary insomnia 2 Tristen Jay. [address], [place], [place], [address] , [place]. tel:[phone] OFFICE/OUTPA TIENT VISIT, [facility], [address], [address], [place] tel:[phone] [facility] anxiety1 (chief complaint)ADD (chief complaint)thr ombocytopenia 1 (chief complaint)hem aturia1 (chief complaint)ski n (chief complaint) Benign essential microscopic hematuriaOther thrombocytosisFi bromyalgiaAttent ion deficitCelluliti s of right lower limb 2 Ramon Pierre. [address], [place], [place], [address] , [place]. tel:[phone] OFFICE/OUTPA TIENT VISIT, [facility], [address], [place], [place], [address], [place] tel:[phone] [facility] ADD (chief complaint)kary n (chief complaint) Attention deficitFibromyal delisa 2 Tristen Pierre. [address], [place], [place], [address] , [place]. tel:[phone] OFFICE/OUTPA TIENT VISIT, [facility], [address], [place], [place], [address], [place] tel:[phone] [facility] ADD (chief complaint)ins omnia1 (chief complaint)kary n (chief complaint) Attention deficitFibromyal giaPrimary insomnia 2 Tristen Pierre. [address], [place], [place], [address] , [place]. tel:[phone] OFFICE/OUTPA TIENT VISIT, [facility], [address], [place], [place], [address], [place] tel:[phone] [facility] ADD (chief complaint)kary n (chief complaint)lily telet1 (chief complaint)HLP (chief complaint) Essential thrombocytosisAt tention deficitFibromyal giaHyperlipidemi aHematuria 2 Tristen Pierre. [address], [place], [place], [address] , [place]. tel:[phone] OFFICE/OUTPA TIENT VISIT, [facility], [address], [place], [place], [address], [place] tel:[phone] [facility] ADD (chief complaint)kary n (chief complaint)hem aturai1 (chief complaint)emp hysema1 (chief complaint) EmphysemaAttenti on deficitFibromyal giaHematuria Dec- 2 Tristen Jay. [address], [place], [place], [address] , [place]. tel:[phone] OFFICE/OUTPA TIENT VISIT, EST [facility], [address], [place], [place], [address], [place] tel:[phone] [facility] COPD1 (chief complaint) Emphysema 2 Tristen Jay. [address], [address], [place], [place], [address] , [place]. tel:[phone] OFFICE/OUTPA TIENT VISIT, EST [facility], [address], [place], [place], [address], [place] tel:[phone] [facility] ADD (chief complaint)ins omnia1 (chief complaint)kayr n (chief complaint) FibromyalgiaAtte ntion deficitInsomniaE ncounter for oth screening for malignant neoplasm of breast 2 Tristen Jay. [address], [place], [address] , [place]. tel:[phone] PREV VISIT, EST, AGE 40-64 [facility], [address], [place], [place], [address], [place] tel:[phone] [facility] Physical (chief complaint) Encounter for general adult medical examination without abnormal findings 1 Tristen Jay. [address], [place], [place], [address] , [place]. tel:[phone] OFFICE/OUTPA TIENT VISIT, EST [facility], [address], [place], [place], [address], [place] tel:[phone] [facility] Medicine ADD (chief complaint)ins omnia1 (chief complaint)kary n (chief complaint) Attention deficitFibromyal giaInsomnia 1 Tristen Jay. [address], [place], [place], [address] , [place]. 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 tel:[phone] OFFICE/OUTPA TIENT VISIT, [facility], [address], [place], [place], [address], [place] tel:[phone] [facility] pain (chief complaint)ADD (chief complaint)con stipation1 (chief complaint) ConstipationFibr omyalgiaAttentio n deficit 1 Tristen Rosas [address], [place], [place], [address] , [place]. tel:[phone] OFFICE/OUTPA TIENT VISIT, [facility], [address], [place], [place], [address], [place] tel:[phone] [facility] back pain1 (chief complaint) Muscle spasm of back 1 Tristen Rosas [address], [place], [place], [address] , [place]. tel:[phone] OFFICE/OUTPA TIENT VISIT, [facility], [address], [place], [place], [address], [place] tel:[phone] [facility] ADD (chief complaint)fib romyalgia1 (chief complaint)ins omnia1 (chief complaint) FibromyalgiaInso mniaAttention deficitTobacco use 1 Tristen Jay. [address], [place], [place], [address] , . tel:[phone] OFFICE/OUTPA TIENT VISIT, [facility], [address], [address], tel:[phone] [facility] ADD (chief complaint)fib romyalgia1 (chief complaint)sin us congestion1 (chief complaint)tob acco (chief complaint) Attention deficitFibromyal giaTobacco useAcute bronchitis 1 Tristen Rosas [address], [place], [place], [address] , [place]. tel:[phone] OFFICE/OUTPA TIENT VISIT, [facility], [address], [address], [place] tel:[phone] [facility] ADD (chief complaint)fib romyalgia1 (chief complaint)tob acco1 (chief complaint) Attention deficitFibromyal giaTobacco use 1 Tristen Rosas [address], [place], [address] , [place]. 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 tel:[phone] OFFICE/OUTPA TIENT VISIT, [facility], [address], [address], tel:[phone] [facility] ADD (chief complaint)fib romyalgia1 (chief complaint)COD P1 (chief complaint)hem aturia1 (chief complaint) Attention deficitFibromyal giaHematuriaEmph ysemaEssential thrombocytosisEn counter for oth screening for malignant neoplasm of breast 1 Tristen Rosas [address], [address], [place], [place], [address] , [place]. tel:[phone] OFFICE/OUTPA TIENT VISIT, [facility], [address], [address], [place] tel:[phone] [facility] ADD (chief complaint)fib romyagia1 (chief complaint)ins omnia1 (chief complaint)hem aturia1 (chief complaint)lily telet1 (chief complaint) HematuriaEssenti al thrombocytosisFi bromyalgiaAttent ion deficitInsomnia 1 Tristen Rosas [address], [place], [id number] , [place]. tel:[phone] OFFICE/OUTPA TIENT VISIT, [facility], [address] [place], [address], [place] tel:[phone] [facility] COPD1 (chief complaint)ADD (chief complaint)fib romyalgia1 (chief complaint)HLP (chief complaint) FibromyalgiaAtte ntion deficitEmphysema HyperlipidemiaHe maturia 0 Tristen Jay. [address], [address], [place], [place], [address] , [place]. tel:[phone] OFFICE/OUTPA TIENT VISIT, [facility], [address], [place], [place], [address], [place] tel:[phone] [facility] sick (chief complaint)ADD (chief complaint)fib romyalgia1 (chief complaint) FibromyalgiaAtte ntion deficitViral infection 0 Tristen Jay. [address], [address], [place], [place], [address] , [place]. tel:[phone] OFFICE/OUTPA TIENT VISIT, [facility], [address] [place], [address], [place] tel:[phone] [facility] insomnia1 (chief complaint)ADD (chief complaint)fib romyalgia1 (chief complaint) InsomniaFibromya lgiaAttention deficit 0 Tristen Rosas [address], [address], [place], [place], [address] , [place]. 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 [address], [address], [place], [place], [address] , [place]. tel:[phone] OFFICE/OUTPA TIENT VISIT, [facility], [address] [place], [address], [place] tel:[phone] [facility] pain (chief complaint)ADD (chief complaint) Attention deficitFibromyal delisa 0 Tristen Jay. [address], [address], [place], [place], [address] , [place]. 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 [address], [place], [place], [address] , [place]. tel:[phone] OFFICE/OUTPA TIENT VISIT, [facility], [address], [place], [place], [address], [place] tel:[phone] [facility] fibromyalgia1 (chief complaint)ADD (chief complaint) FibromyalgiaAtte ntion deficit 0 Tristen Rosas [address], [place], [place], [address] , [place]. [phone] PREV VISIT, EST, AGE 40-64 [facility], [address], [place], [place], [address], [place] tel:[phone] [facility] physical (chief complaint) Encntr for general adult medical exam w/o abnormal findings 0 Tristen Jay. [address], [address], [place], [place], [address] , [place]. [phone] OFFICE/OUTPA TIENT VISIT, EST [facility], [address], [place], [place], [address], [place] tel:[phone] [facility] fibromyalgia1 (chief complaint)ADD (chief complaint)ins omnia1 (chief complaint)gal lbladder1 (chief complaint) FibromyalgiaAtte ntion deficitInsomniaD isease of gallbladder, unspecified 0 Tristen Jay. [address], [address], [place], [place], [address] , [place]. 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 [phone] OFFICE/OUTPA TIENT VISIT, [facility], [address], [address], tel:[phone] [facility] pain (chief complaint)ADD (chief complaint)hem aturia1 (chief complaint)sivan ght gain1 (chief complaint) Abnormal weight gainHematuriaFib romyalgiaAttenti on deficit 0 Tristen Rosas [address], [place], [place], [address] , [place]. [phone] Referring Provider: Timothy Romo [address] [facility], [place], [address]. tel:[phone] OFFICE/OUTPA TIENT VISIT, [facility], [address], [address], [place] tel:[phone] [facility] COPD1 (chief complaint)ADD (chief complaint)fib romyalgia1 (chief complaint) EmphysemaAttenti on deficitFibromyal delisa 0 Tristen [facility]as [facility] [place], [place], [address] , [place]. [phone] Referring Provider: Timothy Romo [address] [facility], [place] [address], [place], [place], [address]. 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 tel:[phone] Referring Provider: Timothy Romo [facility] A, [place], [place], [address]. tel:[phone] OFFICE/OUTPA TIENT VISIT, [facility], [address] [place], [address], tel:[phone] [facility] fibromyalgia1 (chief complaint)ADD (chief complaint)SHIRA D1 (chief complaint)pin k eye1 (chief complaint) Attention deficitFibromyal giaGERD w/o esophagitisAcute follicular conjunctivitis, right eye 9 Tristen Jay. [address] [facility] [address], [place], [place], [address] , . tel:[phone] Referring Provider: [facility] [address], [place], [place], [address]. tel:[phone] OFFICE/OUTPA TIENT VISIT, [facility], [address] [place], [address], [place] tel:[phone] [facility] hematuria1 (chief complaint)fib romyalgia1 (chief complaint)fat igue1 (chief complaint)abd pain1 (chief complaint) FibromyalgiaGERD w/o esophagitisHemat uriaAttention deficit 9 Tristen Rosas [facility], [place], [place], [address] , [place]. tel:[phone] Referring Provider: Timothy Romo [facility], [place] [address], [place], [place], [address]. tel:[phone] OFFICE/OUTPA TIENT VISIT, [facility], [address] [place], [address], [place] tel:[phone] [facility] abd pain1 (chief complaint)fib romyalgia1 (chief complaint)ADD (chief complaint)ins omnia1 (chief complaint)emp hysema1 (chief complaint) EmphysemaFibromy algiaAttention deficitInsomniaH ematuria 9 Tristen Jay. [address], [address], [place], [place], [address] , [place]. tel:[phone] Referring Provider: Timothy Romo [address], [place], [place], [address]. tel:[phone] OFFICE/OUTPA TIENT VISIT, [facility], [address], [place], [place], [address], [place] [phone] [facility] pink eye (chief complaint)fib romyalgia1 (chief complaint) FibromyalgiaConj unctival hemorrhage, right eye 9 Tristen Jay. [address], [place], [place], [address] , [place]. [phone] Referring Provider: Timothy Romo [address], [place], [place], [address]. tel:[phone] OFFICE/OUTPA TIENT VISIT, [facility], [address], [place], [place], [address], [place] tel:[phone] [facility] COPD1 (chief complaint)fib romyalgia1 (chief complaint)abd pain1 (chief complaint)sic k (chief complaint) Acute sinusitisFibromy algiaAttention deficitGERD w/o esophagitisEmphy semaTobacco use 9 Tristen Jay. [address], [place], [place], [address] , [place]. [phone] Referring Provider: Timothy Romo [address], [place], [place], [address]. tel:[phone] OFFICE/OUTPA TIENT VISIT, [facility], [address], [place], [place], [address], [place] tel:[phone] [facility] Medicine abd pain1 (chief complaint)fib romyalgia1 (chief complaint)ADD (chief complaint) Attention deficitFibromyal giaDisease of gallbladder, unspecifiedGERD w/o esophagitis 9 Tristen Rosas [address], [address], [place], [place], [address] , [place]. tel:[phone] Referring Provider: Timothy Romo [address], [place], [place], [address]. tel:[phone] PREV VISIT, EST, AGE 40-64 [facility], [address], [place], [place], [address], [place] [phone] [facility] PHysical (chief complaint) Encntr for general adult medical exam w/o abnormal findings 9 Tristen Jay. [address], [place], [place], [address] , [place]. [phone] Referring Provider: Timothy Romo [address], [place], [place], [address]. 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 [address], [address], [place], [place], [address] , [place]. [phone] Referring Provider: Timothy Romo [address], [place], [place], [address]. tel:[phone] OFFICE/OUTPA TIENT VISIT, EST [facility], [address], [place], [place], [address], [place] [phone] [facility] abd pain1 (chief complaint)hem aturia1 (chief complaint)ADD (chief complaint) Abdominal painFibromyalgia Attention deficitHematuria Ovarian cyst 9 Tristen Jay. [address], [place], [place], [address] , [place]. tel:[phone] Referring Provider: Timothy Romo [address], [place], [place], [address]. tel:[phone] OFFICE/OUTPA TIENT VISIT, [facility], [address], [place], [place], [address], [place] tel:[phone] [facility] sick (chief complaint)ADD (chief complaint)fib romyalgia1 (chief complaint)ins omnia1 (chief complaint)hem aturia1 (chief complaint) FibromyalgiaAtte ntion deficitOvarian cystAcute bronchitisInsomn ia 9 Tristen Jay. [address], [place], [place], [address] , [place]. tel:[phone] Referring Provider: Timothy Romo [facility], [place] [address], [place], [place], [address]. tel:[phone] OFFICE/OUTPA TIENT VISIT, [facility], [address], [place], [place], [address], [place] tel:[phone] [facility] hematuria1 (chief complaint)fib romyalgia1 (chief complaint)ADD (chief complaint)tob acco1 (chief complaint) FibromyalgiaAtte ntion deficitHematuria Ovarian cystTobacco use 9 Tristen Jay. [address], [facility], [place] [address], [place], [place], [address] , [place]. tel:[phone] OFFICE/OUTPA TIENT VISIT, [facility], [address] [place], [address], [place] tel:[phone] [facility] COPD1 (chief complaint)fib romyalgia1 (chief complaint)hem aturia1 (chief complaint)ADD (chief complaint) HematuriaFibromy algiaEmphysemaAc akhiok bronchitisAttent ion deficit 0201 8 Tristen Jay. [address], [place], [place], [address] , [place]. tel:[phone] Referring Provider: Timothy Romo [address], [place], [place], [address]. 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 [address], [address], [place], [place], [address] , [place]. tel:[phone] Referring Provider: Timothy Romo [facility] A, [place], [place], [address]. 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 [address], [address], [place], [place], [address] , [place]. tel:[phone] Referring Provider: Timothy Romo [facility] [address], [place], [place], [address]. tel:[phone] OFFICE/OUTPA TIENT VISIT, [facility], [address] [place], [address], [place] tel:[phone] [facility] COPD1 (chief complaint)sivan ght gain1 (chief complaint)fib romyalgia1 (chief complaint)ADD (chief complaint)ins omnia1 (chief complaint) EmphysemaInsomni aAbnormal weight gainFibromyalgia Sep 0 8 Tristen Jay. [address], [facility], [place] [address], [place], [place], [address] , [place]. tel:[phone] Referring Provider: Timothy Romo [facility] A, [place], [place], [address]. tel:[phone] OFFICE/OUTPA TIENT VISIT, [facility], [address], [place], [place], [address], [place] tel:[phone] [facility] insomnia1 (chief complaint)fib romyalgia1 (chief complaint)ADD (chief complaint)sob 1 (chief complaint) EmphysemaInsomni aFibromyalgiaAtt ention deficit 8 Trisetn Jay. [address], [address], [place], [place], [address] , [place]. tel:[phone] Referring Provider: Pierre Ramon, Timothy [address], [place], [place], [address]. tel:[phone] OFFICE/OUTPA TIENT VISIT, [facility], [address], [place], [place], [address], [place] tel:[phone] [facility] sick1 (chief complaint)ins omnia1 (chief complaint)ast hma1 (chief complaint) AsthmaInsomniaAc akhiok bronchitisTobacc o use 8 Tristen Jay. [address], [place], [place], [address] , [place]. [phone] Referring Provider: Timothy Romo [address], [place], [place], [address]. tel:[phone] OFFICE/OUTPA TIENT VISIT, [facility], [address], [place], [place], [address], [place] tel:[phone] [facility] fibromyalgia (chief complaint)ast hma1 (chief complaint)ADD (chief complaint)anx iety1 (chief complaint) FibromyalgiaAtte ntion deficitGeneraliz ed anxiety disorderAsthma 8 Tristen Jay. [address], [place], [place], [address] , [place]. tel:[phone] Referring Provider: Timothy Romo [address], [place], [place], [address]. tel:[phone] PREV VISIT, EST, AGE 40-64 [facility], [address], [place], [place], [address], [place] tel:[phone] [facility] PHysical (chief complaint) AsthmaFibromyalg iaGeneralized anxiety disorderEncounte r for general adult medical exam w abnormal findings 8 Tristen Rosas [address], [facility], [place] [address], [place], [place], [address] , [place]. tel:[phone] OFFICE/OUTPA TIENT VISIT, [facility], [address], [place], [place], [address], [place] tel:[phone] [facility] Medicine fibormyalgia1 (chief complaint)ast hma1 (chief complaint)ADD (chief complaint)ins omnia1 (chief complaint) InsomniaFibromya lgiaAsthmaAttent ion deficit 8 Tristen Rosas [address] [facility] [address], [place], [place], [address] , [place]. [phone] Referring Provider: Timothy Romo [facility], [place], [place], [address]. tel:[phone] OFFICE/OUTPA TIENT VISIT, [facility], [address], [place], [place], [address], [place] tel:[phone] [facility] Medicine asthma1 (chief complaint)fib romyalgia1 (chief complaint)ADD 1 (chief complaint)anx iety1 (chief complaint) Attention deficitAsthmaGen eralized anxiety disorderInsomnia 8 Tristen Aguirre [facility] [address], [place], [place], [address] , [place]. [phone] Referring Provider: Timothy Romo [address] [facility], [place] [address], [place], [place], [address]. tel:[phone] OFFICE/OUTPA TIENT VISIT, [facility], [address] [place], [place], [address], [place] tel:[phone] [facility] chronic pain1 (chief complaint)anx iety1 (chief complaint)ADD (chief complaint)lym ph (chief complaint) FibromyalgiaLymp hadenopathyGener alized anxiety disorderAttentio n deficit 7 Tristen Rosas [address], [place], [place], [address] , [place]. tel:[phone] Referring Provider: Pierre Ramon [address] [facility] A, [place], [place], [address]. tel:[phone] OFFICE/OUTPA TIENT VISIT, [facility], [address], [place], [place], [address], [place] tel:[phone] [facility] Medicine fibromyalgia1 (chief complaint)anx iety1 (chief complaint)ADD (chief complaint)1st toe (chief complaint) FibromyalgiaPain in right toeInsomniaAtten tion deficit 7 Tristen Jay. [address] [facility] [address], [place], [place], [address] , [place]. tel:[phone] Referring Provider: Timothy Romo [facility] A, [place], [place], [address]. tel:[phone] PREV VISIT, EST, AGE 40-64 [facility], [address], [place], [place], [address], [place] tel:[phone] [facility] Physical (chief complaint) Encounter for general adult medical exam w abnormal findingsFibromya lgiaGeneralized anxiety disorderAttentio n deficit 7 Tristen Jay. [address], [facility], [place] [address], [place], [place], [address] , [place]. [phone] OFFICE/OUTPA TIENT VISIT, EST [facility], [address], [place], [place], [address], [place] tel:[phone] [facility] Medicine finger lac (chief complaint)ADD 1 (chief complaint)fib romyalgia1 (chief complaint)ins omnia1 (chief complaint) Tobacco useFibromyalgiaG eneralized anxiety disorderAttentio n deficit 7 Tristen Jay. [address], [place], [place], [address] , [place]. tel:[phone] Referring Provider: Timothy Romo [facility] A, [place], [place], [address]. tel:[phone] OFFICE/OUTPA TIENT VISIT, [facility], [address], [place], [place], [address], [place] tel:[phone] [facility] fibromyalgia (chief complaint)fib romyalgia1 (chief complaint)ADD (chief complaint)anx iety1 (chief complaint)hem aturia1 (chief complaint)tob acco (chief complaint) FibromyalgiaAtte ntion deficitGeneraliz ed anxiety disorderTobacco use 7 Tristen Jay. [address], [address], [place], [place], [address] , [place]. tel:[phone] Referring Provider: Timothy Romo [facility] A, [place], [place], [address]. tel:[phone] OFFICE/OUTPA TIENT VISIT, [facility], [address], [place], [place], [address], [place] tel:[phone] [facility] fibromyalgia1 (chief complaint)ADD (chief complaint)anx iety1 (chief complaint) Attention deficitOther insomniaGenerali zed anxiety disorderFibromya lgia 6 Tristen Jay. [address], [address], [place], [place], [address] , [place]. tel:[phone] Referring Provider: Timothy Romo [address], [place], [place], [address]. tel:[phone] OFFICE/OUTPA TIENT VISIT, [facility], [address], [place], [place], [address], [place] tel:[phone] [facility] chronic pain1 (chief complaint)ADD (chief complaint)anx iety1 (chief complaint)dry eyes (chief complaint) FibromyalgiaInso mniaAttention deficitDry eye syndrome of lacrimal gland Sep-0 6 Tristen Jay. [address], [address], [place], [place], [address] , [place]. tel:[phone] Referring Provider: Timothy Romo [address], [place], [place], [address]. tel:[phone] OFFICE/OUTPA TIENT VISIT, [facility], [address], [place], [place], [address], [place] [phone] [facility] ADD (chief complaint)anx iety1 (chief complaint)fib romyalgia1 (chief complaint)hem aturia1 (chief complaint) HematuriaFibromy algiaAttention deficitGeneraliz ed anxiety disorder 6 Tristen Jay. [address], [address], [place], [place], [address] , [place]. tel:[phone] Referring Provider: Timothy Romo [facility] A, [place], [place], [address]. tel:[phone] OFFICE/OUTPA TIENT VISIT, [facility], [address], [place], [place], [address], [place] [phone] [facility] fibromyalgia1 (chief complaint)ADD 1 (chief complaint)anx iety1 (chief complaint)too th1 (chief complaint) Attention deficitOther insomniaFibromya lgiaGeneralized Anxiety Disorder 6 Tristen Jay. [address], [address], [place], [place], [address] , [place]. tel:[phone] Referring Provider: Timothy Romo [facility] [place] [facility], [place], [place], [address]. tel:[phone] OFFICE/OUTPA TIENT VISIT, [facility], [address] [place], [address], [place] [phone] [facility] chronic pain (chief complaint)anx iety1 (chief complaint)ADD (chief complaint)hem aturia (chief complaint) HematuriaAttenti on deficitFibromyal giaVitamin D deficiency, unspecified 6 Tristen Jay. [address], [address], [place], [place], [address] , [place]. tel:[phone] Referring Provider: Timothy Romo [address] [facility], [place] [address], [place], [place], [address]. tel:[phone] OFFICE/OUTPA TIENT VISIT, [facility], [address], [place], [place], [address], [place] tel:[phone] [facility] fibromyalgia (chief complaint)ADD (chief complaint)ins omnia (chief complaint) Attention deficitFibromyal giaOther insomnia 6 Tristen Jay. [address], [address], [place], [place], [address] , [place]. tel:[phone] Referring Provider: Timothy Romo [address], [place], [place], [address]. tel:[phone] PREV VISIT, EST, AGE 18-39 [facility], [address], [place], [place], [address], [place] tel:[phone] [facility] PHysical (chief complaint) Encntr for general adult medical exam w/o abnormal findings 6 Tristen Jay. [address], [place], [place], [address] , [place]. tel:[phone] Referring Provider: Timothy Romo [address], [place], [place], [address]. tel:[phone] OFFICE/OUTPA TIENT VISIT, EST [facility], [address], [place], [place], [address], [place] tel:[phone] [facility] insomnia1 (chief complaint)fib romyalgia (chief complaint)ADD (chief complaint) Other insomniaFibromya lgiaAttention deficit 6 Tristen Jay. [address], [place], [place], [address] , [place]. tel:[phone] Referring Provider: Timothy Romo [address], [place], [place], [address]. tel:[phone] OFFICE/OUTPA TIENT VISIT, [facility], [address], [place], [place], [address], [place] tel:[phone] [facility] chronic pain (chief complaint)ADD (chief complaint)ins omnia (chief complaint) Attention deficitFibromyal giaOther insomnia 6 Tristen Jay. [address], [place], [place], [address] , [place]. tel:[phone] Referring Provider: Pierre Ramon, Timothy Tamayo, [place], [place], [address]. tel:[phone] OFFICE/OUTPA TIENT VISIT, [facility], [address], [place], [place], [address], [place] tel:[phone] [facility] fibromyalgia1 (chief complaint)ADD 1 (chief complaint)ins omnia1 (chief complaint)con stipation1 (chief complaint) FibromyalgiaAtte ntion deficitOther insomniaOther constipation 5 Tristen Rosas [address], [address], [place], [place], [address] , [place]. tel:[phone] Referring Provider: Timothy Romo [facility] [place] [address], [place], [place], [address]. tel:[phone] OFFICE/OUTPA TIENT VISIT, [facility], [address], [place], [place], [address], [place] tel:[phone] [facility] fibromyalgia1 (chief complaint)ADD 1 (chief complaint)ins omnia1 (chief complaint) Other insomniaAttentio n deficitFibromyal delisa 5 Tristen Rosas [address], [place], [place], [address] , [place]. tel:[phone] Referring Provider: Timothy Romo [address], [place], [place], [id number]. tel:[phone] OFFICE/OUTPA TIENT VISIT, [facility], [address], [place], [address], [place] tel:[phone] [facility] chronic pain (chief complaint)ADD (chief complaint) FibromyalgiaAtte ntion-deficit hyperactivity disorder, unspecified typeOpioid dependence, uncomplicated 8 5 Tristen Rosas [address], [address], [place], [place], [address] , [place]. tel:[phone] Referring Provider: Timothy Romo [address], [place], [place], [address]. tel:[phone] OFFICE/OUTPA TIENT VISIT, [facility], [address], [place], [place], [address], [place] tel:[phone] [facility] chronic pain (chief complaint)ADD (chief complaint)elb ow pain (chief complaint)tob acco (chief complaint) FibromyalgiaPain in joint involving upper armAttention deficit disorder of childhood without mention of hyperactivityTob acco abuse Jun- 5 Tristen Jay. [address], [address], [place], [place], [address] , [place]. [phone] Referring Provider: Timothy Romo [address], [place], [place], [id number]. tel:[phone] OFFICE/OUTPA TIENT VISIT, [facility], [address], [place], [place], [address], [place] tel:[phone] [facility] toothache (chief complaint) Facial abscessAtypical facial pain 5 Tristen Jay. [address], [place], [place], [address] , [place]. [phone] Referring Provider: Timothy Romo [address], [place], [place], [address]. tel:[phone] OFFICE/OUTPA TIENT VISIT, [facility], [address], [place], [place], [address], [place] tel:[phone] [facility] Chronic pain (chief complaint)ADD (chief complaint)elb ow pain (chief complaint)ear pain (chief complaint) Attention deficit disorder of childhood without mention of hyperactivityPai n in joint involving upper armLumbagoOtalgi a 5 Tristen Jay. [address], [address], [place], [place], [address] , [place]. [phone] Referring Provider: Timothy Romo [address], [place], [place], [address]. tel:[phone] OFFICE/OUTPA TIENT VISIT, [facility], [address], [place], [place], [address], [place] tel:[phone] [facility] left arm pain (chief complaint)chr onic pain (chief complaint)ADD (chief complaint) Attention deficit disorder of childhood without mention of hyperactivityPai n in joint involving upper armLumbago 5 Tristen Jay. [address], [address], [place], [place], [address] , [place]. [phone] Referring Provider: Pierre Ramon, [address], [place], [place], [address]. tel:[phone] OFFICE/OUTPA TIENT VISIT, [facility], [address], [place], [address], [place] tel:[phone] [facility] back pain (chief complaint)elb ow pain (chief complaint)ADD (chief complaint) Lateral epicondylitisLum bagoAttention deficit disorder of childhood without mention of hyperactivity 5 Tristen Jay. [address], [address], [place], [place], [address] , [place]. [phone] Referring Provider: Timothy Romo [address], [place], [place], [address]. tel:[phone] OFFICE/OUTPA TIENT VISIT, [facility], [address], [place], [place], [address], [place] tel:[phone] [facility] back pain (chief complaint)elb ow pain (chief complaint) Pain in joint involving upper armLumbagoCervic algiaAttention deficit disorder of childhood without mention of hyperactivity 5 Tristen Jay. [address], [address], [place], [place], [address] , [place]. tel:[phone] Referring Provider: Timothy Rmoo [address], [place], [place], [address]. tel:[phone] OFFICE/OUTPA TIENT VISIT, [facility], [address], [place], [place], [address], [place] tel:[phone] [facility] chornic pain (chief complaint)elb ow pain (chief complaint) CervicalgiaPain in joint involving upper armLumbago 0 5 Tristen Jay. [address], [place], [place], [address] , [place]. tel:[phone] Referring Provider: Pierre Ramon, [address], [place], [place], [address]. tel:[phone] OFFICE/OUTPA TIENT VISIT, [facility], [address], [address], [place] tel:[phone] [facility] Medicine ADD (chief complaint)vit newman D (chief complaint)Nec k pain (chief complaint)elb ow pain (chief complaint) Attention deficit disorder of childhood without mention of hyperactivityUns pecified vitamin d deficiencyCervic algiaPain in joint involving upper arm 5 Tristen Jay. [address], [place], [place], [address] , [place]. tel:[phone] Referring Provider: Pierre Ramon, Timothy Smith [facility] [address], [place], [place], [address]. tel:[phone] PREV VISIT, NEW, AGE 18-39 [facility], [address] [place], [address], [place] tel:[phone] [facility] Physical (chief complaint) Routine Medical ExamRoutine Medical Exam 5 Tristen Jay. [address], [place], [place], [address] , [place]. tel:[phone] Family History Family Member Type Diagnosis Age At Onset Father Problem (finding) Cancer, lung Sister Problem (finding) Cancer - stomach Mother Problem (finding) Alive and well Father Problem (finding) Coronary artery disease 64 Sister Problem (finding) Alive and well Payers Payer name Insurance type Covered green party ID Tor claudio(s) [facility] CI [id number] Social History Type Description Quantity Date Captured Comments Alcohol Use Details Caffeine Use Details Unknown Tobacco Use Status Ex-cigarette smoker 025 Smoking Status Former smoker Sex Female Vital Signs Date / Time: Height Weight BMI Pulse Rate Blood Pressure Temperature Respiratory Rate Body Surface Area Head Circumference BMI percentile Pulse Ox Inhaled Ox 11:22 AM 62.00 in 139.00 lbs 25.4 2 kg/m eter (2) 56 /min 117/59 mm[Hg] 98.0 F 16 /min Chief Complaint And Reason For Visit From encounter dated '10/25/2024 11:22'. ADD (chief complaint). Description: Patient has ADD. Patient has inattentive type. Patient feels scatterbrained. Patient feel poor focus and difficulty completing tasks. Patient states that Adderall is helping with symptoms. Patient feels more focused. Pt feels more energy. Patient denies any headache, dry mouth, headache, chest pain. Patient denies any appetite loss. fibroyalgia1 (chief complaint). Description: Pt has fibromyalgia and chronic neck and back pain. Pttakes norco and ultram PRn for pain and doing ok Pt failed neurontin. Pt denies any saddle area paresthesia . Pt also takes ibuprofen PRn and doing ok insomnia1 (chief complaint). Description: Pt has chronic insomnia Pt takes ambien qhs PRN and doingok Pt needs ambien and doing ok Plan Of Treatment Date Type Action Status Goal Tobacco cessation counseling completed Goal Tobacco cessation counseling completed Goal Special diet education compl eted Goal Tobacco cessation counseling completed Goal Tobacco cessation counseling completed Goal Special diet education compl eted Goal Special diet education compl eted Goal Tobacco cessation counseling completed Goal Special diet education compl eted Goal Tobacco cessation counseling completed Goal Tobacco cessation counseling completed Goal Special diet education compl eted Goal Tobacco cessation counseling completed Goal Special diet education compl eted Goal Tobacco cessation counseling completed Goal Special diet education compl eted Goal Tobacco cessation counseling completed Goal Special diet education compl eted Goal Tobacco cessation counseling completed Goal Tobacco cessation counseling completed Goal Tobacco cessation counseling completed Goal Special diet education compl eted Goal Tobacco cessation counseling completed Goal Tobacco cessation counseling completed Goal Tobacco cessation counseling completed Goal Tobacco cessation counseling completed Goal Tobacco cessation counseling completed Referral Ordered: MAMMOGRAM, ONE BREAST ordered Referral Ordered: COLONOSCOPY AND BIOPSY ordered Referral Ordered: UPPER GI AIR CONTRASTW/ SMALL BOWEL SERIES ordered Referral Referred To: Kayden Burkett MD [address] [place], [place], [address] Ordered: Referrals: Kayden Burkett MD Evaluate and treat ordered Referral Ordered: NUC MED HIDA (HEPATOBILIARY) SCAN ordered Referral Ordered: US EXAM, ABDOM, COMPLETE ordered Referral Ordered: US, PELVIC (NONOBSTETRIC); ordered Referral Ordered: ANYA JOHNSON -[facility] : Surgery (related to Hematuria) ordered Referral Referred To: ANYA JOHNSON [address] [place], [place], [id number] Ordered: Referrals: [facility] : Surgery. ANYA JOHNSON. Evaluate and treat ordered Referral Ordered: CT ABDOMEN&PELVIS W/CONTRAST ordered Referral Ordered: Pulmonology (related to Emphysema) ordered Referral Ordered: Pulmonology (related to Asthma) ordered Referral Ordered: Referrals: Pulmonology. 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 Evaluate and treat ordered Referral Ordered: Physical Therapy (related to Fibromyalgia) ordered Referral Ordered: Physical Therapy (related to Fibromyalgia) ordered Referral Referred To: Physical Therapy Ordered: Referrals: Physical Therapy. Evaluate and treat ordered Referral Ordered: Plastic Surgery (related to Lateral epicondylitis) ordered Referral Ordered: Referrals: Plastic Surgery ordered Referral Ordered: MRI JOINT UPR EXTREM W/O DYE Left elbow ordered Referral Ordered: MRI LUMBAR SPINE W/O DYE ordered Referral Referred To: Physical Therapy Ordered: Referral: Physical Therapy. ordered Referral Ordered: CERVICAL SPINE XRAY 2 OR 3 VIEWS ordered History Of Present Illness Encounter Date Complaint History Of Prese nt Illness ADD Patient has ADD. Patient has inattentive type. Patient feels scatterbrained. Patient feel poor focus and difficulty completing tasks. Patient states that Adderall is helping with symptoms. Patient feels more focused. Pt feels more energy. Patient denies any headache, dry mouth, headache, chest pain. Patient denies any appetite loss. fibroyalgia1 Pt has fibromyal delisa and chronic neck and back pain. Pt takes norco and ultram PRn for pain and doing ok Pt failed neurontin. Pt denies any saddle area paresthesia . Pt also takes ibuprofen PRn and doing ok insomnia1 Pt has chronic i nsomnia Pt takes ambien qhs PRN and doing ok Pt needs ambien and doing ok ADD Patient has ADD. Patient has inattentive type. Patient feels scatterbrained. Patient feel poor focus and difficulty completing tasks. Patient states that Adderall is helping with symptoms. Patient feels more focused. Pt feels more energy. Patient denies any headache, dry mouth, headache, chest pain. Patient denies any appetite loss. pain Pt has fibromyal delisa and chronic neck and back pain. Pt takes norco and ultram PRn for pain and doing ok Pt failed neurontin. Pt denies any saddle area paresthesia . Pt also takes ibuprofen PRn and doing ok ADD Patient has ADD. Patient has inattentive type. Patient feels scatterbrained. Patient feel poor focus and difficulty completing tasks. Patient states that Adderall is helping with symptoms. Patient feels more focused. Pt feels more energy. Patient denies any headache, dry mouth, headache, chest pain. Patient denies any appetite loss. pain Pt has fibromyal delisa and chronic neck and back pain. Pt takes norco and ultram PRn for pain and doing ok Pt failed neurontin. Pt denies any saddle area paresthesia . Pt also takes ibuprofen PRn and doing ok colon Pt denies any GI issue Pt is noncompliant with colonoscopy. sinus1 Pt c/o acute ons et of sinus congestion, bilateral ear pain and sore throat since two days ago. Pt denies any fever, chill, sob or cough insomnia1 Pt has chronic i nsomnia Pt takes ambien qhs PRn and doing ok. ADD Patient has ADD. Patient has inattentive type. Patient feels scatterbrained. Patient feel poor focus and difficulty completing tasks. Patient states that Adderall is helping with symptoms. Patient feels more focused. Pt feels more energy. Patient denies any headache, dry mouth, headache, chest pain. Patient denies any appetite loss. pain Pt has fibromyal dleisa and chronic neck and back pain. Pt takes norco and ultram PRn for pain and doing ok Pt failed neurontin. Pt denies any saddle area paresthesia . Pt also takes ibuprofen PRn and doing ok pain1 Pt has fibromyal delisa and chronic neck and back pain. Pt takes norco and ultram PRn for pain and doing ok Pt failed neurontin. Pt denies any saddle area paresthesia . Pt also takes ibuprofen PRn and doing ok ADD Patient has ADD. Patient has inattentive type. Patient feels scatterbrained. Patient feel poor focus and difficulty completing tasks. Patient states that Adderall is helping with symptoms. Patient feels more focused. Pt feels more energy. Patient denies any headache, dry mouth, headache, chest pain. Patient denies any appetite loss. pain Pt has fibromyal delisa and chronic neck and back pain. Pt takes norco and ultram PRn for pain and doing ok Pt failed neurontin. Pt denies any saddle area paresthesia . Pt also takes ibuprofen PRn and doing ok ADD Patient has ADD. Patient has inattentive type. Patient feels scatterbrained. Patient feel poor focus and difficulty completing tasks. Patient states that Adderall is helping with symptoms. Patient feels more focused. Pt feels more energy. Patient denies any headache, dry mouth, headache, chest pain. Patient denies any appetite loss. ADD Patient has ADD. Patient has inattentive type. Patient feels scatterbrained. Patient feel poor focus and difficulty completing tasks. Patient states that Adderall is helping with symptoms. Patient feels more focused. Pt feels more energy. Patient denies any headache, dry mouth, headache, chest pain. Patient denies any appetite loss. insomnia1 Pt has insomnia Pt takes ambien qhs PRN and doing ok Pt needs refilled. vaginal itching1 pt c/o persiste nt vaginal itching and some cloudy discharge for several weeks .Pt denies any pelvic pain pt saw [facility] and she was diagnosed with vaginal wall eczema and she was given steroid topical but has not helped Pt did try otc yeast med which seems helped slightly. Pt wants diflucan. pain Pt has fibromyal delisa and chronic neck and back pain. Pt takes norco and ultram PRn for pain and doing ok Pt failed neurontin. Pt denies any saddle area paresthesia . Pt also takes ibuprofen PRn and doing ok ADD Patient has ADD. Patient has inattentive type. Patient feels scatterbrained. Patient feel poor focus and difficulty completing tasks. Patient states that Adderall is helping with symptoms. Patient feels more focused. Pt feels more energy. Patient denies any headache, dry mouth, headache, chest pain. Patient denies any appetite loss. fibromyalgia1 Pt has fibromyal delisa and chronic neck and back pain. Pt takes norco and ultram PRn for pain and doing ok Pt failed neurontin. Pt denies any saddle area paresthesia . Pt also takes ibuprofen PRn and doing ok constipation1 Pt has not had m uch constipation. Pt denies any bowel change. Pt is noncompliant with c-scope. insomnia1 Pt has mild inso mnia Pt takes ambien qhs PRN. Pt has not been using ambien very much ADD Patient has ADD. Patient has inattentive type. Patient feels scatterbrained. Patient feel poor focus and difficulty completing tasks. Patient states that Adderall is helping with symptoms. Patient feels more focused. Pt feels more energy. Patient denies any headache, dry mouth, headache, chest pain. Patient denies any appetite loss. fibromyalgia1 Pt has fibromyal delisa and chronic neck and back pain. Pt takes norco and ultram PRn for pain and doing ok Pt failed neurontin. Pt denies any saddle area paresthesia . Pt also takes ibuprofen PRn and doing ok Seborrheic1 Pt has seborrhei c dermatitis. Pt uses clobetasol topical and doing ok insomnia1 Pt has chronic i nsomnia Pt takes ambien qhs PRN and doing ok ADD Patient has ADD. Patient has inattentive type. Patient feels scatterbrained. Patient feel poor focus and difficulty completing tasks. Patient states that Adderall is helping with symptoms. Patient feels more focused. Pt feels more energy. Patient denies any headache, dry mouth, headache, chest pain. Patient denies any appetite loss. fibromyalgia1 Pt has fibromyal delisa and chronic neck and back pain. Pt takes norco and ultram PRn for pain and doing ok Pt failed neurontin. Pt denies any saddle area paresthesia . Pt also takes ibuprofen PRn and doing ok scalp1 Pt c/o intermitt ent scalp itching with red spots. Pt denies any alopecia Pt denies any dandruff. Pt denies any bleeding or scabbing. sHe denies any scabbing or bleeding. Pt used steroid shampoo several months ago which did help Pt notices recurrent symptoms lately. ADD Patient has ADD. Patient has inattentive type. Patient feels scatterbrained. Patient feel poor focus and difficulty completing tasks. Patient states that Adderall is helping with symptoms. Patient feels more focused. Pt feels more energy. Patient denies any headache, dry mouth, headache, chest pain. Patient denies any appetite loss. fibromyalgia1 Pt has fibromyal delisa and chronic neck and back pain. Pt takes norco and ultram PRn for pain and doing ok Pt failed neurontin. Pt denies any saddle area paresthesia . Pt also takes ibuprofen PRn and doing ok scalp1 Pt c/o intermitt ent scalp itching with red spots. Pt denies any alopecia Pt denies any dandruff. Pt denies any bleeding or scabbing. sHe denies any scabbing or bleeding. Pt used steroid shampoo several months ago which did help Pt notices recurrent symptoms lately. fibromyalgia1 Pt has fibromyal delisa and chronic neck and back pain. Pt takes norco and ultram PRn for pain and doing ok Pt failed neurontin. Pt denies any saddle area paresthesia . Pt also takes ibuprofen PRn and doing ok mammo Pt denies any br east issue. Pt needs left breast diagnostic mammo and ultrasound. ADD Patient has ADD. Patient has inattentive type. Patient feels scatterbrained. Patient feel poor focus and difficulty completing tasks. Patient states that Adderall is helping with symptoms. Patient feels more focused. Pt feels more energy. Patient denies any headache, dry mouth, headache, chest pain. Patient denies any appetite loss. ADD Patient has ADD. Patient has inattentive type. Patient feels scatterbrained. Patient feel poor focus and difficulty completing tasks. Patient states that Adderall is helping with symptoms. Patient feels more focused. Pt feels more energy. Patient denies any headache, dry mouth, headache, chest pain. Patient denies any appetite loss. pain Pt has fibromyal delisa and chronic neck and back pain. Pt takes norco and ultram PRn for pain and doing ok Pt failed neurontin. Pt denies any saddle area paresthesia . Pt also takes ibuprofen PRn and doing ok pain Pt has fibromyal delisa and chronic neck and back pain. Pt takes norco and ultram PRn for pain and doing ok Pt failed neurontin. Pt denies any saddle area paresthesia . Pt also takes ibuprofen PRn and doing ok ADD Patient has ADD. Patient has inattentive type. Patient feels scatterbrained. Patient feel poor focus and difficulty completing tasks. Patient states that Adderall is helping with symptoms. Patient feels more focused. Pt feels more energy. Patient denies any headache, dry mouth, headache, chest pain. Patient denies any appetite loss. emphysema1 Pt states that s he recently quit smoking and she no longer feels sob and she weaned herself off combivent and she has not had the need to use albuterol for a while Pt denies any hemoptysis, sob or cough fibromyalgia Pt has fibromyal delisa and chronic neck and back pain. Pt takes norco and ultram PRn for pain and doing ok Pt failed neurontin. Pt denies any saddle area paresthesia . Pt also takes ibuprofen PRn and doing ok ADD Patient has ADD. Patient has inattentive type. Patient feels scatterbrained. Patient feel poor focus and difficulty completing tasks. Patient states that Adderall is helping with symptoms. Patient feels more focused. Pt feels more energy. Patient denies any headache, dry mouth, headache, chest pain. Patient denies any appetite loss. ADD Patient has ADD. Patient has inattentive type. Patient feels scatterbrained. Patient feel poor focus and difficulty completing tasks. Patient states that Adderall is helping with symptoms. Patient feels more focused. Pt feels more energy. Patient denies any headache, dry mouth, headache, chest pain. Patient denies any appetite loss. pain Pt has fibromyal delisa and chronic neck and back pain. Pt takes norco and ultram PRn for pain and doing ok Pt failed neurontin. Pt denies any saddle area paresthesia . Pt also takes ibuprofen PRn and doing ok insomnia1 Pt has insomnia and she takes ambien qhs PRn and doing ok Pt needs ambien refilled. IBS1 Pt has IBS-C. Pt states that she is taking fiber and she is doing ok Pt has not set up c-scope yet ADD Patient has ADD. Patient has inattentive type. Patient feels scatterbrained. Patient feel poor focus and difficulty completing tasks. Patient states that Adderall is helping with symptoms. Patient feels more focused. Pt feels more energy. Patient denies any headache, dry mouth, headache, chest pain. Patient denies any appetite loss. pain Pt has fibromyal delisa and chronic neck and back pain. Pt takes norco and ultram PRn for pain and doing ok Pt failed neurontin. Pt denies any saddle area paresthesia . Pt also takes ibuprofen PRn and doing ok pain Pt has fibromyal delisa and chronic neck and back pain. Pt takes norco and ultram PRn for pain and doing ok Pt failed neurontin. Pt denies any saddle area paresthesia . Pt also takes ibuprofen PRn and doing ok ADD Patient has ADD. Patient has inattentive type. Patient feels scatterbrained. Patient feel poor focus and difficulty completing tasks. Patient states that Adderall is helping with symptoms. Patient feels more focused. Pt feels more energy. Patient denies any headache, dry mouth, headache, chest pain. Patient denies any appetite loss. scalp1 Pt c/o intermitt ent scalp itching with red spots for several months Pt denies any alopecia Pt denies any dandruff. Pt denies any bleeding or scabbing. sHe denies any scabbing or bleeding. Pt states that she tried steroid shampoo which really helped. mammo1 Pt has asymmetry of left breast on screening exam and she had diagnostic mammo and ultrasound done which was benign Pt denies any breast pain or nodule or retractions or discoloration. ADD Pt has ADD Pt ta kes adderall and doing ok , pt needs refill. Pt feels more focused Pt denies any side effects pain Pt has fibromyal delisa and chronic neck and back pain. Pt takes norco and ultram PRn for pain and doing ok Pt failed neurontin. Pt denies any saddle area paresthesia . Pt also takes ibuprofen PRn and doing ok scalp1 Pt c/o intermitt ent scalp itching with red spots for several months Pt denies any alopecia Pt denies any dandruff. Pt denies any bleeding or scabbing. sHe denies any scabbing or bleeding breast1 Pt had screening mammo done which showed left breast nodule and asymmetry. Pt denies any palpable breast nodule or pain. ADD Pt has ADD Pt ta kes adderall and doing ok , pt needs refill. Pt feels more focused Pt denies any side effects pain Pt has fibromyal delisa and chronic neck and back pain. Pt takes norco and ultram PRn for pain and doing ok Pt failed neurontin. Pt denies any saddle area paresthesia . Pt also takes ibuprofen PRn and doing ok constipation1 Pt has chronic a nd recurrent constipation Pt denies any abd pain pt denies any GI bleeding Pt takes milk of magnesium which works well Pt denies any bloating ADD Pt has ADD Pt ta kes adderall and doing ok , pt needs refill. Pt feels more focused Pt denies any side effects pain Pt has fibromyal delisa and chronic neck and back pain. Pt takes norco and ultram PRn for pain and doing ok Pt failed neurontin. Pt denies any saddle area paresthesia . Pt also takes ibuprofen PRn and doing ok insomani1 Pt has chronic i nsomnia Pt takes ambien qhs PRn and doing ok Pt needs it refilled acne Additional infor mation: Pt has been using retin A topical and doxycycline and cystic acne resolved Pt is happy with meds. ADD Pt has ADD Pt ta kes adderall and doing ok , pt needs refill. Pt feels more focused Pt denies any side effects pain Pt has fibromyal delisa and chronic neck and back pain. Pt takes norco and ultram PRn for pain and doing ok Pt failed neurontin. Pt denies any saddle area paresthesia . Pt also takes ibuprofen PRn and doing ok pain Pt has fibromyal delisa and chronic neck and back pain. Pt takes norco and ultram PRn for pain and doing ok Pt failed neurontin. Pt denies any saddle area paresthesia . Pt also takes ibuprofen PRn and doing ok acne1 Pt has some cyst ic acne around chin recently which is painful recently ,Pt denies any bleeding or drainage ADD Pt has ADD Pt ta kes adderall and doing ok , pt needs refill pain Pt has fibromyal delisa and chronic neck and back pain. Pt takes norco and ultram PRn for pain and doing ok Pt failed neurontin. Pt denies any saddle area paresthesia . ADD Pt has ADD. Pt d oing ok with adderall. Pt needs refill. Pt feels more focused and less distracted insomnia1 Pt has chronic i nsomnia Pt takes ambien qhs PRN and doing ok. Pt denies any snoring sick Pt has sinus pre ssure, purulent sinus drainage, mild sore throat, mild cough for two weeks Pt notices some yellow nasal drainage and phlegm Pt denies any ear pain Pt has mild low grade temp around 100 at home. physical Pt needs annual physical Pt has fibromyalgia Pt takes ultram and norco PRN for pain and doing ok. Pt denies any worsening pain Pt has ADD Pt doing ok with adderall. Pt has COPD Pt still smoking Pt denies any hemoptysis. Pt takes combivent and albuterol PRn and doing ok. Pt has insomnia Pt takes ambien qhs PRN and doing ok pain Pt has fibromyal delisa and chronic neck and back pain. Pt takes norco and ultram PRn for pain and doing ok Pt failed neurontin. Pt denies any saddle area paresthesia . ADD Pt has ADD. Pt d oing ok with adderall. Pt needs refill. COPD1 Pt has COPD Pt u ses combivent and she rarely needs to use albuterol. Pt denies any hemoptysis pain Pt has fibromyal delisa and chronic neck and back pain. Pt takes norco and ultram PRn for pain and doing ok Pt failed neurontin. Pt denies any saddle area paresthesia . ADD Pt has ADD. Pt t akes adderall and doing ok Pt feels more focused insomnia1 Pt has chronic i nsomnia Pt takes ambien qhs PRn and doing ok. Pt needs it refilled back pain1 Pt c/o acute ons et of muscle pain medial to left scapular area for two weeks. Pt denies any injury Pt c/o sharp and dull pain. Pt states that the pain is worse with activity but seems better with resting but still around 7/10 Pt has been using heating pad and getting massage to the area which helps slightly pain Pt has fibromyal delisa and chronic neck and back pain. Pt takes norco and ultram PRn for pain and doing ok Pt failed neurontin. Pt denies any saddle area paresthesia . ADD Pt has ADD. pt d oing ok with adderall. Pt feels more focused. Pt denies any side effects pain Pt has fibromyal delisa and chronic neck and back pain. Pt takes norco and ultram PRn for pain and doing ok Pt failed neurontin. Pt denies any saddle area paresthesia . ADD Pt has ADD. pt d oing ok with adderall. Pt feels more focused. Pt denies any side effects constipation1 Pt has chronic c onstipation. Pt denies any abd pain, blood in stool, etc Pt takes OTC meds PRn. Pt denies any abd pain. Pt has BM every 2-3 days with hard stool pain Pt has fibromyal delisa and chronic neck and back pain. Pt takes norco and ultram PRn for pain and doing ok Pt failed neurontin. Pt denies any saddle area paresthesia . ADD ADD, inattentive type. Stable with Adderall. Refill. Told patient Adderall may cause chest pain, palpitation, headache, appetite loss, GI issue, dry mouth. If unable to tolerate, let me know ,Pt agrees. Told patient Adderall is habit-forming. Told patient to take drug holidays on the weekend if possible. Patient understand the addictive nature of Adderall. Patient denies using illicit drug or any unprescribed medication. Patient does not mix alcohol with medication. [place] Patient reports improvement of daily function with Adderall. insomnia1 Pt has chronic i nsomnia Pt takes ambien qhs PRn and doing ok. Pt denies any snoring thrombocytopenia1 Pt has high pl atelet. Pt had repeat lab done and platelet is ok. Pt denies any bruising. hematuria1 Pt denies any ur inary symptoms Repeat UA clear skin Pt c/o ingrown h air and skin cystic infection right inguinal area for several days Pt notices pain but no drainage. Pt denies any fever anxiety1 Pt has fibromyal delisa and chronic neck and back pain. Pt takes norco and ultram PRn for pain and doing ok Pt failed neurontin. Pt denies any saddle area paresthesia . ADD ADD, inattentive type. Stable with Adderall. Refill. Told patient Adderall may cause chest pain, palpitation, headache, appetite loss, GI issue, dry mouth. If unable to tolerate, let me know ,Pt agrees. Told patient Adderall is habit-forming. Told patient to take drug holidays on the weekend if possible. Patient understand the addictive nature of Adderall. Patient denies using illicit drug or any unprescribed medication. Patient does not mix alcohol with medication. Patient [place]. [place] Patient reports improvement of daily function with Adderall. pain Pt has fibromyal delisa and chronic neck and back pain. Pt takes norco and ultram PRn for pain and doing ok Pt failed neurontin. Pt denies any saddle area paresthesia . ADD ADD, inattentive type. Stable with Adderall. Refill. Told patient Adderall may cause chest pain, palpitation, headache, appetite loss, GI issue, dry mouth. If unable to tolerate, let me know ,Pt agrees. Told patient Adderall is habit-forming. Told patient to take drug holidays on the weekend if possible. Patient understand the addictive nature of Adderall. Patient denies using illicit drug or any unprescribed medication. Patient does not mix alcohol with medication. Patient [place] socially. [place] Patient reports improvement of daily function with Adderall. ADD ADD, inattentive type. Stable with Adderall. Refill. Told patient Adderall may cause chest pain, palpitation, headache, appetite loss, GI issue, dry mouth. If unable to tolerate, let me know ,Pt agrees. Told patient Adderall is habit-forming. Told patient to take drug holidays on the weekend if possible. Patient understand the addictive nature of Adderall. Patient denies using illicit drug or any unprescribed medication. Patient does not mix alcohol with medication. Patient [place] socially. [place] Patient reports improvement of daily function with Adderall. insomnia1 Pt has chronic i nsomnia Pt takes ambien qhs PRN and doing ok ,Pt needs refill pain Pt has fibromyal delisa and chronic neck and back pain. Pt takes norco and ultram PRn for pain and doing ok Pt failed neurontin. Pt denies any saddle area paresthesia . pain Pt has fibromyal delisa and chronic neck and back pain. Pt takes norco and ultram PRn for pain and doing ok Pt failed neurontin. Pt denies any saddle area paresthesia . Pt wants ibuprofen refilled . platelet1 Pt has history o f high platelet Pt denies any bleeding or bruising. HLP Pt has history o f HLP Pt is working on diet and exercise. ADD ADD, inattentive type. Stable with Adderall. Refill. Told patient Adderall may cause chest pain, palpitation, headache, appetite loss, GI issue, dry mouth. If unable to tolerate, let me know ,Pt agrees. Told patient Adderall is habit-forming. Told patient to take drug holidays on the weekend if possible. Patient understand the addictive nature of Adderall. Patient denies using illicit drug or any unprescribed medication. Patient does not mix alcohol with medication. Patient [place] socially. [place] Patient reports improvement of daily function with Adderall. ADD ADD, inattentive type. Stable with Adderall. Refill. Told patient Adderall may cause chest pain, palpitation, headache, appetite loss, GI issue, dry mouth. If unable to tolerate, let me know ,Pt agrees. Told patient Adderall is habit-forming. Told patient to take drug holidays on the weekend if possible. Patient understand the addictive nature of Adderall. Patient denies using illicit drug or any unprescribed medication. Patient does not mix alcohol with medication. Patient [place] socially. [place] Patient reports improvement of daily function with Adderall. pain Pt has fibromyal delisa and chronic neck and back pain. Pt takes norco and ultram PRn for pain and doing ok Pt failed neurontin. hematurai1 Pt has chronic h ematuria. Pt denies any urinary symptoms Pt had negative CT scan and cystoscopy and evaluation by urology. Pt denies any urinary symptoms emphysema1 Pt has emphysema .Pt denies any acte sob ,Pt denies any hemoptysis. Pt is able to machine pecan picker combivent after PA COPD1 Pt has COPD. Pt takes combivent and she uses albuterol 1-2 per week .Pt denies any hemoptysis, worsening sob or cough. Pt still smoking . Pt failed incruse, airduo, symbicort in the past. Pt states that she is not able to machine pecan picker combivent due to insurance pain Pt has fibromyal delisa and chronic neck and back pain. Pt takes norco and ultram PRn for pain and doing ok Pt failed neurontin. insomnia1 Pt has chronic i nsomnia Pt takes ambien qhs PRn an doing ok Pt needs refill. Pt denies any snoring. ADD ADD, inattentive type. Stable with Adderall. Refill. Told patient Adderall may cause chest pain, palpitation, headache, appetite loss, GI issue, dry mouth. If unable to tolerate, let me know ,Pt agrees. Told patient Adderall is habit-forming. Told patient to take drug holidays on the weekend if possible. Patient understand the addictive nature of Adderall. Patient denies using illicit drug or any unprescribed medication. Patient does not mix alcohol with medication. Patient [place] socially. [place] Patient reports improvement of daily function with Adderall. Physical Pt needs annual physical Pt has fibromyalgia Pt takes ultram and norco PRN for pain and doing ok. Pt denies any worsening pain Pt has ADD Pt doing ok with adderall. Pt has COPD Pt still smoking Pt denies any hemoptysis. Pt takes combivent and albuterol PRn Pt has insomnia Pt takes ambien qhs PRN and doing ok, Pt has chronic constipation Pt takes metamucil and doing ok. P denies any abd pain ADD ADD, inattentive type. Stable with Adderall. Refill. Told patient Adderall may cause chest pain, palpitation, headache, appetite loss, GI issue, dry mouth. If unable to tolerate, let me know ,Pt agrees. Told patient Adderall is habit-forming. Told patient to take drug holidays on the weekend if possible. Patient understand the addictive nature of Adderall. Patient denies using illicit drug or any unprescribed medication. Patient does not mix alcohol with medication. Patient [place] socially. [place] Patient reports improvement of daily function with Adderall. insomnia1 Pt has chronic i nsomnia Pt takes ambien qhs PRn an doing ok Pt needs refill. Pt denies any snoring. pain Pt has fibromyal delisa and chronic neck and back pain. Pt takes norco and ultram PRn for pain and doing ok Pt failed neurontin. pain Pt has fibromyal delisa and chronic neck and back pain. Pt takes norco and ultram PRn for pain and doing ok Pt failed neurontin. ADD Patient has ADD. Patient has inattentive type. Patient feels scatterbrained. Patient feel poor focus and difficulty completing tasks. Patient states that Adderall is helping with symptoms. Patient feels more focused. Pt feels more energy. Patient denies any headache, dry mouth, headache, chest pain. Patient denies any appetite loss. COPD Pt has COPD. Pt takes combivent and albuterol PRn. Pt uses albuterol 1-2 per day. Pt still smoking Pt is noncompliant with pulmonary referral Pt denies any hemoptysis worsening sob or cough ADD Patient has ADD. Patient has inattentive type. Patient feels scatterbrained. Patient feel poor focus and difficulty completing tasks. Patient states that Adderall is helping with symptoms. Patient feels more focused. Pt feels more energy. Patient denies any headache, dry mouth, headache, chest pain. Patient denies any appetite loss. constipation Pt has been usin g metamucil daily and her constipation resolved. Pt states that she feels great since starting metamucil and she has been having regular BM daily without constipation or any GI bleeding. Her bloating also resolved. Pt also lost some weight and she feels more energy COPD Pt has COPD Pt c ontinues to smoke. Pt denies any hemoptysis, worsening sob or cough. Pt uses combivent and ventolin 1-2 per day. Pt needs ventolin refilled pain Pt has fibromyal delisa and chronic neck and back pain. Pt takes norco and ultram PRn for pain and doing ok Pt failed neurontin. pain Pt has fibromyal delisa and chronic neck and back pain Pt c/o acute onset of worsening right side low back pain two weeks ago and she went to ER and had lab done which showed typical hematuria. Pt denies any sciatica or any loss of bowel or bladder control. Pt denies any saddle area paresthesia. Pt was given skelaxin which helped her back pain very much. Pt wants refill of skelaxin. Pt denies any injury. Pt denies any urinary symptoms or fever. Pt feels right lower back muscle spasm. Skelaxin is not covered ADD Patient has ADD. Patient has inattentive type. Patient feels scatterbrained. Patient feel poor focus and difficulty completing tasks. Patient states that Adderall is helping with symptoms. Patient feels more focused. Pt feels more energy. Patient denies any headache, dry mouth, headache, chest pain. Patient denies any appetite loss. constipation Pt c/o feeling c onstipated for several weeks. Pt has BM every 2-3 days with hard stool. Pt denies any nausea, vomiting, diarrhea, blood in stool or abd pain Pt feels mild bloating Pt usually has BM every day back pain1 Pt has fibromyal delisa and chronic neck and back pain Pt c/o acute onset of worsening right side low back pain two weeks ago and she went to ER and had lab done which showed typical hematuria. Pt denies any sciatica or any loss of bowel or bladder control. Pt denies any saddle area paresthesia. Pt was given skelaxin which helped her back pain very much. Pt wants refill of skelaxin. Pt denies any injury. Pt denies any urinary symptoms or fever. Pt feels right lower back muscle spasm fibromyalgia Pt has fibromyal delisa Pt takes norco and ultram and ibuprofen PRN for pain and doing ok Pt denies any worsening pain.. Pt has chronic neck and back pain. Pt failed neurontin. Pt denies any neuropathy insomnia Pt has chronic i nsomnia pt takes ambien qhs and doing ok. Pt denies any snoring or any trouble with breathing at night ADD Patient has ADD. Patient has inattentive type. Patient feels scatterbrained. Patient feel poor focus and difficulty completing tasks. Patient states that Adderall is helping with symptoms. Patient feels more focused. Pt feels more energy. Patient denies any headache, dry mouth, headache, chest pain. Patient denies any appetite loss. ADD Patient has ADD. Patient has inattentive type. Patient feels scatterbrained. Patient feel poor focus and difficulty completing tasks. Patient states that Adderall is helping with symptoms. Patient feels more focused. Pt feels more energy. Patient denies any headache, dry mouth, headache, chest pain. Patient denies any appetite loss. fibromyalgia Pt has fibromyal delisa Pt takes norco and ultram and ibuprofen PRN for pain and doing ok Pt denies any worsening pain.. Pt has chronic neck and back pain. Pt failed neurontin. Pt denies any neuropathy sinus congestion1 pt c/o nasal c ongestion, postnasal drainage, productive coughing with green phlegm for one week. Pt did have some sore throat which resolved. Pt denies any fever. Pt has COPD. tobacco Pt has been jordan guillen and she is able to cut down cigarette to 4-5 per day. ADD Patient has ADD. Patient has inattentive type. Patient feels scatterbrained. Patient feel poor focus and difficulty completing tasks. Patient states that Adderall is helping with symptoms. Patient feels more focused. Pt feels more energy. Patient denies any headache, dry mouth, headache, chest pain. Patient denies any appetite loss. fibromyalgia Pt has fibromyal delisa Pt takes norco and ultram and ibuprofen PRN for pain and doing ok Pt denies any worsening pain.. Pt has chronic neck and back pain. Pt failed neurontin. Pt denies any neuropathy tobacco1 Pt wants to try to quit smoking Pt smokes more than 1/2 PPD ,Pt denies any hemoptysis. Pt already has emphysema. ADD Pt has ADD. pt d oing ok with adderall. Pt feels more focused . Pt denies any chest pain or palpitation. fibromyalgia Pt has fibromyal delisa Pt takes norco and ultram and ibuprofen PRN for pain and doing ok Pt denies any worsening pain.. Pt has chronic neck and back pain. Pt failed neurontin COPD Pt has COPD. Pt continues to smoke. Pt uses combivent. Pt uses albuterol 2-3 per day. Pt denies any hemoptysis, cough. Pt is noncompliant with pulmonary referral insomnia1 Pt has chronic i nsomnia ,Pt denies any snoring Pt takes ambien qhs and doing ok COPD1 Pt has COPD. Pt continues to smoke. Pt uses combivent. Pt states that she needs albuterol refilled. Pt is very vague about how much ventolin she uses daily. Pt states that someday she does not use any and some day she uses twice per day ADD Pt has ADD. pt d oing ok with adderall. Pt feels more focused . Pt denies any chest pain or palpitation. fibromyalgia Pt has fibromyal delisa Pt takes norco and ultram and ibuprofen PRN for pain and doing ok Pt denies any worsening pain.. Pt has chronic neck and back pain. Pt failed neurontin platelet1 thrombocytosis r esolved on recent lab. Pt denies any bruising or bleeding hematuria1 pt has persisten t hematuria. Pt had negative CT scan and cystoscope by urology. Pt denies any UTI symptoms. ADD Pt has ADD. pt d oing ok with adderall. Pt feels more focused . Pt denies any chest pain or palpitation. fibromyalgia1 Pt has fibromyal delisa Pt takes norco and ultram and ibuprofen PRN for pain and doing ok Pt denies any worsening pain.. Pt has chronic neck and back pain. Pt failed neurontin CODP1 Pt has COPD Pt d enies any hemoptysis, worsening sob or cough Pt takes combivent daily pt uses albuterol 2-3 per week. Pt still smoking hematuria1 pt denies any ur inary symptoms Pt had normal cysto and also CT scan Pt denies any incontinence. hematuria1 Pt has hematuria . Pt denies any UTI symptoms. pt states that she was on her period. platelet1 Pt has high plat elet. Pt denies any bruising or bleeding. insomnia Pt has insomnia Pt takes ambien qhs PRn and doing ok Pt denies any snoring. ADD Pt has ADD. pt d oing ok with adderall. Pt feels more focused . Pt denies any chest pain or palpitation. fibromyagia1 Pt has fibromyal delisa Pt takes norco and ultram and ibuprofen PRN for pain and doing ok Pt denies any worsening pain.. Pt has chronic neck and back pain. COPD Pt has COPD Pt t akes combivent and albuterol PRN Pt uses albuterol 4-5 per week Pt denies any hemoptysis Pt denies any acute sob. Pt still smoking ADD Pt has ADD. pt d oing ok with adderall. Pt feels more focused . fibromyalgia Pt has fibromyal delisa Pt takes norco and ultram and ibuprofen PRN for pain and doing ok Pt denies any worsening pain HLP Pth as HLP Pt is noncompliant with lab work Pt is not on any diet ADD Patient has ADD. Patient has inattentive type. Patient feels scatterbrained. Patient feel poor focus and difficulty completing tasks. Patient states that Adderall is helping with symptoms. Patient feels more focused. Pt feels more energy. Patient denies any headache, dry mouth, headache, chest pain. Patient denies any appetite loss. sick Pt c/o fever as high as 100.1, sinus congestion, purulent nasal drainage, coughing, diarrhea for one week. Pt went to ER and she had negative COVID-19, flu and strep throat testing. Pt had negative chest x ray and also normal CBC. Pt states that she was given some breathing treatment and sent home Pt denies any sob. Pt wants abx fibromyalgia Patient has fibr omyalgia. . Patient takes [place] and tramadol as needed for pain. Patient denies any worsening pain. Pt has chronic neck and back pain. Pt denies any sciatica or any loss of bladder control. pt failed NSAID insomnia1 Patient has been insomnia. Patient takes Ambien nightly as needed. Patient denies any trouble with breathing at night. ADD Patient has ADD. Patient has inattentive type. Patient feels scatterbrained. Patient feel poor focus and difficulty completing tasks. Patient states that Adderall is helping with symptoms. Patient feels more focused. Pt feels more energy. Patient denies any headache, dry mouth, headache, chest pain. Patient denies any appetite loss. fibromyalgia1 Patient in for n ausea. Patient takes [place] and tramadol as needed for pain. Patient here for pain. Patient denies any worsening pain. fibormyalgia1 Patient in for n ausea. Patient takes [place] and tramadol as needed for pain. Patient here for pain. Patient denies any worsening pain. Pt failed neurontin COPD1 Pt has COPD Pt s till smokes. Pt denies any hemoptysis Pt takes combivent daily and she uses albuterol 1-2 per week ,PT denies any acute sob ADD Patient has ADD. Patient has inattentive type. Patient feels scatterbrained. Patient feel poor focus and difficulty completing tasks. Patient states that Adderall is helping with symptoms. Patient feels more focused. Pt feels more energy. Patient denies any headache, dry mouth, headache, chest pain. Patient denies any appetite loss. pain Pt has fibromyal delisa pt has neck and back pain pt doing ok with norco, ultram and ibuprofen PRN Pt denies any sciatica or worsening pain. Pt denies any loss of bladder control ADD Patient has ADD. Patient has inattentive type. Patient feels scatterbrained. Patient feel poor focus and difficulty completing tasks. Patient states that Adderall is helping with symptoms. Patient feels more focused. Pt feels more energy. Patient denies any headache, dry mouth, headache, chest pain. Patient denies any appetite loss. ADD Patient has ADD. Patient has inattentive type. Patient feels scatterbrained. Patient feel poor focus and difficulty completing tasks. Patient states that Adderall is helping with symptoms. Patient feels more focused. Pt feels more energy. Patient denies any headache, dry mouth, headache, chest pain. Patient denies any appetite loss. COPD Pt has COPD .Pt takes combivent and albuterol PRn. Pt uses albuterol 2-3 per week Pt denies any hemoptysis ,worsening sob or cough Pt is noncompliant with pulmonary referral pain Pt has fibromyal delisa pt has neck and back pain pt doing ok with norco, ultram and ibuprofen PRN Pt denies any sciatica or worsening pain. Pt denies any loss of bladder control insomnia1 Pt has chronic i nsomnia Pt takes ambien qhs and doing ok Pt denies any snoring fibromyalgia1 Pt has fibromyal delisa pt has neck and back pain pt doing ok with norco, ultram and ibuprofen PRN Pt denies any sciatica or worsening pain. ADD ADD, inattentive type. Continue Adderall. Told patient Adderall may cause chest pain, palpitation, headache, appetite loss, GI issue, dry mouth. If unable to tolerate, let me know ,Pt agrees. Told patient Adderall is habit-forming. Told patient to take drug holidays on the weekend if possible. Patient understand the addictive nature of Adderall. Patient denies using illicit drug or any unprescribed medication. Patient does not mix alcohol with medication. [place]. [place] Patient reports improvement of daily function with Adderall. physical Pt needs annual physical, Pt has fibromyalgia. Pt takes norco and ultram and doing ok Pt failed neurontin .Pt has insomnia Pt takes ambien qhs PRn and doing ok Pt has ADD Pt takes adderall. Pt has COPD Pt takes combivent and she uses albuterol 2-3 per week Pt denies any hemoptysis worsening or cough .Pt has not done lab yet. Pt denies any other complaints fibromyalgia1 Pt has fibromyal delisa pt has neck and back pain pt doing ok with norco, ultram and ibuprofen PRN Pt denies any sciatica or worsening pain ADD ADD, inattentive type. Continue Adderall. Told patient Adderall may cause chest pain, palpitation, headache, appetite loss, GI issue, dry mouth. If unable to tolerate, let me know ,Pt agrees. Told patient Adderall is habit-forming. Told patient to take drug holidays on the weekend if possible. Patient understand the addictive nature of Adderall. Patient denies using illicit drug or any unprescribed medication. Patient does not mix alcohol with medication. Patient only drinks socially. [place]. Patient reports improvement of daily function with Adderall. insomnia1 Pt doing ok with ambien. Pt needs refilled gallbladder1 Pt denies any ab dominal pain Pt had normal HIDA. Pt told me surgeon told her gallbladder is ok. Pt never did upper GI fibromyalgia1 Pt has fibromyal delisa pt has neck and back pain pt doing ok with norco, ultram and ibuprofen PRN Pt denies any sciatica or worsening pain ADD Patient has ADD. Patient has inattentive type. Patient feels scatterbrained. Patient feel poor focus and difficulty completing tasks. Patient states that Adderall is helping with symptoms. Patient feels more focused. Pt feels more energy. Patient denies any headache, dry mouth, headache, chest pain. Patient denies any appetite loss. COPD1 Pt has COPD Pt t akes combivent and albuterol PRn Pt continues to smoke .Pt needs albuterol refilled .Pt needs to use albuterol 2-3 per week .Pt denies any hemoptysis pain Pt has fibromyal delisa pt has neck and back pain pt doing ok with norco, ultram and ibuprofen PRN Pt denies any sciatica or worsening pain. Pt failed lyrica and neurontin.. Pt states that 30 ibuprofen is not enough. ADD Patient has ADD. Patient has inattentive type. Patient feels scatterbrained. Patient feel poor focus and difficulty completing tasks. Patient states that Adderall is helping with symptoms. Patient feels more focused. Pt feels more energy. Patient denies any headache, dry mouth, headache, chest pain. Patient denies any appetite loss. hematuria1 Pt has history o f hematuria. Pt denies any UTi symptoms Pt told me she had negative UA at [facility] office weight gain1 pt has been gain ing weight Pt has not done lab yet Pt is not very physically active. COPD1 Pt has severe CO PD Pt takes combivent .Pt uses albuterol 2-3 times per week Pt denies any hemoptysis, worsening sob or cough. pt failed airduo, aerospan and spiriva and incruse Pt still smoking but less ADD Pt has ADD Pt do ing ok with adderall Pt feels more focused fibromyalgia1 Pt takes ibuprof en, ultram and norco and doing ok pt denies any worsening pain fibromyalgia1 Pt has fibromyal delisa pt takes norco and ultram Pt failed neurontin Pt denies any worsening pain COPD1 Pt has COPD Pt c ontinues to smoke pt denies any hemoptysis, worsening sob or cough Pt takes combivent and also ventolin PRN Pt states that she uses ventolin 1-2 per week. ADD Patient has ADD. Patient has inattentive type. Patient feels scatterbrained. Patient feel poor focus and difficulty completing tasks. Patient states that Adderall is helping with symptoms. Patient feels more focused. Pt feels more energy. Patient denies any headache, dry mouth, headache, chest pain. Patient denies any appetite loss. insomnia1 Pt has chronic i nsomnia Pt takes ambien qhs PRn. Pt doing ok pt denies any snoring or any trouble with breathing at night fibromyalgia1 Pt has fibromyal delisa, Pt takes norco and ultram and doing ok. Pt failed Neurontin. Pt failed NSAID ADD Patient has ADD. Patient has inattentive type. Patient feels scatterbrained. Patient feel poor focus and difficulty completing tasks. Patient states that Adderall is helping with symptoms. Patient feels more focused. Pt feels more energy. Patient denies any headache, dry mouth, headache, chest pain. Patient denies any appetite loss. GERD1 Pt states that G ERd resolved. Pt did not do upper GI. Pt is off omeprazole. pt denies any abd pain pink eye1 pt notices mild pinkness medial corner of right eye for 4 weeks Pt denies any vision change, Pt denies any itching or eye pain or drainage fatigue1 Pt has fatigue a nd ADD, Pt denies any snoring or any trouble with breathing at night ,Pt doing ok with adderall. abd pain1 Pt has mild gERD and right upper quadrant abd pain ,Pt has not done upper GI yet PT did see Dr. burkett and was told gallbladder ok for now No need for removal. Her pain is better with omeprazole hematuria1 Pt denies any UT i symptoms Pt had normal cysto per patient recently by urology fibromyalgia1 Pt has fibromyal delisa. Pt failed neurontin, Pt takes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 deficit Weight management Related to Att ention deficit Quit smoking. Related to Encnt r for general adult medical exam w/o abnormal findings Special diet education Related t o Body mass index (BMI) 26.0-26.9, adult Quit smoking Related to Emphy sema Stop smoking Related to Abdom inal pain Special diet education Related t o Body mass index (BMI) 26.0-26.9, adult Quit smoking Related to Atten tion deficit Stop smoking Related to Fibro myalgia Quit smoking Related to Hemat uria Quit smoking Related to Hemat uria Quit smoking Related to Fibro myalgia Weight management Related to Emp hysema Quit smoking Related to Emphy sema Quit smoking Related to Insom eduard Quit smoking Related to Fibro myalgia Perform monthly self breast examinations. Related to Encntr for general adult medical exam w/o abnormal findings Quit smoking. Related to Encnt r for general adult medical exam w/o abnormal findings Prescribed Activity and Exercise Education Related to Dietary Surveillance and Counseling Prescribed Diet Educ ation/Lifestyle Education Regarding Diet Related to Dietary Surveillance and Counseling Increase physical activity Relat ed to Insomnia Quit smoking Related to Insom eduard Weight management Related to Ins omnia Prescribed Activity and Exercise Education Related to Dietary Surveillance and Counseling Prescribed Diet Educ ation/Lifestyle Education Regarding Diet Related to Dietary Surveillance and Counseling Quit smoking Related to Atten tion deficit Stop smoking Related to Fibro myalgia Assessments Type Assessment Date assessment Attention deficit assessment Fibromyalgia assessment Primary insomnia Mental Status Date Cognitive Assessment Orientation - [place] ed to time, place, person, situation.
--- OUTSIDE RECORDS SUMMARY | 2024-11-08 02:18 | XMS_ITS | Data Portability ---
Author Organization [facility]it [facility] , [facility] Address [address] [place] [address] Care Team Providers Care Muck Farmer Name Role Phone [facility] Eeler Assessment No assessment recorded. Plan of Treatment Reminders Order Date Submit Date Provider Last Modified By Organization Details Last Modified Time Details Appointments None recorded. Lab culture, urine 2021 022 Adept Cloud [facility], [address] [place], [address], 2 21:04:45 herpes simplex, culture, unspecified specimen - Left Labia Minora HSV Cx 2022 023 Adept Cloud [facility], [address] [place], [address], 3 12:42:02 urinalysis, dipstick 2022 023 [facility], [facility] [place], [address], 3 12:25:41 culture, urine 2022 023 Adept Cloud [facility], [address] [place], [address], 3 12:42:03 test, urine 2022 023 [facility], [facility] [place], [address], 3 12:25:41 bacterial vaginosis + vaginitis panel, vaginal 2022 023 [facility] Rodney, [address] [place], [address], 3 14:11:[address] referral 2021 022 [email or web address] Not available 2 14:37:03 Procedures None recorded. Surgeries None recorded. Imaging None recorded. Medication Orders Diflucan 150 mg tablet 2021 022 [email or web address] 1 [facility][id number], [address] [place], [place], [id number], 3 11:59:37 Valtrex 500 mg tablet 2022 023 [facility]11398, [address] [place], [place], [id number], 3 12:25:48 Bactrim DS 800 mg-160 mg tablet 2022 023 [facility] #23861, [address] [place], [place], [id number], 4 14:37:49 valacyclovi r 500 mg tablet 2023 024 [email or web address] [facility] #37161, [address] [facility], [place], [id number], 4 16:34:53 clobetasol 0.05 % topical cream 2023 024 [facility], [address] [place], [place], [id number], 4 15:46:52 Patient TargetsNo targets recorded. Patient InstructionsNo instructions recorded. 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 spp neg negati ve normal Not Available [address], [address], 12/08/2022 14:11:28 12/08/19 23 12/08/2022 VAGIN ITIS PLUS STD PANEL paul glabrata C. gla neg negati ve normal Not Available [address], [address], 12/08/2022 14:11:28 12/08/19 23 12/08/2022 VAGIN ITIS PLUS STD PANEL trichomonas vaginalis CV/TV TRICH neg negati ve normal Not Available [address], [address], 12/08/2022 14:11:28 12/08/19 23 12/08/2022 VAGIN ITIS PLUS STD PANEL chlamydia trachomatis CT neg negati ve normal This repor t is inten ded for us in clini henrique monit oring and manag ement of viet faust. It is not inten ded for use in medic al-le gal appli catio n. Not Available [address], [address], 12/08/2022 14:11:28 12/08/19 23 12/08/2022 VAGIN ITIS PLUS STD PANEL neisseria gonorrhoeae GC neg negati ve normal This repor t is inten ded for us in clini henrique monit oring and manag ement of viet faust. It is not inten ded for use in medic al-le gal appli catio n. Not Available [place] [address] [place], [address], 12/08/2022 14:11:28 12/08/19 23 12/13/2022 HERPE S SIMPL EX VIRUS CULTU RE W/RFL TO TYPIN G herpes simplex virus culture w/rfl to typing SEE NOTE HERPE S SIMPL EX VIRUS CULTU RE W/RFL TO TYPIN G Micro Numbe r: [id number] Test Statu s: Final Speci men Sourc e: Not given Speci men Quali ty: Adequ ate HSV Cultu re: Not [place] inocencio Not Available [address] [place], [address], 12/13/2022 12:42:02 12/08/19 23 12/13/2022 CULTU RE, URINE , ROUTI NE culture, urine, routine SEE NOTE CULTU RE, URINE , ROUTI NE Micro Numbe r: [id number] Test Statu s: Final Speci men Sourc e: Urine Speci men Quali ty: Adequ ate Resul t: No Growt h Not Available [facility] [address] [address] [place], [address], 12/13/2022 12:42:03 12/08/19 23 12/07/2022 pregn brielle test, urine HCG negati ve Not Available [address], [address], 12/06/2022 10:36:59 12/08/19 23 12/07/2022 urina lysis , dipst ick Leukocytes Negati ve Not Available [address], [address], 12/06/2022 10:36:51 12/08/19 23 12/07/2022 urina lysis , dipst ick Nitrite negati ve Not Available [place] [address], [place], [address], 12/06/2022 10:36:51 12/08/19 23 12/07/2022 urina lysis , dipst ick Urobilinogen .2 Not Available [address], [place], [address], 12/06/2022 10:36:51 12/08/19 23 12/07/2022 urina lysis , dipst ick Protein 30 Not Available [place] [address], [place], [address], 12/06/2022 10:36:51 12/08/19 23 12/07/2022 urina lysis , dipst ick pH 5.0 Not Available [address], [place], [address], 12/06/2022 10:36:51 12/08/19 23 12/07/2022 urina lysis , dipst ick Blood Modera te Not Available [place] [address], [place], [address], 12/06/2022 10:36:51 12/08/19 23 12/07/2022 urina lysis , dipst ick Specific [place] 1.030 Not Available [facility] [address], [place], [address], 12/06/2022 10:36:51 12/08/19 23 12/07/2022 urina lysis , dipst ick Ketone Negati ve Not Available [place] [address], [place], [address], 12/06/2022 10:36:51 03/0112/07/2022 urina lysis , dipst ick Bilirubin Negati ve Not Available [address], [place], [address], 12/06/2022 10:36:51 12/08/19 23 12/07/2022 urina lysis , dipst ick Glucose Negati ve Not Available [address], [place], [address], 12/06/2022 10:36:51 12/08/19 23 12/07/2022 urina lysis , dipst ick Appearance Slight ly Cloudy Not Available [address], [place], [address], 12/06/2022 10:36:51 12/08/19 23 12/07/2022 urina lysis , dipst ick Color Yellow Not Available [address], [address], 12/06/2022 10:36:51 Result Notes None recorded. Problems Name Problem SNOMED Code Status Onset Date Resolution Date Notes Provider Name and Address Organization Details Recorded Time Asthma 684885089 Completed 201502/11/2019 Asthma, type unspecif ied; Progress : Stable Added By: Mariah Walker Add to Current Problems : NO ProblemS tatus: Resolve Asthma, type unspecif ied; Location : None Progress : Stable Added By: Mariah Walker Add to Current Problems : YES ProblemS tatus: Current Unspecif ied asthma, uncompli cated; Progress : Stable Added By: Mariah Walker Add to Current Problems : YES ProblemS tatus: Current Other asthma; Progress : Stable Added By: Mariah Walker Add to Current Problems : YES ProblemS tatus: Current Not Available [facility] 2 19:47:38 Leukorrh ea 612907450 Completed 201302/11/2019 Vaginal Discharg e; Location : None Progress : Stable Added By: Lilia Blackwell Add to Current Problems : YES ProblemS tatus: Current Vaginal Discharg e; Progress : Stable Added By: Lilia Blackwell Add to Current Problems : NO ProblemS tatus: Resolve Not Available [facility] 2 19:47:36 Dysuria 21574431 Completed 201604/10/2017 Burning with urinatio n; Location : None Progress : Stable Added By: Corinna Presley Add to Current Problems : NO ProblemS tatus: Resolve Dysuria; Progress : Stable Added By: Corinna Presley Add to Current Problems : NO ProblemS tatus: Resolve Not Available [facility] 2 19:47:28 Vulvovag initis 02743708 Completed 201304/30/2015 Vagintiu s Unspecif ied; Location : None Progress : Stable Added By: Tika Braun Add to Current Problems : YES ProblemS tatus: Resolve Not Available [facility] 2 19:47:40 At high risk of sexually transmit inocencio infectio n 634773199 Completed 201508/07/2016 STD Screenin g; Severity : Moderate Progress : Stable Added By: Mariah Walker Add to Current Problems : NO ProblemS tatus: Resolve Not Available [facility] 1 05:16:16 Syphilis test finding 380263351 Completed 201508/07/2016 Encounte r for screenin g for infectio ns with a predomin antly sexual mode of transmis noel; Progress : Stable Added By: Mariah Walker Add to Current Problems : NO ProblemS tatus: Resolve STD Screenin g; Location : None Progress : Stable Added By: Mariah Walker Add to Current Problems : YES ProblemS tatus: Resolve Not Available [facility] 2 19:47:40 Acute vaginiti s 93187880 Completed 201508/07/2016 Acute vaginiti s; Progress : Stable Added By: Mariah Walker Add to Current Problems : NO ProblemS tatus: Resolve Not Available [facility] 2 19:47:35 Back problem 062318484 Completed 201509/05/2016 Flank pain; Progress : Stable Added By: Lilia Sawyer Add to Current Problems : NO ProblemS tatus: Resolve Not Available [facility] 2 19:47:31 Low back pain 316991332 Completed 201502/11/2019 Low back pain; Progress : Stable Added By: Darlyn Liang Add to Current Problems : NO ProblemS tatus: Resolve Low back pain; Location : None Progress : Stable Added By: Darlyn Liang Add to Current Problems : YES ProblemS tatus: Current Not Available [facility] 2 19:47:43 Vitamin D deficien cy 51496010 Completed 201602/11/2019 Vitamin D deficien cy, unspecif ied; Progress : Stable Added By: Corinna Presley Add to Current Problems : NO ProblemS tatus: Resolve Vitamin D deficien cy, unspecif ied; Location : None Progress : Stable Added By: Corinna Presley Add to Current Problems : YES ProblemS tatus: Current Not Available [facility] 2 19:47:28 Vaginiti s and vulvovag initis Completed 201508/07/2016 Bacteria l vaginiti s; Progress : Stable Added By: Mariah Walker Add to Current Problems : NO ProblemS tatus: Resolve Not Available [facility] 2 19:47:38 Uses intraute rine contrace ption 563341846 Completed 201402/11/2019 Patient with intraute rine contrace ptive device (IUD); Location : None Severity : Moderate Progress : Stable Added By: Lizz Stanley Add to Current Problems : YES ProblemS tatus: Current Patient with intraute rine contrace ptive device (IUD); Severity : Moderate Progress : Stable Added By: Lizz Stanley Add to Current Problems : NO ProblemS tatus: Resolve Not Available [facility] 1 05:16:27 Problem Notes None recorded. Procedures Surgical History Date Name Laterality Status Provider Name and Address Organization Details Recorded Time 01/09/20 Most Recent Mammogram completed [facility] 03/08/2024 14:40:21 05/12/20 21 Date of Last Pap Smear completed Cici Rizvi [facility] 05/10/2022 22:43:49 05/09/20 06 left salpingo-oophore ctomy completed MANUEL Cherry [address] [facility], [place], [address], [facility] 12/06/2022 10:39:28 05/09/20 06 laparoscopic excision of cyst of left ovary completed MANUEL Cherry [address] [facility], [place], [address], [facility] 12/06/2022 10:39:41 Imaging Results None recorded. Procedure Notes None recorded. Medical Equipment None Reported. Allergies No known drug allergies Medications Name Sig Start Date Stop Date Status Note LastModified by Organization Details LastModified Time azithromy michaela 250 mg tablet 12/07 completed Not Available Not Available Not Available ibuprofen 800 mg tablet TAKE 1 TABLET BY MOUTH EVERY 6 TO 8 HOURS WITH FOOD NEEDED active Not Available Not Available No t Available fluconazo le 150 mg tablet TAKE 1 TABLET BY MOUTH NOW 12/07 completed Not Available Not Available Not Available hydrocodo ne 5 mg-acetam inophen 325 mg tablet TAKE 1 TABLET BY MOUTH EVERY 6 HOURS NEEDED FOR PAIN active Not Available Not Available No t Available tretinoin 0.025 % topical cream APPLY TOPICALL Y TO THE AFFECTED AREA EVERY DAY active Not Available Not Available No t Available prednison e 20 mg tablet TAKE 3 TABLETS BY MOUTH EVERY DAY 12/07 completed Not Available Not Available Not Available clobetaso l 0.05 % topical cream APPLY A THIN LAYER TO THE AFFECTED AREA(S) BY TOPICAL ROUTE 2 TIMES PER DAY NEEDED 2023 active Not Available Not Available Not Avai lable valacyclo vir 500 mg tablet Take 1 tablet every day by oral route. 2023 active Not Available Not Available Not Avai lable sulfameth oxazole 800 mg-trimet hoprim 160 mg tablet TAKE 1 TABLET BY MOUTH EVERY 12 HOURS WITH MEALS FOR 3 DAYS 03/08 completed Not Available Not Available Not Available tramadol 50 mg tablet TAKE 1 TABLET BY MOUTH EVERY 6 HOURS NEEDED active Not Available Not Available No t Available terconazo le 80 mg vaginal supposito ry Insert 1 supposit ory(s) in vagina at bedtime for 3 days 12/20 completed Terconaz ole 80mg Vaginal Supposit ory RxNorm: 852010 Allow Substitu tion: True Refill Denied: No For Problem: Vaginal Discharg e Not Available Not Available Not Available nystatin- triamcino lone 100,000 unit/gram -0.1 % topical ointment Apply thin film to affected area bid 08/06 completed Nystatin /Triamci nolone 100,000U /1gm/0.1 % Topical Ointment RxNorm: 9046420 Allow Substitu tion: True Refill Denied: No Refill Note: Changed to Drug in Same Class Refill DateOccu rred: 07/29/20 14 For Problem: Vaginal Discharg e Not Available Not Available Not Available Flagyl 500 mg tablet 1 PO BID for 7 days. Do not drink alchohol while taking this medicati on. 04/10 completed Flagyl 500mg Tablet RxNorm: 672420 Allow Substitu tion: True Refill Denied: No Not Available Not Available Not Available doxycycli ne monohydra te 100 mg capsule TAKE 1 CAPSULE BY MOUTH EVERY DAY active Not Available Not Available No t Available cephalexi n 500 mg capsule TAKE 1 CAPSULE BY MOUTH EVERY 12 HOURS UNTIL ALL TAKEN 06/07 completed Not Available Not Available Not Available Cipro 500 mg tablet take 1 tablet (500 mg) by oral route 2 times per day for 5 days 06/07 completed Cipro 500 mg oral tablet RxNorm: 375817 Allow Substitu tion: True Refill Denied: No Edited by: Samuel patrick(Jake Ascencio) on 02/18/20 21 Stopped by: Samuel patrick(Jake Ascencio) on Not Available Not Available Not Available triamcino lone acetonide 0.1 % topical ointment Apply fingerti p amount to affected area bid with Nystatin cream dispensi ng 30gm tube to last about 30 days 11/04 completed Triamcin olone Acetonid e 0.1% Topical Ointment RxNorm: 7556190 Allow Substitu tion: True Refill Denied: No Not Available Not Available Not Available nystatin 100,000 unit/gram topical cream Apply a thin film with triamcin olone cream to affected area BID, dispensi ng a 30 gm tube to last about 30 days 11/04 completed Nystatin 100,000U /1gm Cream RxNorm: 131431 Allow Substitu tion: True Refill Denied: No Not Available Not Available Not Available dextroamp hetamine- amphetami ne 20 mg tablet TAKE 1 TABLET BY MOUTH 2 TIMES EVERY DAY BEFORE BREAKFAS T AND AT NOON active Not Available Not Available No t Available zolpidem 10 mg tablet TAKE 1 TABLET BY MOUTH EVERY DAY AT BEDTIME NEEDED active Not Available Not Available No t Available albuterol sulfate HFA 90 mcg/actua tion aerosol inhaler INHALE 2 PUFFS BY MOUTH EVERY 4 TO 6 HOURS NEEDED 03/08 completed Not Available Not Available Not Available lactulose 10 gram/15 mL oral solution TAKE 15 ML BY MOUTH 1 TO 2 TIMES DAILY NEEDED 03/08 completed Not Available Not Available Not Available ceftriaxo ne 1 gram/50 mL in dextrose (iso-osmo t) intraveno us piggyback Pt to bring to clinic for IM injectio n 10/05 completed Ceftriax one Sodium 1g Injectio n RxNorm: 7529951 Allow Substitu tion: True Refill Denied: No Not Available Not Available Not Available Cipro 02/09 completed Cipro 500mg Tablet RxNorm: 399903 Allow Substitu tion: True Refill Denied: No Refill DateOccu rred: 07/07/20 16 Not Available Not Available Not Available Vicodin prn 08/07 completed Vicodin 5mg/300m g Tablet RxNorm: 6827926 Allow Substitu tion: True Refill Denied: No Not Available Not Available Not Available Mirena 02/17 completed Mirena 52mg Intraute rine System RxNorm: 039566 Allow Substitu tion: True Refill Denied: No Refill DateOccu rred: 11/29/19 12 Edited by: adunn(Mundo Doan ) on 02/18/20 Stopped by: suni(Mundo Doan ) on 02/18/20 21 Not Available Not Available Not Available Ventolin HFA Inhale 2 puff(s) PRN 04/27 completed Ventolin HFA 90mcg/1a ctuation Oral Inhaler RxNorm: 705586 Allow Substitu tion: True Refill Denied: No Not Available Not Available Not Available Vitamin D3 50 mcg (2,000 unit) capsule Take 1 capsule( s) by mouth daily 07/25 completed Vitamin D3 2,000IU Capsules RxNorm: 968556 Allow Substitu tion: True Refill Denied: No Not Available Not Available Not Available Combivent Respimat 20 mcg-100 mcg/actua tion solution for inhalatio n INHALE 1 PUFF BY MOUTH FOUR TIMES DAILY. MAY TAKE ADDITION AL PUFFS NEEDED. NOT TO EXCEED 6 PUFFS IN 24 HOURS 03/08 completed Not Available Not Available Not Available [employer] COVID-19 Ag Self Test kit TEST DIRECTED TODAY 12/07 completed Not Available Not Available Not Available Vitals Date Recorded Body weight Provider Name an d Address Organization Details Last Updated DateTime 06/07/2022 22566.38 g Est[facility] [employer] [facility] IV 06/07/2022 11:46:50 Date Recorded Body mass index (BMI) Body height Provider Name and Address Organization Details Last Updated DateTime 06/07/2022 24.5 kg/m2 157.48 [facility] [employer] [facility] 06/07/2022 11:46:54 Date Recorded Body temperature Provider Name a nd Address Organization Details Last Updated DateTime 06/07/2022 97 [degF] [facility] [employer] [facility] 06/07/2022 11:46:56 Date Recorded Body height Provider Name an d Address Organization Details Last Updated DateTime 12/07/2022 157.48 cm Evita Aviles [place] [employer] [facility] IV 12/07/2022 11:54:31 Date Recorded Body mass index (BMI) Body weight Provider Name and Address Organization Details Last Updated DateTime 12/07/2022 25.2 kg/m2 18980.31 g Evita Aviles [facility] [employer] [place] [facility] IV 12/07/2022 11:54:55 Date Recorded Body height Provider Name an d Address Organization Details Last Updated DateTime 03/08/2024 157.48 cm Felicia Ferire [facility] [facility] 03/08/2024 14:34:40 Date Recorded Body mass index (BMI) Body weight Provider Name and Address Organization Details Last Updated DateTime 03/08/2024 25.1 kg/m2 32687.87 g Felicia Freire [facility] IV 03/08/2024 14:34:51 Date Recorded Body temperature Provider Name a nd Address Organization Details Last Updated DateTime 03/08/2024 97.9 [degF] Felicia Freire [facility] [facility] 03/08/2024 14:34:58 Date Recorded Systolic blood pressure Diastolic blood pressure Provider Name and Address Organization Details Last Updated DateTime 06/07/2022 110 mm[Hg] 58 mm[Hg] Lanettera Saucedo [facility] [employer] IV 06/07/2022 11:54:16 Date Recorded Systolic blood pressure Diastolic blood pressure Provider Name and Address Organization Details Last Updated DateTime 12/07/2022 118 mm[Hg] 80 mm[Hg] Evita Aviles [facility] [employer] [place] [facility] IV 12/07/2022 11:59:15 Date Recorded Systolic blood pressure Diastolic blood pressure Provider Name and Address Organization Details Last Updated DateTime 03/08/2024 118 mm[Hg] 76 mm[Hg] Felicia Freire [facility] [employer] [facility]win IV 03/08/2024 14:36:31 Social History Question Answer Notes LastModified by Organizat ion Details LastModified Time Tobacco Smoking Status Former Smoker Felicia lilly [facility] [employer] [facility] IV 03/08/2024 14:41:50 What Is Your Level Of Alcohol Consumption? None Information not available 03/08/2024 If You Are , What Was Your Level Of Alcohol Consumption Prior To ? None Information not available 03/08/2024 Are You Blind Or Do You Have Difficulty Seeing? No Information not available 03/08/2024 Are You Deaf Or Do You Have Serious Difficulty Hearing? No Information not available 03/08/2024 What Type Of Diet Are You Following? REGULAR Information not available 03/08/2024 When Did You Quit Smoking? 1-5yearssinc elastcigaret te Information not available 03/08/2024 How Many Children Do You Have? 4 [email or web address] Information not available 12/07/2022 What Is Your Relationship Status? Single Information not available 12/07/2022 Are You Sexually Active? No [email or web address] Information not available 12/07/2022 How Much Tobacco Do You Smoke? 0.5 PPD Information not available 03/08/2024 Do You Use Any Illicit Or Recreational Drugs? No Information not available 03/08/2024 Do You Or Have You Ever Used Any Other Forms Of Tobacco Or Nicotine? No Information not available 03/08/2024 Sex: Unknown Functional Status Question Answer Note LastModified by Organizat ion Details LastModified Time What is your exercise level? Occasional Information not available 03/08/2024 Mental Status None recorded. Family History Relationship Description Onset Age of this Age Resolved Age Notes LastModified by Organization Details LastModified Time Mother Malignant tumor of breast [email or web address] Not available 11/2021 22:44:39 Sister Malignant tumor of breast [email or web address] Not available 11/2021 22:44:39 Father Malignant tumor of colon [email or web address] Not available 11/2021 22:44:53 Medical History Condition Response Other Cancer N High Blood Pressure N Colon Cancer N Cytomegalovirus N Hyperthyroidism N MRSA N Breast Cancer N Herpes (HSV) N Blood Transfusion N Lung Cancer N Depression N Hypothyroidism N Incontinence N Panic Attacks N Neurological Disorder N Deep Vein Thrombosis N Anxiety Disorder N Autoimmune disease N Arthritis N Tuberculosis/Positive PPD N Shingles N Polycystic Ovarian Syndrome N Cervical Cancer N Hematuria N Chlamydia N Stroke N Varicosities N Seasonal allergies N Crohn's Disease N Alzheimer's/Dementia N COPD/Emphysema N Endometriosis N HPV/Genital Warts N IBS (Irritable Bowel Syndrome) N History of Abnormal Pap N High Cholesterol N Liver Disease N Kidney Infection N Fibromyalgia N Ulcer N Kidney Disease N HIV N Gallbladder disease N Sickle Cell Disease/Trait N Von Willebrand disease N ADD/ADHD N Eating Disorder N Anemia N Diabetes Mellitus (non-insulin dependent ) N Multiple Sclerosis N Ovarian Problems N Gonorrhea N Frequent Urinary Tract infections N Osteopenia N Headaches/migraines N GERD (reflux) N Ovarian Cancer N Diabetes (insulin dependent) N Seizures/Epilepsy N Fibroids N Asthma N Heart Attack N Lupus N Endometrial Cancer N Rubella N Blood Clotting Disorder N Bipolar Disorder N Diabetes Mellitus (during ) N Ulcerative Colitis N Hepatitis N Heart Disease N Pulmonary Embolism N RPR N Chicken Pox N Osteoporosis N Gynecological History Statement/Question Response Date of Last Colonoscopy Flow Light Date of LMP 02/17/2024 Most Recent Bone Density Date of Last Pap Smear 02/17/2021 Duration of Flow (days) 4 Most Recent Mammogram 01/09/2024 Current Control Method None Age at Menarche 12 Obstetrics History GPAL:G 4 P 4 0 0 4 Type Value Full Term 4 Living 4 Total 4 Past Encounters Encounter ID Performer Location Encounter Start Date Encounter Closed Date Diagnosis/Indication Diagnosis SNOMED-CT Code Diagnosis ICD10 Code Diagnosis Note [id number] RACHANA CHAVES CNM [facility] [address] [place] [address] 06/07/2022 11:35:16 06/08/2022 12:29:49 Lesion of vulva 654705662 N90.89 not present on exam, discussed follow up with symptoms. concerned with blackheads /hair follicals in groin. discussed vulvar dermatolog ist. normal on exam today. Vaginitis [id number] N76.0 yeast on exam, used monistat 3 at home, diflucan sent today. 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 HSV culture collected and sent. Pt educated on considerat ion for daily suppressiv e therapy of valtrex d/t the frequency of cold sore outbreak, and can increase dosing for if/when an outbreak occurs. Rx sent. Further POC pending lab result review. Pt states understand ing of POC. Blood in urine [id number] R31.9 UA notable for 3+ blood in urine, SG 1.030, nitrate/le uks negative. UPT is negative. Vaginal and Urine cx collected and sent. Pt educated on pushing p.o. water intake, avoidance of sugary drinks, and on AZO PRN. Further POC pending lab result review. Rx for Bactrim DS sent. Pt educated on when to notify HCP/go to ER. Pt states understand ing of POC. 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 On exam blocked skene gland noted. Advise to use warm compresses as this should help decrease gland in size. Will also start using clobetasol to help with lichens. Pt voices understand ing. Lichen sclerosus [id number] L90.0 48 y.o. with vulvar lichen sclerosis. C/O little white bumps cyst that cause intense itching. white patches noted on exam consisted with lichens. - Reviewed dx, likely auto-immun e etiology, and tx with topical high-poten cy steroid- Clobetasol ointment 0.05% twice a day as needed. 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, has been taking valacyclov ir for supression therpay.Re fills sent Health Concerns Section Related Observation LastModified by Organization Jenna lund LastModified Time None Recorded Concern Status LastModified by Organization Details LastModified Time None Recorded Advance Directives Directive None Recorded Payers Encounter Date Sequence Insurance Name Policy Number Policy Padilla Covered Member ID Padilla Member ID Guarantor Name 06/07/2022 1 [facility] ON OR AFTER 04/08/21 (MEDICAID REPLACEMENT - HMO) Lorenza Hanna [id number] Lorenza Hanna 12/07/2022 1 [facility] - [facility] ON OR AFTER 21 (MEDICAID REPLACEMENT - HMO) Lorenza Hanna [id number] Lorenza Hanna 03/08/2024 1 [facility] - DOS ON OR AFTER 21 (MEDICAID REPLACEMENT - HMO) Lorenza Hanna [id number] Lorenza Hanna Notes Date Note Type Note Provider Name and Address Organization Details Recorded Time 06/07/2022 text/html Vaginal/Vulvar ProblemReported bypatient.Location:[facility] Duration:present for 1-2 weeks; present for 2-4 weeksNotes:patient says its gone now black heads in underware line RACHANA CHAVES CNM [address] [facility], [place], [address], [employer] 06/08/2022 12:29:42 12/07/2022 text/html Pt presents with c/o vaginal discomfort. Pt reports having a h/o cold sores that occur once per month. Pt also notes having vaginal cyst that pops up and eventually drains on it's own or has to be lanced in the office. Pt states she felt a lump or cyst like structure prior to this morning and now feels like it ruptured on it's own and is draining. Pt denies being on her cycle, having a fever, urinary frequency, incomplete emptying, dysuria or n/v. Pt Last Pap: 02/2021 NILM, HPV neg. Pap Hx: 11/2007 ASCUS, HPV +, 03/2011 NILM, 11/2013 NILM, HPV neg, 05/2016 NILM, HPV neg, 02/2021 NILM, HPV neg. Last STD testing in 2019 and WNL. Last urine cx: 05/2022 WNL. Pt's daughter also has cold sores and has a Rx for Acycolvir. Pt requesting tx at this time. Pt has no other concerns. MANUEL Cherry [address] [facility], [place], [address], [employer] [facility] 12/07/2022 16:55:11 03/08/2024 text/html Pelvic PainRepor inocencio bypatient.Location:ri ght; left Onset/Timin-2 weeks Duration:constant Quality:sharp; stabbing Severity:pain level 5/10 Context:LMP (02/17/2024); history of ovarian cysts Associated Symptoms:vaginal itching or irritation patient presents with cyst like she had at her last appointemnt. Patient states they are very tender especially when wiping. Was tested for HSV last visit and it was negative. Patient also reports intense itching. Denies any abdominal or pelvic pain. BEN BROOKS, RACHEL [address] [place], [address], [facility] 03/08/2024 16:37:14 OBGyn Episode No OBEpisode recorded.
[2024-11-08 11:06] VITALS: BP 116/59; PULSE 61; RESP 20; TEMP 36.2; O2SAT 99
[2024-11-08 11:10] LABS: BEDSIDEPREGUCG Negative (Negative)
[2024-11-08] MEDS: LACTATED RINGERS 1,000 ML 150 ML IV CONT (11:17)
--- NOTE | 2024-11-08 11:41 | PM.IMHP ---
H&P: HPI History of Present Illness Date/Time: 11/08/24 11:41 Chief Complaint: Family history of colorectal cancer. Narrative: This patient has family history of colorectal cancer. Her father had colorectal cancer when he was 50. The patient is asymptomatic from a GI standpoint except for chronic constipation. There is no rectal bleeding or change in Review of Systems Review of Systems: All systems reviewed & are unremarkable except as noted in HPI and below PMFSH Past Medical History Medical History Fibromyalgia Endometriosis Asthma Surgical History Surgical History H/O: hysterectomy Family History Family History Father Hypertension Family history of elevated blood lipids Family history of congestive heart failure Family history of lung cancer Family history of coronary artery disease Social History Social History Smoking status: Current every day smoker Tobacco type: e-cigarettes/vaping Alcohol intake: never Substance use type: marijuana Gender identity (if verbalized by the patient): Female Meds Home Medications and Allergies Home Medications ?Medication ?Instructions ?Recorded ?Confirmed ?Type dextroamphetamine-amphetamine 20 20 mg PO DAILY 11/04/19 11/08/24 History mg tablet hydrocodone 5 mg-acetaminophen 325 1 tablet PO DIRECTED PRN Pain 11/04/19 10/31/24 History mg tablet tramadol 50 mg tablet 50 mg PO DIRECTED 11/04/19 11/08/24 History zolpidem 10 mg tablet 10 mg PO HS 11/04/19 11/08/24 History valacyclovir 500 mg tablet 500 mg PO DAILY 11/04/23 11/08/24 History bisacodyl 5 mg tablet 5 mg PO ONCE #4 tabs 11/01/24 Rx polyethylene glycol 3350 17 238 g PO ONCE #238 grams 11/01/24 Rx gram/dose oral powder (Miralax) acetaminophen 500 mg tablet 500 mg PO ONCE 11/08/24 11/08/24 History (Acetaminophen Extra Strength) Allergies Allergy/AdvReac Type Severity Reaction Status Date / Time No Known Allergies Allergy Unknown Verified 11/08/24 11:02 Vital Signs Vital Signs - 24 hr 11/08/24 11:06 Temperature 97.2 F L Pulse Rate 61 Respiratory Rate 20 Blood Pressure 116/59 L Pulse Oximetry 99 Oxygen Delivery Room Air Exam Const: General: cooperative and healthy appearing Resp: Effort & Inspection: normal respiratory effort and able to speak in complete sentences Auscultation: clear to auscultation bilaterally Cardio: Rate: regular rate Rhythm: regular rhythm GI: Inspection: normal to inspection GI Palp: No No hepatosplenomegaly present Auscultation: normal bowel sounds Rectal Exam: deferred Skin: General skin exam: normal color Psych: Appearance: grossly normal Mental Status: mental status grossly normal Assessment and Plan Assessment and plan (1) Family history of colorectal cancer: Code(s): Z80.0 - Family history of malignant neoplasm of digestive organs Status: Acute Assessment and Plan: The patient is deemed a good candidate for the procedure. Consent signed. Will proceed.
--- NOTE | 2024-11-08 12:09 | P.PNAN_ITS ---
Anes - Initial Pre Proc Eval Procedure: Operation Date: 11/08/24 12:30 Proposed Procedures p Screening Colonoscopy - Shen Collazo MD Date/Time: 11/08/24 12:09 Surgeon: Shen Collazo MD Pre Op Diagnosis: Screening for malignant neoplasm Patient Data Age: 48 Gender: F Height: 1.57 m Weight: 61.2 kg Last Vital Signs Temp 36.2 C L 11/08/24 11:06 Pulse 61 11/08/24 11:06 Resp 20 11/08/24 11:06 BP 116/59 L 11/08/24 11:06 Pulse Ox 99 11/08/24 11:06 O2 Del Method Room Air 11/08/24 11:06 Allergies Allergy/AdvReac Type Severity Reaction Status Date / Time No Known Allergies Allergy Unknown Verified 11/08/24 11:02 Home Medications ?Medication ?Instructions ?Recorded ?Confirmed ?Type dextroamphetamine-amphetamine 20 20 mg PO DAILY 11/04/19 11/08/24 History mg tablet hydrocodone 5 mg-acetaminophen 325 1 tablet PO DIRECTED PRN Pain 11/04/19 10/31/24 History mg tablet tramadol 50 mg tablet 50 mg PO DIRECTED 11/04/19 11/08/24 History zolpidem 10 mg tablet 10 mg PO HS 11/04/19 11/08/24 History valacyclovir 500 mg tablet 500 mg PO DAILY 11/04/23 11/08/24 History bisacodyl 5 mg tablet 5 mg PO ONCE #4 tabs 11/01/24 Rx polyethylene glycol 3350 17 238 g PO ONCE #238 grams 11/01/24 Rx gram/dose oral powder (Miralax) acetaminophen 500 mg tablet 500 mg PO ONCE 11/08/24 11/08/24 History (Acetaminophen Extra Strength) Laboratory Tests 11/08/24 11:08 POC Urine HCG, Qual Negative (Negative) Patient hx anesthesia problems: none Family hx anesthesia problems: none Results Review: All pre-operative results and documents have been reviewed as part of the pre- operative evaluation. [facility] Past Medical History Medical History Fibromyalgia Endometriosis Asthma Surgical History Surgical History H/O: hysterectomy Family History Family History Father Hypertension Family history of elevated blood lipids Family history of congestive heart failure Family history of lung cancer Family history of coronary artery disease Social History Social History Smoking status: Current every day smoker Tobacco type: e-cigarettes/vaping Alcohol intake: never Substance use type: marijuana Gender identity (if verbalized by the patient): Female Anes - Eval Final PreProcedure Day of Procedure 11/08/24 12:09 Patient weight: normal Heart: regular rate and rhythm Lungs: clear to auscultation Airway: Mallampati scale class 1 Neurological: alert and oriented Last oral intake: >/= 8 hours ASA classification: III Emergent: no Anesthetic plan: proceed Anesthesia type and monitoring: general GIVS and standard monitoring Results Review: All pre-operative results and documents have been reviewed as part of the pre- operative evaluation. Informed Consent: The patient's anesthetic plan and its attendant risks and benefits were discussed with the patient/family/POA. Questions were solicited and answers provided to the satisfaction of the patient/family/POA.
[2024-11-08 12:30] VITALS: BP 101/56; PULSE 74; RESP 20; O2SAT 100
[2024-11-08 12:40] VITALS: BP 118/76; PULSE 67; RESP 20; O2SAT 96
[2024-11-08 12:50] VITALS: BP 121/69; PULSE 63; RESP 23; O2SAT 100
== END 2024-11-08 13:07 | disposition home or self-care (01) ==
PROVIDERS: Anesthesiology; PCP Emergency Medicine; Visit Provider Internal Medicine Gastroenterology
PROC: 0DJD8ZZ Inspection of Lower Intestinal Tract, Via Natural or Artificial Opening Endoscopic (ICD-10-PCS; CPT 45378; principal; 2024-11-08 12:30)
DX: Z12.11 Encounter for screening for malignant neoplasm of colon (principal); K64.8 Other hemorrhoids; J45.909 Unspecified asthma, uncomplicated; N80.9 Endometriosis, unspecified; M79.7 Fibromyalgia; F17.290 Nicotine dependence, other tobacco product, uncomplicated; Z79.891 Long term (current) use of opiate analgesic; Z98.890 Other specified postprocedural states; Z80.0 Family history of malignant neoplasm of digestive organs; Z80.1 Family history of malignant neoplasm of trachea, bronchus and lung; Z82.49 Family history of ischemic heart disease and other diseases of the circulatory system
CPT/HCPCS: 45378; J2003; J2704; J7120

== ENCOUNTER 2024-11-13 08:50 | Emergency (ER) | payer OTHER, SELFPAY ==
[2024-11-13 09:00] VITALS: BP 125/63; PULSE 65; RESP 18; TEMP 36.4; O2SAT 100
--- NOTE | 2024-11-13 09:19 | ED_ITS ---
HPI - URI/Sore Throat General Chief Complaint: Upper Respiratory Infection Stated Complaint: Sore Throat/Fever Time Seen by Provider: 11/13/24 09:23 Source: patient and RN notes reviewed Mode of arrival: ambulatory Limitations: no limitations History of Present Illness HPI Narrative: 48-year-old female presents concern for 2 day history of sore throat, hoarse voice with congestion and cough. She reports postnasal drainage. She reports she is taking ibuprofen. She denies fever. Reports body aches MD elicited complaint: sore throat Related Data Home Medications ?Medication ?Instructions ?Recorded ?Confirmed ?Last Taken ?Type dextroamphetamine-amphetamine 20 20 mg PO DAILY 11/04/19 11/08/24 11/07/24 History mg tablet hydrocodone 5 mg-acetaminophen 325 1 tablet PO DIRECTED PRN Pain 11/04/19 10/31/24 Unknown History mg tablet tramadol 50 mg tablet 50 mg PO DIRECTED 11/04/19 11/08/24 11/07/24 History zolpidem 10 mg tablet 10 mg PO HS 11/04/19 11/08/24 11/07/24 History valacyclovir 500 mg tablet 500 mg PO DAILY 11/04/23 11/08/24 11/07/24 History acetaminophen 500 mg tablet 500 mg PO ONCE 11/08/24 11/08/24 11/08/24 09:30 History (Acetaminophen Extra Strength) bisacodyl 5 mg tablet,delayed mg 11/13/24 Unknown History release Allergies Allergy/AdvReac Type Severity Reaction Status Date / Time No Known Allergies Allergy Unknown Verified 11/13/24 09:02 Review of Systems Review of Systems: CONSTITUTIONAL: Denies malaise, chills, sweats, or fever. EYES: Denies visual changes, redness, or discharge. ENT: Reports rhinorrhea, congestion, postnasal drainage and sore throat. CARDIOVASCULAR: Denies chest pain, palpitations, or edema. RESPIRATORY: Denies cough. Denies dyspnea. GASTROINTESTINAL: Denies abdominal pain, nausea, vomiting, diarrhea SKIN: Denies rash or itching. MUSCULOSKELETAL: Reports myalgia. NEUROLOGIC: Denies headache. All systems reviewed & are unremarkable except as noted in HPI and below PMFSH Past Medical History Medical History Fibromyalgia Endometriosis Asthma Surgical History Surgical History H/O: hysterectomy Family History Family History Father Hypertension Family history of elevated blood lipids Family history of congestive heart failure Family history of lung cancer Family history of coronary artery disease Social History Social History Smoking status: Current every day smoker Tobacco type: e-cigarettes/vaping Alcohol intake: never Substance use type: marijuana Living arrangements: alone Gender identity (if verbalized by the patient): Female Comments At time of signature, agree with nursing past medical, surgical, social and family history. There is no relevant family history pertinent to the presenting complaint Exam Narrative: GENERAL: Well-appearing, well-nourished, and in no acute distress. HEAD: Normocephalic EYES: PERRLA, conjunctivae clear ENT: Nares clear, turbinates edematous and erythematous, clear discharge. Mucous membranes moist. TM pearly sellers with sharp light reflex bilaterally; no tragal tenderness. Oropharynx not erythematous without lesions. Tonsils not enlarged and without exudate, no drooling, no hoarseness, no trismus, uvula midline. NECK: Supple. No lymphadenopathy CHEST: Clear to auscultation, breath sounds equal. No wheezing, rhonchi, rales, or stridor. No respiratory distress, speaks in full sentences. HEART: Regular rate and rhythm. No murmur heard. SKIN: Warm, dry, no rash. NEURO: Alert and oriented x3. PSYCH: Normal mood and affect Course Course Emergency Course: Patient is aware of diagnosis, understands and agrees to treatment plan. Anticipatory guidance given. Patient agrees to follow-up as directed and is aware of reasons to seek care at the emergency department. Portions of this record may have been created with voice recognition software Level of Care: Express Care Visit Vital Signs Vital signs: Vital Signs Temperature 97.5 F L 11/13/24 09:00 Pulse Rate 65 11/13/24 09:00 Respiratory Rate 18 11/13/24 09:00 Blood Pressure 125/63 11/13/24 09:00 Pulse Oximetry 100 11/13/24 09:00 Oxygen Delivery Room Air 11/13/24 09:00 Temperature 97.5 F L 11/13/24 09:00 Pulse Rate 65 11/13/24 09:00 Respiratory Rate 18 11/13/24 09:00 Blood Pressure 125/63 11/13/24 09:00 Pulse Oximetry 100 11/13/24 09:00 Oxygen Delivery Room Air 11/13/24 09:00 Reviewed. MDM - URI/Sore Throat MDM Narrative Medical decision making narrative: Differential diagnosis considered: Canales virus, strep pharyngitis, allergic rhinitis, upper respiratory tract infection, sinusitis, rhinosinusitis, nasopharyngitis. viral pharyngitis, otitis media, otitis externa, pneumonia, bronchitis, viral cough syndrome, viral syndrome, and influenza. Exam findings show no acute concerns or changes; patient is non-toxic appearing and is in no distress. Patient is appropriate for outpatient treatment and follow-up. Lab Data Attestation: I reviewed the patient's lab results. Critical Care Time Critical Care Time Critical Care Time: No Discharge Plan Discharge Clinical Impression: Influenza-like illness Patient Disposition: Home, Self-Care Condition: Stable Instructions: Viral Syndrome (ED) Additional Instructions: -Take strict precautions to prevent the spread of your virus. Be diligent about covering your cough (even when you are alone) and washing your hands frequently. -You may contagious until you have been symptom and/or fever free for 24 hours without fever reducing medicine -Alternate Ibuprofen and Tylenol for pain and fever relief (per package directions) -Drink plenty of fluid - drink fluid with electrolytes such as Gatorade or other oral re-hydration solution. Avoid caffeine, which can make dehydration worse. -Get plenty of rest to help your body heal. -Use a cool mist humidifier for chest and nasal congestion. -Eat RAW honey or use cough drops to ease throat discomfort -Do not smoke or expose children to secondhand smoke -Wash your hands frequently. -Please follow-up with your primary care doctor in the next 1-2 days if your symptoms do not improve. -If you have any worsening of symptoms or any other concerns please go to the ED immediately. -Please take medications as prescribed and continue taking your home medications as usual. Patient Language: [place] Leonean Prescriptions: New guaifenesin [Mucinex] 1,200 mg tablet extended release 12hr 1,200 mg PO Q12H PRN (Reason: cough) Qty: 20 0RF No Action hydrocodone-acetaminophen 5-325 mg tablet 1 tablet PO DIRECTED PRN (Reason: Pain) tramadol 50 mg tablet 50 mg PO DIRECTED dextroamphetamine-amphetamine 20 mg tablet 20 mg PO DAILY zolpidem 10 mg tablet 10 mg PO HS valacyclovir 500 mg tablet 500 mg PO DAILY bisacodyl 5 mg tablet,delayed release (DR/EC) polyethylene glycol 3350 [Miralax] 17 gram/dose powder 238 g PO ONCE Qty: 238 0RF Rx Instructions: FOLLOW INSTRUCTIONS FROM PROVIDER bisacodyl 5 mg tablet 5 mg PO ONCE Qty: 4 0RF Rx Instructions: FOLLOW INSTRUCTIONS FROM PROVIDER acetaminophen [Acetaminophen Extra Strength] 500 mg tablet 500 mg PO ONCE Follow-up/Referrals: Pierre Ramon MD [Primary Care Provider] - Time of Disposition: 09:32
[2024-11-13 09:36] LABS: EDCOVIDSCREEN Negative (Negative); EDINFLUASCREEN Negative (Negative); EDINFLUBSCREEN Negative (Negative); EDSTREPNEGPOS1 Negative (Negative)
== END 2024-11-13 09:43 | disposition home or self-care (01) ==
PROVIDERS: Emergency Provider Nurse Practitioner; PCP Emergency Medicine
DX: J11.1 Influenza due to unidentified influenza virus with other respiratory manifestations (principal); Z20.822 Contact with and (suspected) exposure to COVID-19; F17.290 Nicotine dependence, other tobacco product, uncomplicated; F12.90 Cannabis use, unspecified, uncomplicated; J45.909 Unspecified asthma, uncomplicated; M79.7 Fibromyalgia; N80.9 Endometriosis, unspecified
CPT/HCPCS: 87081; 87426; 87804; 87880; 99213; G0463

== ENCOUNTER 2024-11-22 08:57 | Emergency (ER) | payer OTHER, SELFPAY ==
--- NOTE | 2024-11-22 08:58 | ED.URI ---
HPI - URI/Sore Throat General Chief Complaint: Upper Respiratory Infection Stated Complaint: Sinus/Ear Irritation Time Seen by Provider: 11/22/24 08:58 Source: patient Mode of arrival: ambulatory Limitations: no limitations History of Present Illness HPI Narrative: Patient is a 48-year-old female that presents with sinus pressure/pain and ear discomfort. Patient was here / for similar symptoms and has no improvement with mucinex. Denies any fever, chills vomiting, diarrhea. Related Data Home Medications ?Medication ?Instructions ?Recorded ?Confirmed ?Last Taken ?Type dextroamphetamine-amphetamine 20 20 mg PO DAILY 11/04/19 11/08/24 11/07/24 History mg tablet hydrocodone 5 mg-acetaminophen 325 1 tablet PO DIRECTED PRN Pain 11/04/19 10/31/24 Unknown History mg tablet tramadol 50 mg tablet 50 mg PO DIRECTED 11/04/19 11/08/24 11/07/24 History zolpidem 10 mg tablet 10 mg PO HS 11/04/19 11/08/24 11/07/24 History valacyclovir 500 mg tablet 500 mg PO DAILY 11/04/23 11/08/24 11/07/24 History acetaminophen 500 mg tablet 500 mg PO ONCE 11/08/24 11/08/24 11/08/24 09:30 History (Acetaminophen Extra Strength) bisacodyl 5 mg tablet,delayed mg 11/13/24 Unknown History release Allergies Allergy/AdvReac Type Severity Reaction Status Date / Time No Known Allergies Allergy Unknown Verified 11/22/24 09:09 Review of Systems Review of Systems: All systems reviewed & are unremarkable except as noted in HPI and below Constitutional: Constitutional: Denies chills, Denies fatigue, Denies fever(s), Denies headache(s), Denies malaise and Denies weakness Eyes: Eyes: Denies blurry vision, Denies itchy eyes and Denies loss of vision ENT: Reports otalgia, Denies headache(s), Reports nasal congestion, Reports sinus pain, Reports sinus pressure and Denies sore throat Cardiovascular: Cardiovascular: Denies chest pain, Denies irregular heart rhythm and Denies dyspnea Respiratory: Respiratory: Reports cough and Denies dyspnea Gastrointestinal: Gastrointestinal: Denies abdominal pain, Denies diarrhea, Denies nausea and Denies vomiting Musculoskeletal: Musculoskeletal: Denies back pain, Denies myalgias and Denies arthralgias Integumentary/Breasts: Skin/Breast: Denies pruritus and Denies rash Neurologic: Denies headache(s), Denies loss of vision and Denies weakness Psychiatric: Psychiatric: Reports no additional psychiatric complaints Endocrine: Endocrine: Denies fatigue Allergic/Immunologic: Allergic/Immunologic: Denies itchy eyes PMFSH Past Medical History Medical History Fibromyalgia Endometriosis Asthma Surgical History Surgical History H/O: hysterectomy Family History Family History Father Hypertension Family history of elevated blood lipids Family history of congestive heart failure Family history of lung cancer Family history of coronary artery disease Social History Social History Smoking status: Current every day smoker Tobacco type: e-cigarettes/vaping Alcohol intake: never Substance use type: marijuana Living arrangements: alone Gender identity (if verbalized by the patient): Female Comments At time of signature, agree with nursing past medical, surgical, social and family history. There is no relevant family history pertinent to the presenting complaint. Exam Const: General: cooperative, healthy appearing, comfortable, no acute distress and well nourished Nutritional Appearance: well nourished Orientation/consciousness: patient oriented x3 Limitations: no limitations HENMT: Head: normal to inspection, normocephalic and atraumatic Ears: hearing grossly normal bilaterally, external ears normal, TM's normal bilaterally, EAC's normal and no periauricular adenopathy Face/Nose/Sinus: Normal external nose present, Abnormal mucous membranes and turbinates present erythematous bilateral and diffuse, normal facial exam, face symmetric and Facial tenderness on exam of face and sinuses Face and sinus: normal facial exam and face symmetric Mouth: Yes Normal oral and palatal mucosa present, Yes lip normal, Yes tongue normal, Yes Normal salivary glands and ducts present, Yes oropharynx normal and Yes moist mucous membranes Teeth and gingiva: dentition normal Throat: posterior oropharynx normal, tonsils normal and uvula midline Eyes: General: appearance normal, both eyes and all related structures Alignment and Position: alignment normal and position normal Periorbital: periorbital findings normal Eyelids: eyelids normal Pupils: Equal, round and reactive pupils present Neck: Neck: normal visual inspection, full ROM, no lymphadenopathy and supple Chest: Chest palpation & inspection: normal inspection of the chest and normal palpation of entire chest wall Resp: Effort & Inspection: normal respiratory effort and able to speak in complete sentences Auscultation: clear to auscultation bilaterally, no crackles, no rales, no rhonchi and no wheezes Cardio: Rate: regular rate Rhythm: regular rhythm Heart sounds: S1 normal heart sound present and S2 normal heart sound present GI: Inspection: normal to inspection Skin: General skin exam: normal color and no rashes or lesions noted Neuro: General: patient oriented x3 and moves all extremities Cranial nerves: Yes Equal, round and reactive pupils present Speech: normal speech Gait exam (Neuro): Normal gait present Extrem: General: normal to inspection, full ROM and no edema Psych: Appearance: grossly normal and well kempt Mental Status: mental status grossly normal Speech and movement: Normal speech and movement present Affect: normal affect Attitude: cooperative Thought process: Normal thought process present Course Course Emergency Course: Discharge instructions reviewed with patient, as well as provided in writing per nursing staff. The instructions also include specific and strict return/GO TO THE ER as well as f/u information. All questions have been answered, and the patient deny any further questions with discharge and discharge plan. Portions of this record may have been created with voice recognition software Level of Care: Express Care Visit Vital Signs Vital signs: Reviewed MDM - URI/Sore Throat MDM Narrative Medical decision making narrative: Pt well hydrated appearing, in no respiratory distress, hemodynamically stable. Recommend supportive care. The patient is stable at time of discharge the clinical impression was discussed and the patient was given the opportunity to ask questions, which were addressed as completely as possible given the information available at present. Anticipatory guidance and return to care precautions were discussed and the importance of primary care follow-up was stressed and encouraged. The patient voiced understanding of the plan, indications to return, and the need for follow-up. Differential diagnosis considered: Canales virus, strep pharyngitis, allergic rhinitis, upper respiratory tract infection, sinusitis, rhinosinusitis, nasopharyngitis. viral pharyngitis, otitis media, otitis externa, otitis effusion, foreign body, cerumen impaction, viral syndrome, and influenza.? Exam findings show no acute concerns or changes; patient is non-toxic appearing and is in no distress.? Patient is appropriate for outpatient treatment and follow-up.? Medical Records Attestation: I reviewed the patient's medical records. Discharge Plan Discharge Clinical Impression: Sinusitis Qualifiers: Sinusitis location: maxillary Chronicity: acute Recurrence: non-recurrent Qualified Code(s): J01.00 - Acute maxillary sinusitis, unspecified Patient Disposition: Home, Self-Care Condition: Stable Instructions: Sinusitis (ED) Additional Instructions: Take antibiotics as prescribed. -For pain/fever, you may take: Tylenol 650-1000mg by mouth every 4-6 hours. Do not exceed 4000mg in 24 hours. Advil (Ibuprofen) 600 mg by mouth every 6 hours. Do not exceed 2400mg in 24 hours. 8 AM: Tylenol 11 AM: Ibuprofen 2 PM: Tylenol 5 PM: Ibuprofen 8 PM: Tylenol 11 PM: Ibuprofen 2 AM: Tylenol 5 AM: Ibuprofen -Antihistamine medication such as Benadryl/Zyrtec at night and Claritin/Tiffany during the day can help improve symptoms. -Use Flonase twice a day for 5 days then daily to help reduce the inflammation and dry up your sinuses. -You can also use Sudafed behind the pharmacy counter(12 or 24 hour). Be sure to drink plenty of water with these medications at least 8 ounces with every dose and it is important to drink 8 to 10 glasses of water per day. Water is a natural decongestant -Eat and drink things that are easy to swallow, like tea or soup, or popsicles. -Oral rinses such as: Salt water gargles and/or may use topical anesthetic (eg. Chloraseptic spray) or lozenges to relieve dryness or throat pain). -Frequent hand washing or hand electric razor mechanic is one of the best ways to prevent spread of infection. -Using a vaporizer or humidifier at night will also help thin secretions and help with coughing up phlegm. -Follow up with primary care provider in 3-5 days if condition is not improving - For new or worsening symptoms go directly to the nearest ER Patient Language: Swedish Prescriptions: New fluticasone propionate [Flonase Allergy Relief] 50 mcg/actuation spray,suspension 1 spray intranasal DAILY Qty: 16 0RF Rx Instructions: administer into each nostril amoxicillin-pot clavulanate 875-125 mg tablet 1 tablet PO Q12H 10 Days Qty: 20 0RF No Action hydrocodone-acetaminophen 5-325 mg tablet 1 tablet PO DIRECTED PRN (Reason: Pain) tramadol 50 mg tablet 50 mg PO DIRECTED dextroamphetamine-amphetamine 20 mg tablet 20 mg PO DAILY zolpidem 10 mg tablet 10 mg PO HS valacyclovir 500 mg tablet 500 mg PO DAILY bisacodyl 5 mg tablet,delayed release (DR/EC) guaifenesin [Mucinex] 1,200 mg tablet extended release 12hr 1,200 mg PO Q12H PRN (Reason: cough) Qty: 20 0RF polyethylene glycol 3350 [Miralax] 17 gram/dose powder 238 g PO ONCE Qty: 238 0RF Rx Instructions: FOLLOW INSTRUCTIONS FROM PROVIDER bisacodyl 5 mg tablet 5 mg PO ONCE Qty: 4 0RF Rx Instructions: FOLLOW INSTRUCTIONS FROM PROVIDER acetaminophen [Acetaminophen Extra Strength] 500 mg tablet 500 mg PO ONCE Follow-up/Referrals: Pierre Ramon MD [Primary Care Provider] - 3 Days Time of Disposition: 09:28
[2024-11-22 09:05] VITALS: BP 124/69; PULSE 89; RESP 16; TEMP 36.9; O2SAT 100
[2024-11-22 09:15] VITALS: PULSE 89; RESP 16; O2SAT 100
== END 2024-11-22 09:35 | disposition home or self-care (01) ==
PROVIDERS: Emergency Provider Nurse Practitioner Family; PCP Emergency Medicine
DX: J01.00 Acute maxillary sinusitis, unspecified (principal); F17.290 Nicotine dependence, other tobacco product, uncomplicated; F12.90 Cannabis use, unspecified, uncomplicated; J45.909 Unspecified asthma, uncomplicated; M79.7 Fibromyalgia
CPT/HCPCS: 99213; G0463

== ENCOUNTER 2025-02-02 15:36 | Emergency (ER) | payer OTHER, SELFPAY ==
[2025-02-02 15:45] VITALS: BP 129/64; PULSE 66; RESP 19; TEMP 36.8; O2SAT 100
--- NOTE | 2025-02-02 15:59 | ED.URI ---
HPI - URI/Sore Throat General Chief Complaint: Upper Respiratory Infection Stated Complaint: Sinus Time Seen by Provider: 02/02/25 15:55 Source: patient, RN notes reviewed and old records reviewed Mode of arrival: ambulatory Limitations: no limitations History of Present Illness HPI Narrative: 49 year old female who presents to [facility] with complaints of 3 day history of cough which is productive of some yellowish mucous, sore throat, fever of 100.5F on Monday, with some body aches. Patient reports that she has been taking Ibuprofen regularly and has also taken some Tylenol. Patient states that she has 2 kids at home that are not ill. Patient reports that sore throat is worse with cough. Patient admits to eating [facility] MD elicited complaint: cough and sore throat Onset (ago): day(s) (3) Pain scale (0-10): 6 Description of mucous: yellow Able to tolerate fluids by mouth: Yes Treatments prior to arrival: acetaminophen and ibuprofen Related Data Home Medications ?Medication ?Instructions ?Recorded ?Confirmed ?Last Taken ?Type dextroamphetamine-amphetamine 20 20 mg PO DAILY 11/04/19 11/08/24 11/07/24 History mg tablet hydrocodone 5 mg-acetaminophen 325 1 tablet PO DIRECTED PRN Pain 11/04/19 10/31/24 Unknown History mg tablet tramadol 50 mg tablet 50 mg PO DIRECTED 11/04/19 11/08/24 11/07/24 History zolpidem 10 mg tablet 10 mg PO HS 11/04/19 11/08/24 11/07/24 History valacyclovir 500 mg tablet 500 mg PO DAILY 11/04/23 11/08/24 11/07/24 History acetaminophen 500 mg tablet 500 mg PO ONCE 11/08/24 11/08/24 11/08/24 09:30 History (Acetaminophen Extra Strength) bisacodyl 5 mg tablet,delayed mg 11/13/24 Unknown History release Allergies Allergy/AdvReac Type Severity Reaction Status Date / Time No Known Allergies Allergy Unknown Verified 02/02/25 15:53 Review of Systems Review of Systems: CONSTITUTIONAL: Reports malaise, chills, sweats, or fever. EYES: Denies visual changes, redness, or discharge. ENT: Reports rhinorrhea, congestion,no sinus pain, no otalgia and positive for sore throat. CARDIOVASCULAR: Denies chest pain, palpitations, or edema. RESPIRATORY: Reports cough.? Denies dyspnea. GASTROINTESTINAL: Denies abdominal pain, nausea, vomiting, diarrhea SKIN: Denies rash or itching. MUSCULOSKELETAL: Reports myalgia. NEUROLOGIC: Denies headache. All systems reviewed & are unremarkable except as noted in HPI and below PMFSH Past Medical History Medical History Fibromyalgia Endometriosis Asthma Surgical History Surgical History H/O: hysterectomy Family History Family History Father Hypertension Family history of elevated blood lipids Family history of congestive heart failure Family history of lung cancer Family history of coronary artery disease Social History Social History Smoking status: Current every day smoker Tobacco type: e-cigarettes/vaping Alcohol intake: never Substance use type: does not use Living arrangements: alone Gender identity (if verbalized by the patient): Female Comments At time of signature, agree with nursing past medical, surgical, social and family history. There is no relevant family history pertinent to the presenting complaint Exam Narrative: GENERAL: Well-appearing, well-nourished, and in no acute distress. HEAD: Normocephalic EYES: PERRLA, conjunctivae clear ENT: Nares clear, turbinates edematous and erythematous, clear discharge. Mucous membranes moist. TM pearly sellers with dull light reflex bilaterally; no tragal tenderness. Oropharynx erythematous without lesions. Tonsils not enlarged and without exudate, no drooling, no hoarseness, no trismus, uvula midline.some post nasal drainage NECK: Supple. No lymphadenopathy CHEST: Clear to auscultation, breath sounds equal. No wheezing, rhonchi, rales, or stridor. No respiratory distress, speaks in full sentences.productive cough at times of yellowish mucous reported SAO2 100% on room air HEART: Regular rate and rhythm. No murmur heard. SKIN: Warm, dry, no rash. NEURO: Alert and oriented x3. PSYCH: Normal mood and affect Course Course Emergency Course: Patient is aware of diagnosis, understands and agrees to treatment plan.? Anticipatory guidance given.? Patient agrees to follow-up as directed and is aware of reasons to seek care at the emergency department. Portions of this record may have been created with voice recognition software Level of Care: Express Care Visit Vital Signs Vital signs: Vital Signs Temperature 36.8 C 02/02/25 15:45 Pulse Rate 66 02/02/25 15:45 Respiratory Rate 19 02/02/25 15:45 Blood Pressure 129/64 02/02/25 15:45 Pulse Oximetry 100 02/02/25 15:45 Oxygen Delivery Room Air 02/02/25 15:45 Temperature 36.8 C 02/02/25 15:45 Pulse Rate 66 02/02/25 15:45 Respiratory Rate 19 02/02/25 15:45 Blood Pressure 129/64 02/02/25 15:45 Pulse Oximetry 100 02/02/25 15:45 Oxygen Delivery Room Air 02/02/25 15:45 Reviewed MDM - URI/Sore Throat MDM Narrative Medical decision making narrative: Differential diagnosis considered: Canales virus, strep pharyngitis, allergic rhinitis, upper respiratory tract infection, sinusitis, rhinosinusitis, nasopharyngitis. viral pharyngitis, otitis media, otitis externa, pneumonia, bronchitis, viral cough syndrome, viral syndrome, and influenza.? Exam findings show no acute concerns or changes; patient is non-toxic appearing and is in no distress.? Patient is appropriate for outpatient treatment and follow-up. Differential Diagnosis Differential diagnosis: Likely upper respiratory infection, viral infection, influenza, pharyngitis and other (strep pharyngitis) Medical Records Attestation: I reviewed the patient's medical records. Lab Data Attestation: I reviewed the patient's lab results. Lab results narrative: Influenza A negative, Influenza B negative, COVID antiben negative, strep screen negative, Strep culture sent Labs: Lab Results 02/02/25 Range/Units 15:54 POC Influenza A Ag Negative (Negative) POC Influenza B Ag Negative (Negative) POC SARS CoV-2 Ag Negative (Negative) POC Grp A Strep Screen Negative (Negative) Critical Care Time Critical Care Time Critical Care Time: No Discharge Plan Discharge Clinical Impression: URI (upper respiratory infection) Qualifiers: URI type: unspecified URI Qualified Code(s): J06.9 - Acute upper respiratory infection, unspecified Pharyngitis Qualifiers: Pharyngitis/tonsillitis etiology: unspecified etiology Qualified Code(s): J02.9 - Acute pharyngitis, unspecified Patient Disposition: Home Condition: Stable Instructions: Antibiotic Form, Upper Respiratory Infection (ED) Additional Instructions: Increase fluids especially juices and water [id number] cough and cold medicine of your choice for your symptoms Zyrtec,Claritin or Tiffany Cough syrup as prescribed Steroids as directed--take with food heat to the face 20-30 minutes 4-6 times a day for pain Salt water gargles, throat lozenges or throat sprays as desired Your strep test today was negative. A throat culture will be sent to the laboratory for further testing. IF the test is positive, you will receive a phone call within 48 hours and an appropriate antibiotic will be initiated at that time. Use your inhaler as needed Blood pressure follow up recommended due to blood pressure minimally elevated above 120/80 which could indicate pre hypertension. Patient Language: German Prescriptions: New Tussin Cough (DM only) 15 mg/5 mL liquid 15 mg PO ONCE Qty: 118 0RF prednisone 20 mg tablet 20 mg PO BID Qty: 10 0RF No Action hydrocodone-acetaminophen 5-325 mg tablet 1 tablet PO DIRECTED PRN (Reason: Pain) tramadol 50 mg tablet 50 mg PO DIRECTED dextroamphetamine-amphetamine 20 mg tablet 20 mg PO DAILY zolpidem 10 mg tablet 10 mg PO HS valacyclovir 500 mg tablet 500 mg PO DAILY bisacodyl 5 mg tablet,delayed release (DR/EC) guaifenesin [Mucinex] 1,200 mg tablet extended release 12hr 1,200 mg PO Q12H PRN (Reason: cough) Qty: 20 0RF fluticasone propionate [Flonase Allergy Relief] 50 mcg/actuation spray,suspension 1 spray intranasal DAILY Qty: 16 0RF Rx Instructions: administer into each nostril polyethylene glycol 3350 [Miralax] 17 gram/dose powder 238 g PO ONCE Qty: 238 0RF Rx Instructions: FOLLOW INSTRUCTIONS FROM PROVIDER bisacodyl 5 mg tablet 5 mg PO ONCE Qty: 4 0RF Rx Instructions: FOLLOW INSTRUCTIONS FROM PROVIDER acetaminophen [Acetaminophen Extra Strength] 500 mg tablet 500 mg PO ONCE Follow-up/Referrals: Pierre Ramon MD [Primary Care Provider] - Time of Disposition: 16:27 Quality [place] Coma Scale Eyes: Open Verbal: Oriented and Alert Motor: Follows Commands Monse Coma Total Score: 15
[2025-02-02 16:39] LABS: EDCOVIDSCREEN Negative (Negative); EDINFLUASCREEN Negative (Negative); EDINFLUBSCREEN Negative (Negative); EDSTREPNEGPOS1 Negative (Negative)
== END 2025-02-02 16:37 | disposition home or self-care (01) ==
PROVIDERS: Emergency Provider Registered Nurse; PCP Emergency Medicine
DX: J06.9 Acute upper respiratory infection, unspecified (principal); J02.9 Acute pharyngitis, unspecified; Z20.822 Contact with and (suspected) exposure to COVID-19; F17.290 Nicotine dependence, other tobacco product, uncomplicated; J45.909 Unspecified asthma, uncomplicated; M79.7 Fibromyalgia; N80.9 Endometriosis, unspecified
CPT/HCPCS: 87081; 87426; 87804; 87880; 99213; G0463

== ENCOUNTER 2025-07-17 15:53 | Outpatient (CLI) | payer OTHER, SELFPAY ==
--- NOTE | ~2025-07-17 | MM_ITS ---
EXAMINATION: MM screening omari BI w nena HISTORY: Screening TECHNIQUE: Craniocaudal and mediolateral oblique 3-D tomosynthesis images were obtained and synthetic 2-D images were generated. CAD analysis was submitted and interpreted. COMPARISON: Comparison to multiple prior studies sequentially, with oldest reviewed study dated , 01/07/2019 BREAST PARENCHYMAL COMPOSITION: The breasts are heterogeneously dense, which may obscure small masses. FINDINGS: There is no evidence of suspicious mass, calcification, or architectural distortion to suggest malignancy in either breast. IMPRESSION: 1. No mammographic evidence of malignancy. 2. Recommend routine screening mammography in one year. BI-RADS Category 1: Negative Reviewed, dictated and finalized at location B.
== END 2025-07-17 15:54 | disposition home or self-care (01) ==
LOC: ANHFOHIMG 16:01
PROVIDERS: PCP Emergency Medicine; Visit Provider Emergency Medicine
DX: Z12.31 Encounter for screening mammogram for malignant neoplasm of breast (principal)
CPT/HCPCS: 77063; 77067

== ENCOUNTER 2025-10-01 14:07 | Emergency (ER) | payer OTHER, SELFPAY ==
--- NOTE | 2025-10-01 14:18 | ED.URI ---
HPI - URI/Sore Throat General Chief Complaint: Upper Respiratory Infection Stated Complaint: Sore throat, congestion Time Seen by Provider: 10/01/25 14:30 Source: patient, RN notes reviewed and old records reviewed Mode of arrival: ambulatory Limitations: no limitations History of Present Illness HPI Narrative: 49-year-old female presents to the [facility] with 2 day history of sore throat and congestion No treatment prior to arrival. Has had a positive COVID exposure Related Data Home Medications ?Medication ?Instructions ?Recorded ?Confirmed ?Last Taken ?Type dextroamphetamine-amphetamine 20 20 mg PO DAILY 11/04/19 11/08/24 11/07/24 History mg tablet hydrocodone 5 mg-acetaminophen 325 1 tablet PO DIRECTED PRN Pain 11/04/19 10/31/24 Unknown History mg tablet tramadol 50 mg tablet 50 mg PO DIRECTED 11/04/19 11/08/24 11/07/24 History zolpidem 10 mg tablet 10 mg PO HS 11/04/19 11/08/24 11/07/24 History valacyclovir 500 mg tablet 500 mg PO DAILY 11/04/23 11/08/24 11/07/24 History acetaminophen 500 mg tablet 500 mg PO ONCE 11/08/24 11/08/24 11/08/24 09:30 History (Acetaminophen Extra Strength) Allergies Allergy/AdvReac Type Severity Reaction Status Date / Time No Known Allergies Allergy Unknown Verified 10/01/25 14:54 Review of Systems Review of Systems: All systems reviewed & are unremarkable except as noted in HPI and below Constitutional: Constitutional: Reports no additional constitutional complaints ENT: Reports as per HPI, Reports nasal congestion and Reports sore throat Cardiovascular: Cardiovascular: Reports no additional cardiovascular complaints, Denies chest pain and Denies dyspnea Respiratory: Respiratory: Reports no additional respiratory complaints, Denies chest congestion, Denies cough and Denies dyspnea Musculoskeletal: Musculoskeletal: Reports no additional musculoskeletal complaints Integumentary/Breasts: Skin/Breast: Reports system reviewed and no additional complaints, except as docu PMFSH Past Medical History Medical History Fibromyalgia Endometriosis Asthma Surgical History Surgical History H/O: hysterectomy Family History Family History Father Hypertension Family history of elevated blood lipids Family history of congestive heart failure Family history of lung cancer Family history of coronary artery disease Social History Social History Smoking status: Current every day smoker Tobacco type: e-cigarettes/vaping Alcohol intake: never Substance use type: does not use Living arrangements: alone Gender identity (if verbalized by the patient): Female Comments At the time of my signature, I reviewed and agree with the nursing past medical, surgical, social, and family history. There is no relevant family history pertinent to the patient complaint. Exam Const: General: cooperative, healthy appearing, comfortable, no acute distress, well developed, alert and well nourished Nutritional Appearance: well nourished Orientation/consciousness: patient oriented x3 Limitations: no limitations HENMT: Head: normal to inspection Ears: hearing grossly normal bilaterally, external ears normal, TM's normal bilaterally and EAC's normal Face and sinus: normal facial exam, sinuses nontender and face symmetric Mouth: Yes Normal oral and palatal mucosa present, Yes lip normal, Yes tongue normal and Yes moist mucous membranes Throat: posterior oropharynx normal, uvula midline and no uvular edema Eyes: General: appearance normal, both eyes and all related structures Alignment and Position: alignment normal Neck: Neck: normal visual inspection, full ROM, no lymphadenopathy and no meningeal signs Chest: Chest palpation & inspection: normal inspection of the chest Resp: Effort & Inspection: normal respiratory effort and able to speak in complete sentences Auscultation: clear to auscultation bilaterally, no crackles, no rales, no rhonchi and no wheezes Cardio: Rate: regular rate Skin: General skin exam: normal color and no rashes or lesions noted Neuro: General: patient oriented x3, gait normal, moves all extremities and no meningeal signs Cognition (Neuro): normal cognition Speech: normal speech Gait exam (Neuro): Normal gait present Extrem: General: normal to inspection, full ROM, capillary refill normal and normal gait Psych: Appearance: grossly normal and well kempt Mental Status: mental status grossly normal Speech and movement: Normal speech and movement present and Clear speech present Affect: normal affect Attitude: cooperative Course Course Level of Care: Express Care Visit Vital Signs Vital signs: Vital Signs Temperature 97.6 F 10/01/25 14:28 Pulse Rate 71 10/01/25 14:28 Respiratory Rate 18 10/01/25 14:28 Blood Pressure 130/61 10/01/25 14:28 Pulse Oximetry 100 10/01/25 14:28 Oxygen Delivery Room Air 10/01/25 14:28 Temperature 97.6 F 10/01/25 14:28 Pulse Rate 71 10/01/25 14:28 Respiratory Rate 18 10/01/25 14:28 Blood Pressure 130/61 10/01/25 14:28 Pulse Oximetry 100 10/01/25 14:28 Oxygen Delivery Room Air 10/01/25 14:28 reviewed MDM MDM Narrative Medical decision making narrative: Patient sitting in exam room. Patient is nontoxic, vitals are stable. Patient presents 2 day history of URI symptoms. COVID exposure. Patient is COVID positive. Patient is appropriate for outpatient treatment with close follow-up Discharge instructions reviewed with patient, as well as provided in writing per nursing staff. The instructions also include specific and strict return/GO TO THE ER as well as f/u information. All questions have been answered, and the patient deny any further questions with discharge and discharge plan. Some parts of this dictation were generated by voice recognition software and may contain typographical and/or grammatical inaccuracies. Differential Diagnosis Differential Diagnosis: Differential diagnostic considerations for upper respiratory infection include upper respiratory infection, croup, otitis media, sinusitis, viral infection, bronchitis, influenza, pharyngitis, strep, uvulitis.? Lab Data Labs: Lab Results 10/01/25 Range/Units 14:43 POC Influenza A Ag Negative (Negative) POC Influenza B Ag Negative (Negative) POC SARS CoV-2 Ag Positive (Negative) POC Grp A Strep Screen Positive (Negative) Reviewed Strep was negative Discharge Plan Discharge Clinical Impression: COVID-19 Patient Disposition: Home Condition: Stable Instructions: COVID-19 (Coronavirus Disease 2019) (ED), COVID-19 and Chronic Health Conditions (ED), COVID-19: Slow the Coronavirus Spread (ED) Additional Instructions: Your rapid strep swab was negative today at [facility]. A throat culture will be sent to the laboratory for further testing. If the test is positive, you will receive a phone call within 48 hours and an appropriate antibiotic will be initiated at that time. Your rapid COVID test was positive for COVID-19 Your rapid flu test was negative Your symptoms are likely due to a viral illness, which is not treated with antibiotics. Typically viral infections last 7-10 days, can linger for couple of weeks. It is very important to treat your symptoms. Drink plenty of water, Gatorade, Pedialyte, ice pops or Jell-O. -Alternate Tylenol and Motrin per package directions for fever or pain. You can alternate every 4 hours -Antihistamine medication such as Zyrtec/Claritin/Tiffany during the day can help improve symptoms. -doing daily nasal irrigations can help relieve pressure your sinuses. Things like a Neti pot -Use Flonase twice a day for 5 days then daily to help reduce the inflammation and dry up your sinuses. -You can also use Mucinex. Be sure to drink plenty of water with this medication at least 8 ounces with every dose and it is important to drink 8 to 10 glasses of water per day. Water is a natural decongestant -Eat and drink things that are easy to swallow, like tea or soup, or popsicles. -Oral rinses such as: Salt water gargles and/or may use topical anesthetic (eg. Chloraseptic spray) or lozenges to relieve dryness or throat pain). -Frequent hand washing or hand supervisor molding is one of the best ways to prevent spread of infection. -Using a vaporizer or humidifier at night will also help thin secretions and help with coughing up phlegm. -Follow up with primary care provider in 7-10 days if condition is not improving - For new or worsening symptoms go directly to the nearest ER Patient Language: German Prescriptions: No Action hydrocodone-acetaminophen 5-325 mg tablet 1 tablet PO DIRECTED PRN (Reason: Pain) tramadol 50 mg tablet 50 mg PO DIRECTED dextroamphetamine-amphetamine 20 mg tablet 20 mg PO DAILY zolpidem 10 mg tablet 10 mg PO HS valacyclovir 500 mg tablet 500 mg PO DAILY fluticasone propionate [Flonase Allergy Relief] 50 mcg/actuation spray,suspension 1 spray intranasal DAILY Qty: 16 0RF Rx Instructions: administer into each nostril acetaminophen [Acetaminophen Extra Strength] 500 mg tablet 500 mg PO ONCE Follow-up/Referrals: Pierre Ramon MD [Primary Care Provider, Family Practice] - 2 Weeks Clinical Impression: COVID-19 Time of Disposition: 14:44
[2025-10-01 14:28] VITALS: BP 130/61; PULSE 71; RESP 18; TEMP 36.4; O2SAT 100
[2025-10-01 14:56] LABS: EDCOVIDSCREEN Positive (Negative); EDINFLUASCREEN Negative (Negative); EDINFLUBSCREEN Negative (Negative); EDSTREPNEGPOS1 Positive (Negative)
== END 2025-10-01 15:36 | disposition home or self-care (01) ==
PROVIDERS: Emergency Provider Nurse Practitioner; PCP Emergency Medicine
DX: U07.1 COVID-19 (principal); F17.290 Nicotine dependence, other tobacco product, uncomplicated; J45.909 Unspecified asthma, uncomplicated; M79.7 Fibromyalgia; N80.9 Endometriosis, unspecified
CPT/HCPCS: 87081; 87426; 87804; 87880; 99213; G0463